=== PATIENT | female | born 1960 | race African-American/Black ===

== ENCOUNTER → 2017-11-01 11:20 | Outpatient (CLI) | payer MEDICAID, SELFPAY ==
[2017-11-06 15:19] LABS: HPV APTIMA, High Risk Positive (Negative)
== END ==
PROVIDERS: Visit Provider Obstetrics & Gynecology
DX: Z12.4 Encounter for screening for malignant neoplasm of cervix (principal); Z01.419 Encounter for gynecological examination (general) (routine) without abnormal findings
CPT/HCPCS: 88175; G0145

== ENCOUNTER → 2017-12-09 11:54 | Outpatient (CLI) | payer MEDICAID, SELFPAY ==
--- NOTE | 2017-12-09 | ECC_PTH ---
PATIENT: GALE HENNING LOC: [facility] U#:[id number] AGE/SX: 65/F ROOM: RE12/09/[address]: Dr. Franca Aden MD : 1960 BED: DIS: SPEC #: [id number] RECD: 12/09/17 14:19 STATUS: MEHDI FRACISCO #: [id number] ELENI: 12/09/17 00:[address]: Franca Little DEPT: SURGICAL PATHOLOGY RECD BY: Raul Vyas Tissues: Endocervical Procedures: Surgery Specimen Level IV HEADER OPERATION: Colposcopy PRE-OP DIAGNOSIS: LGSIL, positive HPV 11/01/17, LMP 12/09/17 TISSUE SUBMITTED: Endocervical curettings MICROSCOPIC DIAGNOSIS Endocervical curettings: Detached and unoriented fragments of ectocervical epithelium with focal changes suspicious mild dysplasia. Fragments of benign endocervical epithelium, blood and mucous. SJ:terrence 12/10/17 COMMENT Immunohistochemistry ([id number]) for surrogate HPV marker (p16) supports the above diagnosis. MICROSCOPIC DESCRIPTION Slides are reviewed. GROSS DESCRIPTION Received in fixative is one container labeled with the patient's name and designated ECC. The specimen consists of multiple fragments of hemorrhagic soft tissue mixed with mucoid tissue that in aggregate measure 1.5 x 1 x 0.1 cm. The specimen is totally submitted in one cassette. / SAI:terrence 12/09/17 TC:5 CPT: 83735
--- NOTE | 2017-12-09 | IMM_PTH ---
PATIENT: GALE HENNING LOC: [facility] U#:[id number] AGE/SX: 65/F ROOM: RE12/09/[address]: Dr. Franca Aden MD : 1960 BED: DIS: SPEC #: [id number] RECD: 12/10/17 10:42 STATUS: MEHDI FRACISCO #: [id number] ELENI: 12/09/17 00:[address]: Franca Little DEPT: IMMUNOHISTOCHEMISTRY RECD BY: Princess Canseco Tissues: Endocervical Procedures: p16 (initial) KI-67 (add) PHYSICIAN & INSTITUTION [place] [id number] SPECIMEN INFORMATION: Tissue Source: Endocervical curettings Clinical Info: LGSIL, positive HPV Specimen Number: [id number] CPT code: 90370, 74834 METHODOLOGY: Deparaffinized sections of prefer/formalin-fixed tissue or PAP/DQ stained slides are incubated with monoclonal/polyclonal antibodies/oligonucleotide probes. Localization is made via biotin free immunoperoxidase method. Appropriate controls are performed and reacted as expected. Results on target cell population are indicated in the following table: RESULTS: ANTIBODY / CLONE RESULT P16 (E6H4) positive, focal and patchy Ki-67 (30-9) negative These tests were developed and their performance characteristics determined by [facility]. They may not have been cleared or approved by the U.S. Food and Drug Administration. The FDA has determined that such clearance or approval is not necessary. INTERPRETATION: Endocervical curettings: Detached and unoriented fragments of squamous epithelium with focal changes suspicious for mild dysplasia. SJ:terrence 12/10/17
[2017-12-09 13:37] LABS: Absolute Lymphocyte Count 2.53 X10^3/ul (0.83-4.51); Absolute Neutrophil Count 3.2 X10^3/uL (2.0-7.7); Basophil# 0.03 X10^3/uL; Basophil% 0.4 % (0-1); Eosinophil# 0.23 X10^3/uL; Eosinophils% 3.4 % (0-5); Hematocrit 41.5 % (37-47); Hemoglobin 13.5 g/dl (12.0-15.0); Lymphocyte # 2.53 X10^3/ul (4.0); Lymphocyte % 37.9 % (19-41); Mean Corp Hgb Conc 32.5 g/gl (32-36); Mean Corpuscular Hgb 28.7 pg (27.0-32.0); Mean Corpuscular Volume 88.1 fL (81-99); Mean Platelet Vol. 11.9 fl (6.2-12.0); Monocyte# 0.68 X10^3/uL; Monocyte% 10.2 % (0-10); Neutrophil # 3.19 X10^3/uL (2.7-7.7); Platelet Count 226 K/mm3 (150-450); RBC Distribution Width CV 13.3 % (11.6-14.6); Red Blood Count 4.71 M/mm3 (4.2-5.4); White Blood Count 6.7 K/mm3 (4.4-11.0)
[2017-12-09 13:38] LABS: POSITIVE COUNT NO; POSITIVE DIFFERENTIAL NO; POSITIVE MORPHOLOGY NO
[2017-12-09 14:00] LABS: Free T3 2.7 pg/mL (2.18-3.98); T4 Free Direct 0.93 ng/dL (0.76-1.46); Thyroid Stim Hormone (TSH) 3.14 uIU/mL (0.358-3.74)
[2017-12-09 15:28] LABS: M R Staph aureus DNA By PCR Negative (Negative); Probe Check PASS; Specimen Processing Control PASS; Staph aureus DNA By PCR NEGATIVE (Negative)
[2017-12-09 15:38] LABS: M R Staph aureus DNA By PCR Negative (Negative); Probe Check PASS; Specimen Processing Control PASS
== END ==
PROVIDERS: Visit Provider Obstetrics & Gynecology
DX: R87.612 Low grade squamous intraepithelial lesion on cytologic smear of cervix (LGSIL) (principal)
CPT/HCPCS: 36415; 84439; 84443; 84481; 85025; 87640; 87641; 88305; 88341; 88342

== ENCOUNTER → 2017-12-09 14:33 | Outpatient (CLI) | payer MEDICAID, SELFPAY | PROVIDERS: Visit Provider Obstetrics & Gynecology | DX: R87.612 Low grade squamous intraepithelial lesion on cytologic smear of cervix (LGSIL) (principal) ==

== ENCOUNTER → 2018-01-16 15:08 | Outpatient (CLI) | payer MEDICAID, SELFPAY ==
--- NOTE | 2018-01-16 15:10 | US_ITS ---
STUDY: ULTRASOUND BREAST - RIGHT REASON FOR EXAM: Female, 57 years old. Abnormal mammogram TECHNIQUE: Axial and longitudinal images of the RIGHT breast were performed with a high resolution ultrasound transducer. COMPARISON: None. FINDINGS: RIGHT Breast: There is a lesion in the upper inner quadrant. The lesion measures 0.4 x 0.4 x 0.3 cm in size. Clock notation: 3 o'clock position. Distance from nipple: 4 cm. Posterior Enhancement: No. Posterior Shadowing: Moderate. Margins: Sharp and smooth. Echogenicity: Isoechoic. Compression effect on Shape: No change. US/Breast Complete Unilateral IMPRESSION: Probably benign lesion. Follow-up ultrasound in 6 months is recommended to ensure stability. ASSESSMENT CATEGORY: BIRADS Category 3: Probably Benign - Short-Interval Follow-up Suggested. A letter regarding these results will be sent to the patient by the facility within 30 days. Electronically Signed: Dayton Falcon MD at 11:18 EDT Tel , Service support ,
== END ==
PROVIDERS: Family Provider Nurse Practitioner Family; PCP Nurse Practitioner Family; Visit Provider Surgery
DX: R92.8 Other abnormal and inconclusive findings on diagnostic imaging of breast (principal)
CPT/HCPCS: 76641

== ENCOUNTER 2018-01-30 11:25 | Day surgery (SDC) | payer MEDICAID, SELFPAY ==
--- NOTE | 2018-01-29 12:19 | EKG12_ITS ---
Test Reason : PRE OP Blood Pressure : / mmHG Vent. Rate : 055 BPM Atrial Rate : 055 BPM P-R Int : 148 ms QRS Dur : 076 ms QT Int : 394 ms P-R-T Axes : 055 034 016 degrees QTc Int : 376 ms Sinus bradycardia Otherwise normal ECG Confirmed by MARIKA CHÁVEZ, LIZBETH ([id number]), brands editor CORNELIUS PUENTES ([id number]) on 01/31/2018 9:34:41 AM Referred By: Franca Paz Confirmed By:LIZBETH HAIRSTON MD
[2018-01-29 12:35] LABS: Hematocrit 44.1 % (37-47); Hemoglobin 14.5 g/dl (12.0-15.0); Mean Corp Hgb Conc 32.9 g/gl (32-36); Mean Corpuscular Hgb 29.3 pg (27.0-32.0); Mean Corpuscular Volume 89.1 fL (81-99); Mean Platelet Vol. 11.9 fl (6.2-12.0); Platelet Count 220 K/mm3 (150-450); RBC Distribution Width CV 13.9 % (11.6-14.6); RBC Distribution Width SD 45.4 fl (35.1-43.9); Red Blood Count 4.95 M/mm3 (4.2-5.4); White Blood Count 6.1 K/mm3 (4.4-11.0)
[2018-01-29 12:47] LABS: Partial Thromboplast Time 29.2 Seconds (24.1-36.2); Prothrombin Time (Protime)PT. 12.7 SECONDS (11.7-14.9); Scan Indicated on CBC? Y/N NO
[2018-01-29 12:59] LABS: Anion Gap 7 (5-15); BUN 8 mg/dL (7-18); BUN/Creat Ratio 11.4 RATIO (10-20); Calcium,Total 9.5 mg/dL (8.5-10.1); Chloride 105 mmol/L (98-107); EST Glomerular Filtration Rate 92 mL/min (>60); Est Glom Filt Rate - Afr Amer 111 mL/min (>60); Glucose 85 mg/dL (74-106); Potassium 4.1 mmol/L (3.5-5.1); Sodium Level 139 mmol/L (136-145)
[2018-01-30 11:45] VITALS: BP 187/93; PULSE 72; RESP 16; TEMP 36.8; O2SAT 99; BMI 34.0
[2018-01-30 11:49] LABS: Internal QC Validated? YES +Cl - CLEAR BKGD; Pregnancy, Urine Negative Negative
[2018-01-30] MEDS: FERRIC SUBSULFATE 8 GM SOLN (16:50)
--- NOTE | 2018-01-30 17:02 | PCM.DC.LEE ---
Discharge Diet: No Restrictions Discharge Activity: Return to Normal Activity, May Shower, - - No tub bath, may drive in 24-48 hours May resume sexual activity in: 4 weeks Lifting Restrictions: 20 lb Call your doctor if you observe: Fever of 101 or Higher, Inability to urinate, Inability to have a bowel movement, Using more than one pad per hour, Shortness of breath, Chest pain, Calf discomfort, Uncontrolled pain Allergies/Adverse Reactions: Allergies No Known Allergies Allergy (Verified 01/09/18 13:11) Medications to take at Discharge multivitamin tablet 1 tab PO QAM 12/26/17 silver sulfadiazine 1 % topical cream 1 applic TOPICAL PRN PRN 12/26/17 Ibuprofen 600 mg PO TID PRN #30 tab 01/30/18 The following prescriptions were given: Ibuprofen 600 mg PO TID PRN #30 tab PRN Reason: Pain Primary Care Physician: David Case, MAGAZINE JOURNALIST-C [Primary Care Provider] - Please Follow Up With: Franca Paz MD When: 2-4 weeks
[2018-01-30 17:03] VITALS: BP 150/90; BP 187/93; PULSE 73; RESP 16; TEMP 36; O2SAT 98
--- NOTE | 2018-01-30 17:03 | PCM.OPRPT ---
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 ectocervix. 2. top hat. 3. ecc Estimated Blood Loss (mL): 10 Description of Procedure: Patient was brought to the operating room and signed and was performed. She is placed in a dorsal supine position and induced under MAC anesthesia. She was then repositioned to dorsal lithotomy. The perineum and vagina were prepped and draped in sterile fashion. A insulated speculum was placed into the vagina and her cervical block totaling 20 cc of 1% lidocaine with epinephrine was administered. Lugol's solution was applied to the ectocervix. The ectocervical loop excisional biopsy was obtained. This was followed by a top hat and endocervical curettage. The cervical excisional bed was fulgurated using a ball electrode with excellent hemostasis. The procedure was complete. Sponge counts were correct ?2. The patient was awakened and transferred to the recovery room without complication. - Complications None - Admit VTE Documentation VTE Present on Admission: No VTE Mechan Device Prophylaxis: SCD's
[2018-01-30 17:15] VITALS: BP 147/107; BP 187/93; PULSE 67; RESP 18; O2SAT 96
[2018-01-30 17:30] VITALS: BP 141/83; BP 187/93; PULSE 64; RESP 18; O2SAT 98
[2018-01-30 17:47] VITALS: BP 155/78; BP 187/93; PULSE 64; RESP 18; TEMP 36.7; O2SAT 99
[2018-01-30 18:10] VITALS: BP 187/93
--- NOTE | 2018-01-31 | IMM_PTH ---
PATIENT: GALE HENNING LOC: [facility] – [place] U#:[id number] AGE/SX: 57/F ROOM: RE01/30/[address]: Dr. Franca Aden MD : 1960 BED: DIS: 01/30/2018 SPEC #: [id number] RECD: 02/03/18 12:11 STATUS: MEHDI REQ #: [id number] ELENI: 01/31/18 00:[address]: Franca Little DEPT: IMMUNOHISTOCHEMISTRY RECD BY: Karen Amador ENTERED: 02/03/18 12:11 SP TYPE: IMMUNO OTHR DR: David Case, EMBOSSER APPRENTICE-C Tissues: B - UTERINE CERVIX LEEP Procedures: p16 (initial) KI-67 (add) PHYSICIAN & INSTITUTION [place] [id number] SPECIMEN INFORMATION: Tissue Source: B. Warren wilson (cervix) open at 12 o?clock Clinical Info: Cervical dysplasia, low grade squamous intraepithelial lesion of cervix, high risk HPv Specimen Number: [id number], B4 CPT code: 66983, 65357 METHODOLOGY: Deparaffinized sections of prefer/formalin-fixed tissue or PAP/DQ stained slides are incubated with monoclonal/polyclonal antibodies/oligonucleotide probes. Localization is made via biotin free immunoperoxidase method. Appropriate controls are performed and reacted as expected. Results on target cell population are indicated in the following table: RESULTS: ANTIBODY / CLONE RESULT Block B4 P16 (E6H4) positive, patchy staining Ki-67 (30-9) positive, low to moderate These tests were developed and their performance characteristics determined by [facility]. They may not have been cleared or approved by the U.S. Food and Drug Administration. The FDA has determined that such clearance or approval is not necessary. INTERPRETATION: Paola lazo (cervix), LEEP cone: Mild squamous dysplasia Case has been reviewed in consultation with Dr. Melgar who concurs with the above diagnosis. IDC:VERO SJ:geri 02/04/18
--- NOTE | 2018-01-31 | CONE_PTH ---
PATIENT: GALE HENNING [place] [facility] [id number] AGE/SX: 57/F ROOM: RE01/30/[address]: Dr. Franca Aden MD : 1960 BED: DIS: 01/30/2018 SPEC #: [id number] RECD: 01/31/18 13:20 STATUS: MEHDI FRACISCO #: [id number] ELENI: 01/31/18 00:[address]: Franca Little DEPT: SURGICAL PATHOLOGY RECD BY: Raul Vyas ENTERED: 01/31/18 13:21 SP TYPE: Leep Cone GUI DR: David Case, LEAD MANUFACTURING ENGINEERING TECH-C Tissues: A - UTERINE CERVIX LEEP B - UTERINE CERVIX LEEP C - Endocervical Procedures: Surgery Specimen Level IV Surgery Specimen Level V HEADER OPERATION: LEEP cone PRE-OP DIAGNOSIS: Cervical dysplasia, low grade squamous intraepithelial lesion of cervix, high risk HPV TISSUE SUBMITTED: A. Ecto cervix, open at 6 o?clock, B. Top hat (cervix)open at 12 o?clock, C. Endocervical curettings after LEEP MICROSCOPIC DIAGNOSIS A. Ectocervix, LEEP conization: Negative for dysplasia. B. Top hat cervix, LEEP conization: Focal mild squamous dysplasia with HPV changes (LGSIL and LOWELL I). Resection margins are free of dysplastic changes. See comment. C. Endocervical curettings after LEEP. Fragments of benign ecto and endocervical epithelium with focal squamous metaplasia. Negative for dysplasia. Fragments of benign endometrial tissue. Fragments of foreign material with degenerative changes and calcification. SAI:kirill 02/03/18 COMMENT B. Immunohistochemistry ([id number]) supports the above diagnosis. Please make reference to previous specimen [id number] endocervical curettings with diagnosis of detached and unoriented fragments of ectocervical epithelium with focal changes, suspicious for mild dysplasia. Case has been reviewed in consultation with Dr. Melgar who concurs with the above diagnosis. IDC:AM MICROSCOPIC DESCRIPTION Slides are reviewed. GROSS DESCRIPTION A. Received in fixative is one container labeled with the patient's name and designated left cervix open at 6 o'clock. The specimen consists of perez indurated piece of soft consistent with LEEP conization measuring 2 x 1 x 0.4 cm. No mucosal lesion is identified. No mucosal surface is inked black. Endocervical margins inked black. This specimen is serially sectioned and submitted entirely in 4 cassettes as follows: 1 ? 12 to 3 o?clock, 2 ? 3 to 6 o?clock, 3 ? 6 to 9 o? clock, 4 ? 9 to 12 o?clock. B. Received in fixative is one container labeled with the patient's name and designated top hat cervix open at 12 o?clock. The specimen consists of perez indurated piece of tissue consistent with LEEP conization measuring 1.4 x 1 x 0.6 cm. No mucosal lesion is identified. No mucosal surface is inked black. The specimen is serially sectioned and submitted entirely in 4 cassettes as follows: 1 ? 12 to 3 o?clock, 2 ? 3 to 6 o?clock, 3 ? 6 to 9 o?clock, 4 ? 9 to 12 o?clock. C. Received in fixative is one container labeled with the patient's name and designated endocervical curettings after LEEP. multiple fragments of perez hemorrhagic soft tissue that in aggregate measure 1.5 x 0.2 x 0.1 cm. The entire specimen is submitted in one cassette. SAI:kirill 01/31/18 TC:5 CPT: 35936 x2, 37091
== END 2018-01-30 18:25 | disposition home or self-care (01) ==
LOC: SDC 11:25 → AC 11:26
PROVIDERS: Family Provider Nurse Practitioner Family; PCP Nurse Practitioner Family; Visit Provider Obstetrics & Gynecology
PROC: 0UBC7ZZ Excision of Cervix, Via Natural or Artificial Opening (ICD-10-PCS; CPT 57522; principal; 2018-01-30 12:55)
DX: N87.0 Mild cervical dysplasia (principal); Z87.891 Personal history of nicotine dependence
CPT/HCPCS: 57522; 36415; 80048; 81025; 85027; 85610; 85730; 86850; 86900; 88305; 88307; 88341; 88342; 93005; J7120; J2405

== ENCOUNTER → 2018-02-19 12:27 | Outpatient (CLI) | payer MEDICAID, SELFPAY ==
--- NOTE | 2018-02-19 | BRBX_PTH ---
PATIENT: GALE HENNING LOC: [facility] U#:[id number] AGE/SX: 65/F ROOM: RE02/19/[address]: Dr. Willis Woodard MD : 1960 BED: DIS: SPEC #: [id number] RECD: 02/19/18 14:01 STATUS: MEHDI FRACISCO #: [id number] ELENI: 02/19/18 00:[address]: Willis Woodard DEPT: SURGICAL PATHOLOGY RECD BY: Raul Vyas ENTERED: 02/19/18 14:01 SP TYPE: BREAST BX OTHR DR: David Case, STRAP SEWER-C Tissues: Right breast, NOS Procedures: Surgery Specimen Level IV HEADER OPERATION: Ultrasound-guided right breast biopsy PRE-OP DIAGNOSIS: Right breast nodule TISSUE SUBMITTED: Right breast core tissue ISCHEMIC TIME: 1 minute FIXATION TIME: 6.5 hours MICROSCOPIC DIAGNOSIS Right breast, ultrasound-guided core biopsy: Fragments of fibroadipose tissue with chronic inflammation and dystrophic calcifications. Numerous blood clots. Breast tissue is not identified in the submitted specimen. Negative for atypia or malignancy. SAI:terrence 02/20/18 COMMENT Correlation with clinical, radiologic findings and appropriate follow up are necessary. MICROSCOPIC DESCRIPTION Slides are reviewed. GROSS DESCRIPTION Received is one container labeled with the patient's name and not further designated. The specimen consists of multiple elongated fragments of perez-yellow fibroadipose tissue that in aggregate measure 2.5 x 1.5 x 0.2 cm. Also present in the container are multiple blood clots measuring in aggregate 3 x 2.5 x 0.3 cm. The entire specimen is submitted in two cassettes as follows: 1 ? blood clots, 2 ? adipose tissue. / SAI:terrence 02/19/18 TC:5 [facility]: [id number]
--- NOTE | 2018-02-19 12:31 | US_ITS ---
STUDY: ULTRASOUND BREAST - RIGHT REASON FOR EXAM: Female, 57 years old. Abnormal right breast ultrasound. TECHNIQUE: Axial and longitudinal images of the RIGHT breast were performed with a high resolution ultrasound transducer. COMPARISON: Comparison is made with prior ultrasound the right breast dated January 16, 2018. FINDINGS: RIGHT Breast: There is a 4 mm x 4 mm x 2 mm well-defined hyperechoic nodule with posterior shadowing. This may represent a calcified cyst. Ultrasound-guided biopsy was performed. The probe is within the nodule. A clip was placed. US/US Breast Biopsy 1st Lesion IMPRESSION: Successful ultrasound-guided biopsy of the echogenic nodule at the 2:00 position of the breast at 4 sinus on the nipple. ASSESSMENT CATEGORY: BIRADS Category 2: Benign. A letter regarding these results will be sent to the patient by the facility within 30 days. Electronically Signed: Michel Kohler MD at 14:23 EDT Tel [phone], Service support ,
--- NOTE | 2018-03-04 18:20 | PCM.OPRPT ---
Problem List (1) Abnormal finding on breast imaging Status: Acute Report of Operation Date of Procedure: 02/19/18 Pre-Operative Diagnosis: Abnormal ultrasound to right breast Post-Operative Diagnosis: Same Surgery/Procedure Performed:: Ultrasound-guided needle core biopsy of right breast Type of Anesthesia:: Local Description of Procedure: Patient was brought into the ultrasound room. The right breast was ultrasounded at the 2 o'clock position. The lesion was identified. The breast was prepped with Betadine. 1% lidocaine plain was injected. A small skin sabine was made. Under ultrasound guidance 3 needle core biopsies of this lesion were obtained. Under ultrasound guidance a small titanium clip was placed. Sterile dressings were applied. The patient tolerated the procedure well. - Admit VTE Documentation VTE Present on Admission: No VTE Mechan Device Prophylaxis: None VTE Pharm Prophylaxis ordered?: No Reason prophylaxis not ordered:: Treatment Not Indicated
== END ==
PROVIDERS: Family Provider Nurse Practitioner Family; PCP Nurse Practitioner Family; Visit Provider Surgery
DX: R92.8 Other abnormal and inconclusive findings on diagnostic imaging of breast (principal)
CPT/HCPCS: 19083; 88305

== ENCOUNTER → 2018-07-21 17:00 | Outpatient (CLI) | payer MEDICAID, SELFPAY ==
--- NOTE | 2018-07-21 17:00 | EMB_PTH ---
PATIENT: GALE HENNING LOC: [facility] U#:[id number] AGE/SX: 65/F ROOM: RE07/21/[address]: Dr. Franca Aden MD : 1960 BED: DIS: SPEC #: [id number] RECD: 07/22/18 11:04 STATUS: MEHDI FRACISCO #: [id number] ELENI: 07/21/18 17:[address]: Franca Little DEPT: SURGICAL PATHOLOGY RECD BY: Hank Ross ENTERED: 07/22/18 12:04 SP TYPE: ENDOM BX/C GUI DR: David Case, CHELSEA-C Tissues: Endometrium, NOS Procedures: Surgery Specimen Level IV HEADER OPERATION: Endometrial biopsy PRE-OP DIAGNOSIS: Premenopausal menorrhagia TISSUE SUBMITTED: Endometrial biopsy MICROSCOPIC DIAGNOSIS Endometrial biopsy: Proliferative endometrium with glandular and stromal breakdown and blood clots. Desquamated benign ectocervical epithelial cells. SJ:terrence 07/23/18 MICROSCOPIC DESCRIPTION Slides are reviewed. GROSS DESCRIPTION Received in fixative is one container labeled with the patient's name and designated EM biopsy. The specimen consists of multiple fragments of hemorrhagic soft tissue that in aggregate measure 2.5 x 2.5 x 0.2 cm. The specimen is totally submitted in one cassette. / SAI:terrence 07/22/18 TC:5 CPT: 16048
--- OUTSIDE RECORDS SUMMARY | 2018-10-23 20:08 | XMS RPT_ITS ---
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 1 tab PO QAM 12/26/17 [History Confirmed 01/09/18] silver sulfadiazine 1 % topical cream 1 applic TOPICAL PRN PRN 12/26/17 [History Confirmed 01/09/18] Ibuprofen 600 mg PO TID PRN #30 tab 01/30/18 [Rx] PFSH Surgical History Abscess, neck (Acute) Hx of hand surgery (Acute) Family History Mother Hypertension Social History Smoking Status: Former smoker alcohol intake: current alcohol intake frequency: holidays/special occasions only HPI HPI HPI: IMANI HENNING, is a 57 F who presents to the office today for abnormal mammogram and ultrasound. Patient had her mammogram and ultrasound completed on 10/17/2016. The mammogram was incomplete showing a 7 mm density in the right breast which appear to be indeterminate and ultrasound was recommended the ultrasound was negative since the mammographic lesion was probably benign representing a intramammary lymph node a follow- up of the right diagnostic mammogram in 6 months was recommended to demonstrate stability. I however do not have these films available to me ROS General General: Yes fatigue; no weight change, appetite, colon cancer, breast cancer or weakness HEENT HEENT: No difficulty swallowing, eye injury, eye surgery, swollen glands or hoarseness Endo Endocrine: No thyroid disease, diabetes mellitus, thyroid cancer, Hair loss, heat intolerance or cold intolerance Skin Skin: Yes rash; no changing moles Breast Breast: No left breast lump, right breast lump, nipple discharge, breast pain, abnormal mammogram, abnormal US or breast enlargement Musc Musculoskeletal: No back problems, arthritis, rheumatoid arthritis, gout or joint pain Cardio Cardiovascular: Yes high blood pressure; no murmur, pacemaker, heart disease, atrial fibrillation, heart attack, heart stent, palpitations, shortness of breat with exertion or chest pain Psych Psychiatric: No depression, anxiety or hearing voices Resp Respiratory: Yes cough, No shortness of breath, No sleep apnea, No COPD, No asthma, No emphysema, No wheezing Gastro Gastrointestinal: Yes abdominal pain, No nausea or vomiting, No diarrhea, No constipation, No blood in stool, No acid reflux, No hemorrhoids, No ulcers, No gallbladder problem, No black,tarry stools Ayo Hematologic: No blood thinners, No blood disorders, No bleeding, No anemia, No blood clots Neuro Neurologic: No system reviewed and no additional complaints, except as docu, No as per HPI, No abnormal walking, No abnormal hearing, No abnormal movements, No abnormal speech, No behavioral changes, No burning sensations, No confusion, No seizure-like activity, No unsteadiness, No dizziness, No localized weakness, No frequent falls, No headache(s), No lack of coordination, No loss of vision, No memory loss, No numbness, No other visual disturbances, No radiating pain, No restless legs, No sensory deficit, No fainting, No tingling, No tremor(s), No weakness, No other Exam HENMT Head: normal to inspection, normocephalic, atraumatic Mouth: moist mucous membranes, oropharynx normal Eyes General: appearance normal, both eyes and all related structures Sclera: sclerae normal Neck Neck: no lymphadenopathy noted, trachea midline Neck mass: No Thyroid: thyroid normal Lymphatic: no lymphadenopathy noted Chest Breast inspection: normal inspection of the breasts Breast Palpation: No nipple discharge Resp Other: Respiratory Exam: Deferred Cardio Heart Sounds: no murmurs Other: Cardiac Exam: Deferred GI Other: GI Exam: Deferred Other: Rectal Exam: Deferred Extrem Other: Extremity Exam: Deferred Assessment AND Plan Problems 1. Abnormal mammogram of right breast R92.8 Plan I have discussed above with the patient. I have recommended ultrasound guided needle core breast biopsy with vacuum assistance. I have described the procedure to the patient. I have discussed with the patient that sometimes the ultrasound lesion may be artifact and is user dependent and therefore prior to undergoing the procedure, the patient will have a definitive US to ensure that the lesion is truly present and is not artifact. A marker clip will be placed to identify the location. Patient has been counseled to the risks/benefits of the procedure. I have explained the risks of the surgery, including but not limited to: infection, bleeding, injury to any blood vessels/nerves, scar tissue, missing the lesion, further surgery, etc. - the patient understands and agrees to proceed. I have answered all of the patient's questions to her satisfaction and she has no further questions. Coding Level of Care Code Off vis,new,level 3 Diagnoses Abnormal mammogram of right breast R92.8 02/10/18 1234 <Electronically signed by Willis Woodard MD> Date Willis Woodard MD Cosigner Signature: Date (if applicable) CC: GATE PERSON-Hoang Case; Genet RIOS; Yazmin Barrera SURGERY VISIT REPORT Observed: 02/10/2018 Status: F Source: [place] 11:29 AM [facility] [address] [place] [address] [address] [place] [address] OFFICE VISIT Date of Service: 01/01/18 MR#: [id number] Acct: [id number] Name: IMANI HENNING Rep #: [id number] : 1960 Provider: Willis Woodard MD Age/Sex: 57/F Location: [facility] [place] Status: Signed Intake Intake Visit Reasons: US GUIDED R NEEDLE CORE BX 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 Required: No Is patient in pain?: No Allergies No Known Allergies Allergy (Verified 01/09/18 13:11) Medications multivitamin tablet 1 tab PO QAM 12/26/17 [History Confirmed 01/09/18] silver sulfadiazine 1 % topical cream 1 applic TOPICAL PRN PRN 12/26/17 [History Confirmed 01/09/18] Ibuprofen 600 mg PO TID PRN #30 tab 01/30/18 [Rx] PFSH Surgical History Abscess, neck (Acute) Hx of hand surgery (Acute) Family History Mother Hypertension Social History Smoking Status: Former smoker alcohol intake: current alcohol intake frequency: holidays/special occasions only HPI HPI HPI: IMANI HENNING, is a 57 F who presents to the office today for us for an attempted ultrasound-guided needle core biopsy of a lymph node in her right breast. These were done from October 2016 where she was given a BI-RADS Category 3. Her most recent mammograms though were done on 12/05/2017 she however did not have an ultrasound repeated at that time. With my ultrasound I was unable to see anything definitive that need to be biopsied. Office Procedures Procedure Time Out Time Out Informed consent given: Yes Consent signed: Yes Time out checklist: patient, procedure, site marked/identified, positioning of patient, supplies available, allergies confirmed, team agrees on procedure Time out staff in room: Yes Time out verified: Yes Time out date: 01/01/18 Time out time: 13:22 Assessment AND Plan Problems 1. Abnormal mammogram of right breast R92.8 Plan I am going to obtain a formal ultrasound of the right breast. In addition I am going to have the patient obtain a CD with her most recent mammograms and ultrasounds from the last several years. She does not have a six-month follow-up mammogram or ultrasound with a BI-RADS Category 3 which was from October 2016 and I think it is important that we do obtain the studies to follow her care. Orders Orders: Coding Level of Care Code Off vis,est,level 2 Diagnoses Abnormal mammogram of right breast R92.8 02/10/18 1129 <Electronically signed by Willis Woodard MD> Date Willis Woodard MD Cosign Signature: Date (if applicable) CC: Yazmin Barrera 12 LEAD ELECTROCARDIOGRAM Observed: 01/31/2018 Status: F Source: [place] 9:34 AM [facility] Cardiovascular Services [address] [place] [address] 12 Lead EKG 01/29/18 1227 MR#: [id number] Acct: [id number] Name: IMANI HENNING Rep #: [id number] : 1960 57 From: Keyur Browning MD Attending Dr: Mariela Paz MD Status: DEP [facility] Ordering Dr: Mariela Paz MD Date: 01/29/18 Location: [facility] Sex: F AA Admitted: Test Reason : PRE OP Blood Pressure : / mmHG Vent. Rate : 055 BPM Atrial Rate : 055 BPM P-R Int : 148 ms QRS Dur : 076 ms QT Int : 394 ms P-R-T Axes : 055 034 016 degrees QTc Int : 376 ms Sinus bradycardia Otherwise normal ECG Confirmed by KEYUR BROWNING MD ([id number]), material expeditor CORNELIUS PUENTES ([id number]) on 01/31/2018 9:34:41 AM Referred By: Mariela Paz Confirmed By:KEYUR BROWNING MD 01/31/18 0934 Date Keyur Browning MD CC: GATE PERSON-C David Case; Mariela Paz MD Signed IMMUNOHISTOCHEMISTRY Observed: 01/31/2018 Status: F Source: [place] 12:00 AM [facility] Patient: IMANI HENNING : 1960 (57/F) Acct Num: [id number] Phys: Mariela Paz MD Unit Num: [id number] Loc: [facility] Specimen: [id number] Received: 02/03/18 - 121 Spec Type: IMMUNO TISSUES TISSUES: B. UTERINE CERVIX LEEP SPECIMEN INFORMATION: Tissue Source: B. Top hat (cervix) open at 12 o clock Clinical Info: Cervical dysplasia, low grade squamous intraepithelial lesion of cervix, high risk HPv Specimen Number: [id number], B4 CPT code: 49222, 10237 METHODOLOGY: Deparaffinized sections of prefer/formalin-fixed tissue or PAP/DQ stained slides are incubated with monoclonal/polyclonal antibodies/oligonucleotide probes. Localization is made via biotin free immunoperoxidase method. Appropriate controls are performed and reacted as expected. Results on target cell population are indicated in the following table: RESULTS: ANTIBODY / CLONE RESULT Block B4 P16 (E6H4) positive, patchy staining Ki-67 (30-9) positive, low to moderate These tests were developed and their performance characteristics determined by [facility]. They may not have been cleared or approved by the U.S. Food and Drug Administration. The FDA has determined that such clearance or approval is not necessary. INTERPRETATION: BAkbar Top hap (cervix), LEEP cone: Mild squamous dysplasia Case has been reviewed in consultation with Dr. Melgar who concurs with the above diagnosis. IDC:AM SJ:geri 02/04/18 PHYS[facility]IAN [facility] INSTIT[facility] [address] [address] Signed Wesley Canseco 02/04/18 <signature on file> Performed By: #### PIMM #### [facility] [address] [place] [address]. [place], [place], [id number] LEEP CONIZATION Observed: 01/31/2018 Status: F Source: [place] 12:00 [facility] REPOSITORY Patient: IMANI HENNING : 1960 (57/F) Acct Num: [id number] Phys: Cecile CHÁVEZ,Summer Unit Num: [id number] Loc: [facility] Specimen: [id number] Received: 01/31/18 - 1320 Spec Type: Leep Cone TISSUES TISSUES: A. UTERINE CERVIX LEEP B. UTERINE CERVIX LEEP C. Endocervical COMMENT B. Immunohistochemistry ([id number]) supports the above diagnosis. Please make reference to previous specimen [id number] endocervical curettings with diagnosis of detached and unoriented fragments of ectocervical epithelium with focal changes, suspicious for mild dysplasia. Case has been reviewed in consultation with Dr. Melgar who concurs with the above diagnosis. IDC:AM GROSS DESCRIPTION A. Received in fixative is one container labeled with the patient's name and designated left cervix open at 6 o'clock. The specimen consists of perez indurated piece of soft consistent with LEEP conization measuring 2 x 1 x 0.4 cm. No mucosal lesion is identified. No mucosal surface is inked black. Endocervical margins inked black. This specimen is serially sectioned and submitted entirely in 4 cassettes as follows: 1 12 to 3 o clock, 2 3 to 6 o clock, 3 6 to 9 o clock, 4 9 to 12 o clock. B. Received in fixative is one container labeled with the patient's name and designated top hat cervix open at 12 o clock. The specimen consists of perez indurated piece of tissue consistent with LEEP conization measuring 1.4 x 1 x 0.6 cm. No mucosal lesion is identified. No mucosal surface is inked black. The specimen is serially sectioned and submitted entirely in 4 cassettes as follows: 1 12 to 3 o clock, 2 3 to 6 o clock, 3 6 to 9 o clock, 4 9 to 12 o clock. C. Received in fixative is one container labeled with the patient's name and designated endocervical curettings after LEEP. multiple fragments of perez hemorrhagic soft tissue that in aggregate measure 1.5 x 0.2 x 0.1 cm. The entire specimen is submitted in one cassette. SJ:kirill 01/31/18 TC:5 CPT: 77492 x2, [address] HEADER OPERATION: LEEP cone PRE-OP DIAGNOSIS: Cervical dysplasia, low grade squamous intraepithelial lesion of cervix, high risk HPV TISSUE SUBMITTED: A. Ecto cervix, open at 6 o clock, B. Top hat (cervix)open at 12 o clock, C. Endocervical curettings after LEEP MICROSCOPIC DESCRIPTION Slides are reviewed. MICROSCOPIC DIAGNOSIS A. Ectocervix, LEEP conization: Negative for dysplasia. B. Top hat cervix, LEEP conization: Focal mild squamous dysplasia with HPV changes (LGSIL and LOWELL I). Resection margins are free of dysplastic changes. See comment. C. Endocervical curettings after LEEP. Fragments of benign ecto and endocervical epithelium with focal squamous metaplasia. Negative for dysplasia. Fragments of benign endometrial tissue. Fragments of foreign material with degenerative changes and calcification. SJ:kirill 02/03/18 Signed Wesley Canseco 02/04/18 <signature on file> Performed By: #### ESTRELLITA #### [facility] [place], [address] OPERATIVE REPORT Observed: 01/30/2018 Status: F Source: VIJI 5:07 PM [facility] Medical Records Department [address] [place] [address] Operative Report 01/30/181702 MR#: [id number] Acct: [id number] Name: IMANI HENNING Rep #: [id number] : 1960 57 From: Mariela Aden MD PCP: JOSE ANGEL Licea Status: REG [facility] Y Location: [place] [address] Problem List (1) Cervical dysplasia, mild Status: Acute Report of Operation Date of Procedure: 01/30/18 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 ectocervix. 2. top hat. 3. ecc Estimated Blood Loss (mL): 10 Description of Procedure: Patient was brought to the operating room and signed and was performed. She is placed in a dorsal supine position and induced under MAC anesthesia. She was then repositioned to dorsal lithotomy. The perineum and vagina were prepped and draped in sterile fashion. A insulated speculum was placed into the vagina and her cervical block totaling 20 cc of 1% lidocaine with epinephrine was administered. Lugol's solution was applied to the ectocervix. The ectocervical loop excisional biopsy was obtained. This was followed by a top hat and endocervical curettage. The cervical excisional bed was fulgurated using a ball electrode with excellent hemostasis. The procedure was complete. Sponge counts were correct 2. The patient was awakened and transferred to the recovery room without complication. - Complications None - Admit VTE Documentation VTE Present on Admission: No VTE Mechan Device Prophylaxis: SCD's 01/30/181706 <Electronically signed by Mariela Paz MD> Date Mariela Paz MD CC: GATE PERSON-C David Case; Mariela Paz MD Signed DISCHARGE INSTRUCTION Observed: 01/30/2018 Status: F Source: [place] 5:03 PM [facility] Medical Records Department [address] [place] [address] Instructions for Home/Discharge Instructions 01/30/181701 MR#: [id number] Acct: [id number] Name: IMANI HENNING Rep #: [id number] : 1960 57 From: Mariela Aden MD PCP: JOSE ANGEL Licea Status: REG [facility] Discharge Diet: No Restrictions Discharge Activity: Return to Normal Activity, May Shower, - - No tub bath, may drive in 24-48 hours May resume sexual activity in: 4 weeks Lifting Restrictions: 20 lb Call your doctor if you observe: Fever of 101 or Higher, Inability to urinate, Inability to have a bowel movement, Using more than one pad per hour, Shortness of breath, Chest pain, Calf discomfort, Uncontrolled pain Allergies/Adverse Reactions: Allergies No Known Allergies Allergy (Verified 01/09/18 13:11) Medications to take at Discharge multivitamin tablet 1 tab PO QAM 12/26/17 silver sulfadiazine 1 % topical cream 1 applic TOPICAL PRN PRN 12/26/17 Ibuprofen 600 mg PO TID PRN #30 tab 01/30/18 The following prescriptions were given: Ibuprofen 600 mg PO TID PRN #30 tab PRN Reason: Pain Primary Care Physician: David Case NP-C [Primary Care Provider] - Please Follow Up With: Mariela Paz MD When: 2-4 weeks 01/30/181702 <Electronically signed by Mariela Paz MD> Date Mariela Paz MD CC: GATE PERSON-C David Csae ,URINE Collected: 01/30/2018 Status: F Source: [place]JI 11:30 AM [facility] TYPE CODE TESTS RESULT OUT OF REFERENCE UNITS RANGE LAB L400.8000 Negative Normal HCGUQUAL Negative Result Comment: Very dilute urine specimens, as indicated by a low specific gravity, may not contain eligibility services representative levels of hCG. If is still suspected, a first morning urine specimen should be collected 48 hours later and tested. Performed By: #### L400.7600 #### [facility] [address] [place], [address] CBC-COMPLETE BLOOD CNT Collected: 01/29/2018 Status: F Source: VIJI NO DIFF 12:10 PM [facility] TYPE CODE TESTS RESULT OUT OF RANGE REFERENCE UNITS LAB L100.1000 4.4-11.0 K/mm3 Normal WBC 6.1 LAB L100.1200 4.2-5.4 M/mm3 Normal RBC 4.95 LAB L100.1300 12.0-15.0 g/dl Normal HGB 14.5 LAB L100.1400 37-47 % Normal HCT 44.1 LAB L100.1500 81-99 fL Normal MCV 89.1 LAB L100.1600 27.0-32.0 pg Normal MCH 29.3 LAB L100.1700 32-36 g/gl Normal MCHC 32.9 LAB L100.1810 11.6-14.6 % Normal RDW CV 13.9 LAB L100.1820 35.1-43.9 fl High RDW SD 45.4 LAB L100.1900 150-450 K/mm3 Normal PLT 220 LAB L100.2000 6.2-12.0 fl Normal MPV 11.9 Performed By: #### L100.0500 #### [facility] [address] [place], [place], [id number] PROTHROMBIN TIME W/INR Collected: 01/29/2018 Status: F Source: [place] 12:10 PM [facility] TYPE CODE TESTS RESULT OUT OF RANGE REFERENCE UNITS LAB L300.4150 11.7-14.9 SECONDS Normal PROTIME 12.7 LAB L300.4200 Normal INR 1.0 Performed By: #### L300.3900, L300.4310 #### [facility] [address] [place], [place], [address] PARTIAL THROMBOPLAST Collected: 01/29/2018 Status: F Source: [place]JI TIME 12:10 PM [facility] TYPE CODE TESTS RESULT OUT OF RANGE REFERENCE UNITS LAB L300.4310 24.1-36.2 Seconds Normal PTT 29.2 Performed By: #### L300.3900, L300.4310 #### [facility] [address] [place], [address] BASIC METABOLIC Collected: 01/29/2018 Status: F Source: [place] PROFILE (BMP) 12:10 PM [facility] TYPE CODE TESTS RESULT OUT OF RANGE REFERENCE UNITS LAB L501.0100 74-106 mg/dL Normal GLU 85 Result Comment: Please note revised GLUCOSE reference range effective 2017. LAB L501.1000 7-18 mg/dL Normal BUN 8 LAB L501.1100 0.55-1.02 mg/dL Normal CREAT,SERUM 0.70 Result Comment: The validity of the calculated GFR AND GFRAA in patients over 70 years has not been determined. Clinical correlation is essential. LAB L501.1110 >60 mL/min Normal EST GFR 92 Result Comment: Non- GFR Calc LAB L501.1115 >60 mL/min Normal EST GFR - AA 111 Result Comment: GFR Calc LAB L501.1300 10-20 RATIO Normal BUN/CRE 11.4 LAB L501.2200 8.5-10.1 mg/dL CA Normal 9.5 LAB L501.5300 136-145 mmol/L NA Normal 139 LAB L501.5600 3.5-5.1 mmol/L K Normal 4.1 LAB L501.5900 98-107 mmol/L CL Normal 105 LAB L501.6100 21.0-32.0 mmol/L Normal CO2 27.0 LAB L501.6200 5-15 Normal GAP 7 Performed By: #### L500.2500 #### [facility] [address] [place], [address] TYPE AND SCREEN Collected: 01/29/2018 Status: F Source: [place] 12:10 PM [facility] Order Comment: Surgery Date: 01/30/18 Hx of Preganancy in last 3 Months No Ever experience any problems with transfusion(s)? N Hx of Transfusion in last 3 Months N Reason for Type AND Screen/Red Cells: SURGERY SURGICAL PROCEDURE: 75421 TYPE CODE TESTS RESULT OUT OF RANGE REFERENCE UNITS LAB B10.0800 O Normal BLOOD TYPE GEL POSITIVE LAB B100.4000 Normal Antibody NEGATIVE Screen Performed By: #### B101.7475 #### [facility] [address] [place], [address] BREAST COMPLETE Observed: 01/16/2018 Status: F Source: [place] UNILATERAL 3:10 PM [facility] Imaging Services [address] [place] [address] Breast Complete Unilateral MR#: [id number] Acct: [id number] Name: IMANI HENNING Rep #: [id number] : 1960 F 57 From: Dayton Falcon MD PCP: JOSE ANGEL Licea Status: REG CLI Study: Breast Complete Unilateral Date of Exam: 01/16/18 Exam# [id number] Ordering Dr: Willis Woodard MD STUDY: ULTRASOUND BREAST - RIGHT REASON FOR EXAM: Female, 57 years old. Abnormal mammogram TECHNIQUE: Axial and longitudinal images of the RIGHT breast were performed with a high resolution ultrasound transducer. COMPARISON: None. FINDINGS: RIGHT Breast: There is a lesion in the upper inner quadrant. The lesion measures 0.4 x 0.4 x 0.3 cm in size. Clock notation: 3 o'clock position. Distance from nipple: 4 cm. Posterior Enhancement: No. Posterior Shadowing: Moderate. Margins: Sharp and smooth. Echogenicity: Isoechoic. Compression effect on Shape: No change. US/Breast Complete Unilateral IMPRESSION: Probably benign lesion. Follow-up ultrasound in 6 months is recommended to ensure stability. ASSESSMENT CATEGORY: BIRADS Category 3: Probably Benign - Short-Interval Follow- up Suggested. A letter regarding these results will be sent to the patient by the facility within 30 days. Electronically Signed: Dayton Falcon MD at 11:18 EDT Tel , Service support , CC: JOSE ANGEL Case; Willis Woodard MD Tactical Debriefer Officer: Signed CBC W/DIFF, AUTOMATED Collected: 12/09/2017 Status: F Source: [place] 11:58 AM [facility] TYPE CODE TESTS RESULT OUT OF RANGE REFERENCE UNITS LAB L100.1000 4.4-11.0 K/mm3 Normal WBC 6.7 LAB L100.1200 4.2-5.4 M/mm3 Normal RBC 4.71 LAB L100.1300 12.0-15.0 g/dl Normal HGB 13.5 LAB L100.1400 37-47 % Normal HCT 41.5 LAB L100.1500 81-99 fL Normal MCV 88.1 LAB L100.1600 27.0-32.0 pg Normal MCH 28.7 LAB L100.1700 32-36 g/gl Normal MCHC 32.5 LAB L100.1810 11.6-14.6 % Normal RDW CV 13.3 LAB L100.1820 35.1-43.9 fl Normal RDW SD 43.0 LAB L100.1900 150-450 K/mm3 Normal PLT 226 LAB L100.2000 6.2-12.0 fl Normal MPV 11.9 LAB L100.2100 47-70 % Normal NEUT% 48.0 LAB L100.2200 19-41 % Normal LY% 37.9 LAB L100.2300 0-10 % High MONO% 10.2 LAB L100.2400 0-5 % Normal EO% 3.4 LAB L100.2500 0-1 % Normal BASO% 0.4 LAB L100.2550 0.0-0.9 % Normal IM GRAN % 0.100 Result Comment: IG% - Immature Granulocytes (promyelocytes, myelocytes and metamyelocytes) > 1% indicates that a LEFT SHIFT is Present. LAB L100.2620 2.0-7.7 X10 3/uL Normal Absolute Neut 3.2 LAB L100.2720 0.83-4.51 X10 3/ul Normal Absolute Lymph 2.53 Performed By: #### L100.0100 #### [facility] [address] [place], [address] FREE T3 Collected: 12/09/2017 Status: F Source: [place] 11:58 AM [facility] [place] CODE TESTS RESULT OUT OF RANGE REFERENCE UNITS LAB L501.66434 2.18-3.98 pg/mL Normal FREE T3 2.7 Performed By: #### L501.42275, L501.9520, L506.0400 #### [facility] [address] [place], [address] THYROID STIM HORMONE Collected: 12/09/2017 Status: F Source: VIJI (TSH) 11:58 AM [facility] [place] TYPE CODE TESTS RESULT OUT OF RANGE REFERENCE UNITS LAB L501.9520 0.358-3.74 uIU/mL Normal TSH 3.14 Performed By: #### L501.96821, L501.9520, L506.0400 #### [facility] [address] [place] [address] [place], [address] T4 FREE DIRECT Collected: 12/09/2017 Status: F Source: [place] 11:58 AM [facility] [place] TYPE CODE TESTS RESULT OUT OF RANGE REFERENCE UNITS LAB L506.0400 0.76-1.46 ng/dL Normal T4 FREE 0.93 DIRECT Performed By: #### L501.32093, L501.9520, L506.0400 #### [facility] [address] [place] [address] [place], [address] MRSA WOUND DNA BY Collected: 12/09/2017 Status: F Source: [place] PCR 11:46 AM [facility] [place] Order Comment: Specimen Source? CYST ON BACK FOR CULTURE TYPE CODE TESTS RESULT OUT OF RANGE REFERENCE UNITS LAB L8200.1100 Negative Normal MRSA Negative RESULT LAB L8200.1150 Negative Normal SA RESULT NEGATIVE Performed By: #### L8200.1075 #### [facility] [address] [place], [address] M R STAPH AUREUS Collected: 12/09/2017 Status: F Source: VIJI DNA BY PCR 11:45 AM [facility] [place] Order Comment: Comments: SWAB OF NASAL Source: NASAL SWAB TYPE CODE TESTS RESULT OUT OF RANGE REFERENCE UNITS LAB L8200.1100 Negative Normal MRSA Negative RESULT Performed By: #### L8200.1000 #### [facility] [address] [place], [place], [address] ENDOCER CURETT/BIOPSY Observed: 12/09/2017 Status: F Source: VIJI 12:00 AM [facility] [place] Patient: IMANI HENNING : 1960 (57/F) Acct Num: [id number] Phys: Cecile CHÁVEZ,[facility] Unit Num: [id number] Loc: [place] Specimen: [id number] Received: 12/09/17 - 141 Spec Type: ECC TISSUES TISSUES: Endocervical COMMENT Immunohistochemistry ([id number]) for surrogate HPV marker (p16) supports the above diagnosis. GROSS DESCRIPTION Received in fixative is one container labeled with the patient's name and designated ECC. The specimen consists of multiple fragments of hemorrhagic soft tissue mixed with mucoid tissue that in aggregate measure 1.5 x 1 x 0.1 cm. The specimen is totally submitted in one cassette. 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 MICROSCOPIC DIAGNOSIS Endocervical curettings: Detached and unoriented fragments of ectocervical epithelium with focal changes suspicious mild dysplasia. Fragments of benign endocervical epithelium, blood and mucous. SJ:terrence 12/10/17 Signed Wesley Canseco 12/10/17 <signature on file> Performed By: #### PECC #### [facility] [address] [place], [place], [address] IMMUNOHISTOCHEMISTRY Observed: 12/09/2017 Status: F Source: [place] 12:00 AM [facility] [place] Patient: IMANI HENNING : 1960 (57/F) Acct Num: [id number] Phys: Cecile CHÁVEZ,Summer Unit Num: [id number] Loc: [place] Specimen: [id number] Received: 12/10/17 - 1041 Spec Type: IMMUNO TISSUES TISSUES: Endocervical SPECIMEN INFORMATION: Tissue Source: Endocervical curettings Clinical Info: LGSIL, positive HPV Specimen Number: [id number] CPT code: 85720, 26390 METHODOLOGY: Deparaffinized sections of prefer/formalin-fixed tissue or PAP/DQ stained slides are incubated with monoclonal/polyclonal antibodies/oligonucleotide probes. Localization is made via biotin free immunoperoxidase method. Appropriate controls are performed and reacted as expected. Results on target cell population are indicated in the following table: RESULTS: ANTIBODY / CLONE RESULT P16 (E6H4) positive, focal and patchy Ki-67 (30-9) negative These tests were developed and their performance characteristics determined by [facility]. They may not have been cleared or approved by the U.S. Food and Drug Administration. The FDA has determined that such clearance or approval is not necessary. INTERPRETATION: Endocervical curettings: Detached and unoriented fragments of squamous epithelium with focal changes suspicious for mild dysplasia. SJ:terrence 12/10/17 PHYSICIAN AND INSTITUTION [place] [address] Signed Wesley Canseco 12/10/17 <signature on file> Performed By: #### PIMM #### [facility] [address] [place] [address], [address] ma MAMMOGRAM SCREENING Observed: 12/05/2017 Status: F Source: [facility] W/TOY 8:30 AM FOUNDATION REPOSITORY ORIGINAL FROM: [facility] [address] [place], [place] [address] PROCEDURE FOR: IMANI HENNING [address] [place] [address] Home: PID#: [id number] Exam#: [id number] : 1960 Age: 57 TO: MARIELA PAZ MD [address] [address] #[id number] DIGITAL SCREENING MAMMOGRAM 3D/2D WITH CAD WITH MEDIOLATERAL OBLIQUE CRANIOCAUDAL: 12/05/2017 Comparison is made to exams dated: 10/15/2016 mammogram and 07/05/2014 mammogram - [facility]. There are scattered fibroglandular elements in both breasts. Current study was also evaluated with a Computer Aided Detection (CAD) system. There is a benign density in the right breast. No significant masses, calcifications, or other findings are seen in either breast. There has been no significant interval change. IMPRESSION: BENIGN There is no mammographic evidence of malignancy. A 1 year screening mammogram is recommended. I have personally reviewed the images of the examination and agree with the findings and interpretation. 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 of containers..01 ThinPrep Vial TYPE CODE TESTS RESULT OUT OF REFERENCE UNITS RANGE LAB L7400.0800 . High DIAGN Comment Result Comment: EPITHELIAL CELL ABNORMALITY. LOW-GRADE SQUAMOUS INTRAEPITHELIAL LESION (LGSIL); MILD DYSPLASIA IS PRESENT. LAB L7400.0900 . Normal ADEQ Comment Result Comment: Satisfactory for evaluation. No endocervical component is identified. LAB L7400.1400 . Normal PERFORM Comment Result Comment: Jackie Monson, Vocal Performer (ASCP) LAB L7400.1700 . Normal SIGN Comment Result Comment: Wilda Grimes MD, Pathologist LAB L7400.1720 . Normal Path prov. Comment ICD9 Result Comment: R87.612 LAB L7400.2575 . Normal TEST METHOD Comment Result Comment: This liquid based ThinPrep(R) pap test was screened with the use of an image guided system. LAB L7400.2600 . Normal . COMM LAB L7400.2700 . Normal PAPSMR Comment Result Comment: The Pap smear is a screening test designed to aid in the detection of premalignant and malignant conditions of the uterine cervix. It is not a diagnostic procedure and should not be used as the sole means of detecting cervical cancer. Both false-positive and false-negative reports do occur. LAB L7400.2760 Negative High HPV APTIMA, HR Positive Result Comment: This test detects fourteen high-risk HPV types (16/18/31/33/35/39/45/ 51/52/56/58/59/66/68) without differentiation. Performed at: [facility] - [facility] [employer] [address] [place] [id number] Weave Room Supervisor: Te Olivia MD, Phone: [phone] Performed at: [facility] Lab[address] [id number] Weave Room Supervisor: Verenice Sheffield MD, Phone: [phone] Performed at: - [facility] [id number] Weave Room Supervisor: Verenice Sheffield MD, Phone: [phone] Performed By: #### L7400.0280 #### [facility] (refer to report for specific site) refer to report for address and phone number ALLERGIES ALLERGIES DATE TYPE / CODE NAME / CODE REACTION SEVERITY SOURCE 01/09/2018 Drug No Known Unknown [facility] Allergy/4160 Allergies/F00 [facility] 13062(SNOMED 5036428(RXNOR Repository CT) M) ENCOUNTERS ENCOUNTERS ADMIT/DISCHARGE ACCOUNT NUMBER ADMITTING ENCOUNTER LOCATION SOURCE CLASS 07/23/2018 [id number] Ambulatory [facility] ding:OPUS Repository 07/21/2018 [id number] Ambulatory [facility] Hospital ding:LABSPEC Repository 07/03/2018 [id number] [address] [place] [address] EDRoom: 2A System 444Bed: Repository [id number] 02/26/2018/02/27/20 [id number] Ambulatory BMSBuilding: [place] 18 BMS.Replaced by [facility] Repository 02/19/2018 [id number] Ambulatory [facility] ding:OPUS Repository 02/19/2018 [id number] Ambulatory BMSBuilding: [place] BMS.CF.Replaced by [facility] Repository 01/30/2018/01/31/20 [id number] Ambulatory [address] ding:SDC Repository 01/29/2018 [id number] Ambulatory BMSBuilding: [place] [facility] Repository 01/16/2018 [id number] Ambulatory [facility] Hospital ding:OPUS Repository 01/01/2018/01/02/20 [id number] Ambulatory BMSBuilding: [place] 18 BMS.Replaced by [facility] Repository 12/26/2017 [id number] Ambulatory BMSBuilding: [place] BMS.Replaced by [facility] Repository 12/26/2017/12/27/19 [id number] Ambulatory BMSBuilding: [place] 18 BMS.Replaced by [facility] Repository 12/09/2017 [id number] Ambulatory [facility] ding:LABSPEC Repository 12/09/2017 [id number] Ambulatory [facility] Hospital ding:WOBLAB Repository 12/05/2017/12/06/19 [id number] Ambulatory [address] ding:RAD Foundation Repository 11/01/2017 [id number] Ambulatory [facility] ding:LABSPEC Repository PAYERS PAYERS ENCOUNTER GUARANTOR PAYER SUBSCRIBER SOURCE 07/23/2018 IMANI Beal Primary Insurance:[facility] IMANI Hallman [id number] [facility] PLANUniversal Health Services BLAIRDOB: [facility] Number: [id number] [facility], [id number] Repository [place] [address]Uem: Date:1955-78-56EZ [address] [place] [address] () [address]IZ: 07/23/2018 Secondary NOT GIVENUNK [place] Insurance:SELF PAY [facility]: Effective Repository Date:2018-07-17 07/21/2018 IMANI E Primary Insurance:[facility] IMANI E [place] [id number] COMMUNITY PLANPolicy BLAIRDOB: Community [address] Number: [id number] Memorial Medical Center [facility], [id number] Repository [place] [address]Iys: Date:6236-42-40NE [address] [place] [address] () [address]IN: 07/21/2018 Secondary NOT GIVENUNK [place] Insurance:SELF PAY [facility] Number: Effective Repository Date:2018-07-21 07/03/2018 Imani E Primary Imani E [facility] BlairDOB: Insurance[facility] System [id number] [facility] [id number] Repository [address] Number: Effective [address] [place] Date: [address]Cxr: () 02/26/2018 IMANI E Primary Insurance:[facility] IMANI E [place] [id number] COMMUNITY PLANPolicy BLAIRDOB: Community [address] Number: [id number] Memorial Medical Center [facility], [id number] Repository [place] [address]Btb: Date:6805-89-53JM [address] [place] [address] () [address]CA: 02/26/2018 Secondary NOT GIVENUNK [place] Insurance:SELF PAY [facility] Number: Effective Repository Date:2018-02-26 02/19/2018 IMANI E Primary Insurance:[facility] IMANI E [place] [id number] COMMUNITY PLANPolicy BLAIRDOB: Community [address] Number: [id number] Memorial Medical Center [facility], [id number] Repository [place] [address]Cxu: Date:0325-18-76RI [address] [place] [address] () [address]BH: 02/19/2018 Secondary NOT GIVENUNK [place] Insurance:SELF PAY [facility] Number: Effective Repository Date:2018-02-12 02/19/2018 IMANI E Primary Insurance:[employer] IMANI E [place] [id number] COMMUNITY PLANPolicy BLAIRDOB: Community [address] Number: [id number] Memorial Medical Center [facility], [id number] Repository [place] [address]Has: Date:1867-95-27CU [address] [place] [address] () [address]EC: 02/19/2018 Secondary NOT GIVENUNK [place] Insurance:SELF PAY [facility] Number: Effective Repository Date:2018-02-19 01/30/2018 IMANI E Primary Insurance:[employer] IMANI E [place] [id number] COMMUNITY PLANPolicy BLAIRDOB: Community [address] Number: [id number] Memorial Medical Center [facility], [id number] Repository [place] [address]Zkp: Date:9831-19-77ZU [address] [place] [address] () [address]PJ: 01/30/2018 Secondary NOT GIVENUNK [place] Insurance:SELF PAY [facility] Number: Effective Repository Date:2017-12-19 01/29/2018 IMANI E Primary Insurance:[employer] IMANI E [place] [id number] COMMUNITY PLANPolicy BLAIRDOB: Community [address] Number: [id number] [facility], [id number] Repository [place] [address]Aor: Date:6426-50-80CU [address] [place] [address] () [address]EW: 01/29/2018 Secondary NOT GIVENUNK [place] Insurance:SELF PAY [facility] Number: Effective Repository Date:2018-01-29 01/16/2018 IMANI E Primary Insurance:[employer] IMANI E [place] [id number] COMMUNITY PLANPolicy BLAIRDOB: Community [address] Number: [id number] Memorial Medical Center [facility], [id number] Repository [place] [address]Jrj: Date:7134-90-32II [address] [place] [address] () [address]WU: 01/16/2018 Secondary NOT GIVENUNK [place] Insurance:SELF PAY [facility] Number: Effective Repository Date:2018-01-01 01/01/2018 IMANI E Primary Insurance:[facility] IMANI E [place] [id number] COMMUNITY PLANPolicy BLAIRDOB: Community [address] Number: [id number] Memorial Medical Center [facility], [id number] Repository [place] [address]Qcm: Date:1537-41-85CT [address] [place] [address] () [address]KJ: 01/01/2018 Secondary NOT GIVENUNK [place] Insurance:SELF PAY [facility] Number: Effective Repository Date:2018-01-01 12/26/2017 Imani E Primary Insurance:[facility] Imani E [place] [id number] COMMUNITY PLANPolicy BlairDOB: Community [address] Number: [id number] Harbor Hospital, [id number] Repository [place] [address]Zzn: Date:6550-28-03KP [address] [place] [address] () [address]KC: 12/26/2017 Secondary NOT GIVENUNK [place] Insurance:SELF PAY [facility] Number: Effective Repository Date:2017-12-24 12/26/2017 IMANI E Primary Insurance:[facility] IMANI E [place] [id number] COMMUNITY PLANPolicy BLAIRDOB: Community [address] Number: [id number] Memorial Medical Center [facility], [id number] Repository [place] [address]Lrx: Date:3823-18-10MQ [address] [place] [address] () [address]SD: 12/26/2017 Secondary NOT GIVENUNK [place] Insurance:SELF PAY [facility] Number: Effective Repository Date:2017-12-25 12/09/2017 Imani E Primary Insurance:[facility] Imani E [place] [id number] COMMUNITY PLANPolicy BlairDOB: Community [address] Number: [id number] Harbor Hospital, [id number] Repository [place] [address]Cjj: Date:0436-51-28EZ [address] [place] [address] () 395[address]YN: 12/09/2017 Secondary NOT GIVENUNK [place] Insurance:SELF PAY [facility] Number: Effective Repository Date:2017-12-09 12/09/2017 Imani E Primary Insurance:[facility] Imani E [place] [id number] COMMUNITY PLANPolicy BlairDOB: [facility] [address] Number: [id number] Harbor Hospital, [id number] Repository [place] [address]Psz: Date:4604-82-49BG [address] [place] [address] () [address]HC: 12/09/2017 Secondary NOT GIVENUNK [place] Insurance:SELF PAY [facility] Number: Effective Repository Date:2017-12-09 12/05/2017 IMANI E Primary IMANI Lian [facility] BLAIRDOB: Insurance:[facility] BLAIRDOB: [facility] [id number] [facility] PLAPolicy [id number] Repository [address] Number: [address] [facility] [id number] [place] Date:2017-12-02 [address]Jdk: [phone]~JUVENCIO.TON [id number] [phone] [email or web address]@Lisa Name:[address] ()Tel: (000) : ([phone]) [address] [place] [address] 000-0000 () [phone]: [phone] () [phone] () 11/01/2017 Imani E Primary Insurance:[facility] Imani E [place] [id number] COMMUNITY PLANPolicy BlairDOB: Community [address] Number: [id number] [facility], [id number] Repository [place] [address]Qog: Date:7365-93-48JV [address] [place] [address] () [address]SZ: 11/01/2017 Secondary NOT GIVENMILLA [place] Insurance:SELF PAY [facility] Number: Effective Repository Date:2017-11-01
== END ==
PROVIDERS: Family Provider Nurse Practitioner Family; PCP Nurse Practitioner Family; Referring Provider Obstetrics & Gynecology; Visit Provider Obstetrics & Gynecology
DX: N92.0 Excessive and frequent menstruation with regular cycle (principal)
CPT/HCPCS: 88305

== ENCOUNTER → 2018-07-23 09:07 | Outpatient (CLI) | payer MEDICAID, SELFPAY ==
--- NOTE | 2018-07-23 09:10 | BI_ITS ---
MAMMOGRAPHY - UNILATERAL DIAGNOSTIC: RIGHT BREAST REASON FOR EXAM: Female, 58 years old. Six-month follow-up for right breast biopsy PERTINENT HISTORY: Non-contributory. TECHNIQUE: Digital unilateral breast mary jane (3D mammographic acquisition) in the CC and MLO projections. 2-D mediolateral oblique (MLO) and craniocaudad (CC) views of both breasts were obtained. CAD: Full Field Digital Mammography with Computer Added Detection was performed. COMPARISON: None. FINDINGS: Breast Composition: There are scattered areas of fibroglandular density. A tissue clip marker is seen within a 7.5 mm nodular density in the inferior medial aspect of the right renal. This corresponds to the mammographic findings. No other significant abnormalities are identified. BI/DIAG MAMM W/CAD, UNILAT IMPRESSION: Tissue clip marker seen within the nodular density along the inferior medial subareolar region. ASSESSMENT CATEGORY: BIRADS Category 2: Benign. A letter regarding these results will be sent to the patient by the facility within 30 days. Approximately 10% of breast cancers are not detected by mammography. A normal mammogram should not delay biopsy of a clinically suspicious abnormality. Electronically Signed: Michel Kohler MD at 11:10 EST Tel [phone], Service support ,
--- NOTE | 2018-07-23 10:01 | US_ITS ---
STUDY: ULTRASOUND BREAST - RIGHT REASON FOR EXAM: Female, 58 years old. Six-month follow-up following right breast biopsy. TECHNIQUE: Axial and longitudinal images of the RIGHT breast were performed with a high resolution ultrasound transducer. COMPARISON: Comparison is made with prior ultrasound the right breast dated February 19, 2018. FINDINGS: RIGHT Breast: A tissue clip marker is seen at the 3:00 position in the breast at 4 cm from nipple. There is evidence of an 8 mm x 7 mm x 7 mm hypoechoic nodule. This may represent postbiopsy hematoma. US/Breast Limited Unilateral IMPRESSION: A tissue clip marker is seen within the hypoechoic nodule at the 3:00 position breast for summaries from nipple as described. This most likely represent post biopsy hematoma and changes. ASSESSMENT CATEGORY: BIRADS Category 2: Benign. A letter regarding these results will be sent to the patient by the facility within 30 days. Electronically Signed: Michel Kohler MD at 11:08 EST Tel [phone], Service support ,
--- OUTSIDE RECORDS SUMMARY | 2018-10-24 10:08 | XMS RPT_ITS ---
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 Collected: 11/01/2017 Status: F Source: TOLAR 9:15 AM REPOSITORY Order Comment: CYTOLOGY INFORMATION: - CLINICAL INFORMATION: - DATE LMP/MENOPAUSE: 11618 LMP - COLLECTION VIAL: Thin Prep Vial - RN RECOVERY SOURCE: CERVICAL/ENDOCERVICAL - COLLECTION TECHNIQUE: BRUSH/SPATULA Specimen Comment: [id number] Specimen Comment: No. of containers..01 ThinPrep Vial TYPE CODE TESTS RESULT OUT OF REFERENCE UNITS RANGE LAB L7400.0800 . High DIAGN Comment Result Comment: EPITHELIAL CELL ABNORMALITY. LOW-GRADE SQUAMOUS INTRAEPITHELIAL LESION (LGSIL); MILD DYSPLASIA IS PRESENT. LAB L7400.0900 . Normal ADEQ Comment Result Comment: Satisfactory for evaluation. No endocervical component is identified. LAB L7400.1400 . Normal PERFORM Comment Result Comment: Jackie Monson, In Home Tutor (ASCP) LAB L7400.1700 . Normal SIGN Comment [...] types (16/18/31/33/35/39/45/ 51/52/56/58/59/66/68) without differentiation. Performed at: [facility] - [facility] [address] [place] [id number] Research Nutritionist: Te Olivia MD, Phone: [phone] Performed at: [facility] Lab[address] [id number] Research Nutritionist: Verenice Sheffield MD, Phone: [phone] Performed at: - [facility] [id number] Research Nutritionist: Verenice Sheffield MD, Phone: [phone] Performed By: #### L7400.0280 #### [facility] (refer to report for specific site) refer to report for address and phone number ALLERGIES ALLERGIES DATE TYPE / CODE NAME / CODE REACTION SEVERITY SOURCE 01/09/2018 Drug No Known Unknown [facility] Allergy/4160 Allergies/F00 [facility] [address](SNOMED [id number](RXNOR Repository CT) M) ENCOUNTERS ENCOUNTERS ADMIT/DISCHARGE ACCOUNT NUMBER ADMITTING ENCOUNTER LOCATION SOURCE CLASS 07/23/2018 [id number] Ambulatory [facility] ding:OPUS Repository 07/21/2018 [id number] Ambulatory [facility] ding:LABSPEC Repository 07/03/2018 [id number] Emergency [address]in[address] [place] [address] EDRoom: 2A System 444Bed: Repository [id number] 02/26/2018/02/27/20 [id number] Ambulatory BMSBuilding: [place] 18 BMS[facility] Repository 02/19/2018 [id number] Ambulatory [facility] ding:OPUS Repository 02/19/2018 [id number] Ambulatory BMSBuilding: [place] BMS.CF.[facility] Repository 01/30/2018/01/31/20 [id number] Ambulatory [address] ding:SDC Repository 01/29/2018 [id number] Ambulatory BMSBuilding: [place] [facility] Repository 01/16/2018 [id number] Ambulatory [facility] ding:OPUS Repository 01/01/2018/01/02/20 [id number] Ambulatory BMSBuilding: [place] 18 BMS.[facility] Repository 12/26/2017 [id number] Ambulatory BMSBuilding: [place] BMS[facility] Repository 12/26/2017/12/27/19 [id number] Ambulatory BMSBuilding: [place] 18 BMS[facility] Repository 12/09/2017 [id number] Ambulatory [facility] ding:LABSPEC Repository 12/09/2017 [id number] Ambulatory [facility] ding:WOBLAB Repository 12/05/2017/12/06/19 [id number] Ambulatory [address] ding:[facility] Foundation Repository 11/01/2017 [id number] Ambulatory [facility] ding:LABSPEC Repository PAYERS PAYERS ENCOUNTER GUARANTOR PAYER SUBSCRIBER SOURCE 07/23/2018 IMANI Beal Primary Insurance:[facility] IMANI Hallman [id number] [facility]AN[facility] [place] BLAIRDOB: [facility] Number: [id number][facility] of [place], [id number] Repository [place] [address]Wxn: Date:7317-66-89LC [address] [place] [address] () [address]WV: 07/23/2018 Secondary NOT GIVENUNK [place] Insurance:SELF PAY [facility] Number: Effective Repository Date:2018-07-17 07/21/2018 IMANI E Primary Insurance:[facility] IMANI E [place] [id number] COMMUNITY PLANPolicy BLAIRDOB: Community [address] Number: [id number]'s Hospital of [place], [id number] Repository [place] [address]Ipl: Date:0685-17-43ZT [address] [place] [address] () [address]RO: 07/21/2018 Secondary NOT GIVENUNK [place] Insurance:SELF PAY [facility] Number: Effective Repository Date:2018-07-21 07/03/2018 Imani E Primary Imani E [facility] BlairDOB: [facility] [id number] [facility] [id number] Repository [address] Number: Effective [address] [place] Date: [address]Vxm: () 02/26/2018 IMANI E Primary Insurance:[facility] IMANI E [place] [id number] COMMUNITY PLANPolicy BLAIRDOB: Community [address] Number: [id number]'s Hospital of [place], [id number] Repository [place] [address]Vjw: Date:3536-76-97YS [address] [place] [address] () [address]SP: 02/26/2018 Secondary NOT GIVENUNK [place] Insurance:SELF PAY [facility] Number: Effective Repository Date:2018-02-26 02/19/2018 IMANI E Primary Insurance:[facility] IMANI E [place] [id number] COMMUNITY PLANPolicy BLAIRDOB: Community [address] Number: [id number]'s Hospital of [place], [id number] Repository [place] [address]Jwp: Date:2952-95-04AV [address] [place] [address] () [address]ZP: 02/19/2018 Secondary NOT GIVENUNK [place] Insurance:SELF PAY [facility] Number: Effective Repository Date:2018-02-12 02/19/2018 IMANI E Primary Insurance:[employer] IMANI E [place] [id number] COMMUNITY PLANPolicy BLAIRDOB: Community [address] Number: [id number]'s Hospital of [place], [id number] Repository [place] [address]Zmu: Date:4775-17-69ZZ [address] [place] [address] () [address]VH: 02/19/2018 Secondary NOT GIVENUNK [place] Insurance:SELF PAY [facility] Number: Effective Repository Date:2018-02-19 01/30/2018 IMANI E Primary Insurance:[employer] IMANI E [place] [id number] COMMUNITY PLANPolicy BLAIRDOB: Community [address] Number: [id number]'s Hospital of [place], [id number] Repository [place] [address]Ljt: Date:3957-47-24CF [address] [place] [address] () [address]UB: 01/30/2018 Secondary NOT GIVENUNK [place] Insurance:SELF PAY [facility] Number: Effective Repository Date:2017-12-19 01/29/2018 IMANI E Primary Insurance:[employer] IMANI E [place] [id number] COMMUNITY PLANPolicy BLAIRDOB: Community [address] Number: [id number]'s Hospital of [place], [id number] Repository [place] [address]Zjp: Date:0219-59-40GU [address] [place] [address] () [address]NP: 01/29/2018 Secondary NOT GIVENUNK [place] Insurance:SELF PAY [facility] Number: Effective Repository Date:2018-01-29 01/16/2018 IMANI E Primary Insurance:[employer] IMANI E [place] [id number] COMMUNITY PLANPolicy BLAIRDOB: Community [address] Number: [id number]'s Hospital of [place], [id number] Repository [place] [address]Yol: Date:9081-22-50YP [address] [place] [address] () [address]KL: 01/16/2018 Secondary NOT GIVENUNK [place] Insurance:SELF PAY [facility] Number: Effective Repository Date:2018-01-01 01/01/2018 IMANI E Primary Insurance:[facility] IMANI E [place] [id number] COMMUNITY PLANPolicy BLAIRDOB: Community [address] Number: [id number]'s Hospital of [place], [id number] Repository [place] [address]Miv: Date:9029-41-46LN [address] [place] [address] () [address]SY: 01/01/2018 Secondary NOT GIVENUNK [place] Insurance:SELF PAY [facility] Number: Effective Repository Date:2018-01-01 12/26/2017 Imani E Primary Insurance:[facility] Imani E [place] [id number] COMMUNITY PLANPolicy BlairDOB: Community [address] Number: [id number] Zion campus, [id number] Repository [place] [address]Haw: Date:3674-97-16NX [address] [place] [address] () [address]HS: 12/26/2017 Secondary NOT GIVENUNK [place] Insurance:SELF PAY [facility] Number: Effective Repository Date:2017-12-24 12/26/2017 IMANI E Primary Insurance:[facility] IMANI E [place] [id number] COMMUNITY PLANPolicy BLAIRDOB: Community [address] Number: [id number]'s Hospital of [place], [id number] Repository [place] [address]Bxx: Date:1359-07-65GO [address] [place] [address] () [address]WZ: 12/26/2017 Secondary NOT GIVENUNK [place] Insurance:SELF PAY [facility] Number: Effective Repository Date:2017-12-25 12/09/2017 Imani E Primary Insurance:[facility] Imani E [place] [id number] COMMUNITY PLANPolicy BlairDOB: Community [address] Number: [id number] Zion campus, [id number] Repository [place] [address]Xzj: Date:5415-17-99FT [address] [place] [address] () [address]TA: 12/09/2017 Secondary NOT GIVENUNK [place] Insurance:SELF PAY [facility] Number: Effective Repository Date:2017-12-09 12/09/2017 Imani E Primary Insurance:[facility] Imani E [place] [id number] COMMUNITY PLANPolicy BlairDOB: [facility] [address] Number: [id number] Zion campus, [id number] Repository [place] [address]Whu: Date:4794-82-82QL [address] [place] [address] () [address]MA: 12/09/2017 Secondary NOT GIVENUNK [place] Insurance:SELF PAY [facility] Number: Effective Repository Date:2017-12-09 12/05/2017 IMANI E Primary IMANI Lian [facility] BLAIRDOB: Insurance:[facility] BLAIRDOB: [facility] [id number] [facility] PLAPolicy [id number] Number: [address] [facility] [id number] [place] Date:2017-12-02 [address]Mzr: [phone]~JUVENCIO.TON [id number] [phone] [email or web address] Name:[address] ()Tel: (000) : ([phone]) [address] [place] [address] [phone] () [phone]: [phone] () [phone] () 11/01/2017 Imani E Primary Insurance:[facility] Imani E [place] [id number] COMMUNITY PLANPolicy BlairDOB: Community [address]: [id number] Memorial Hospital Dwain, [id number] Repository [place] [address]Rtm: Date:8592-60-51UY [address] [place] [address] () [address]HR: 11/01/2017 Secondary NOT GIVENMILLA Hallman Insurance:SELF PAY [facility] Number: Effective Repository Date:2017-11-01
== END ==
PROVIDERS: Family Provider Nurse Practitioner Family; PCP Nurse Practitioner Family; Referring Provider Nurse Practitioner Family; Visit Provider Nurse Practitioner Family
DX: R92.8 Other abnormal and inconclusive findings on diagnostic imaging of breast (principal)
CPT/HCPCS: 76642; 77061; 77065; G0279

== ENCOUNTER → 2018-10-17 16:09 | Outpatient (CLI) | payer MEDICAID, SELFPAY | PROVIDERS: Family Provider Nurse Practitioner Family; PCP Nurse Practitioner Family; Referring Provider Obstetrics & Gynecology; Visit Provider Obstetrics & Gynecology | DX: R30.0 Dysuria (principal) | CPT/HCPCS: 87086; 87088 ==

== ENCOUNTER → 2018-11-03 11:17 | Outpatient (CLI) | payer MEDICAID, SELFPAY ==
[2018-11-06 14:14] LABS: HPV APTIMA, High Risk Negative (Negative)
== END ==
PROVIDERS: Family Provider Nurse Practitioner Family; PCP Nurse Practitioner Family; Referring Provider Obstetrics & Gynecology; Visit Provider Obstetrics & Gynecology
DX: Z12.4 Encounter for screening for malignant neoplasm of cervix (principal)
CPT/HCPCS: 87624; 88175; G0145

== ENCOUNTER → 2019-02-11 06:54 | Outpatient (CLI) | payer MEDICAID, SELFPAY ==
--- NOTE | 2019-02-11 06:58 | BI_ITS ---
MAMMOGRAPHY - BILATERAL SCREENING REASON FOR EXAM: Female, 58 years old. Routine annual screening examination. PERTINENT HISTORY: Non-contributory. Prior ultrasound-guided right breast biopsy. TECHNIQUE: Digital bilateral breast toy (3D mammographic acquisition) in the CC and MLO projections. 2-D mediolateral oblique (MLO) and craniocaudad (CC) views of both breasts were obtained. CAD: Full Field Digital Mammography with Computer Added Detection was performed. COMPARISON: Comparison is made with prior examination dated December 05, 2017. Comparison is also made with prior right mammogram dated July 23, 2018. FINDINGS: Breast Composition: There are scattered areas of fibroglandular density. There are no dominant masses or suspicious calcifications. A tissue clip marker is seen in the 7.9 mm x 6.6 mm nodule in the inferior medial subareolar region. No other significant abnormalities are identified. There has been no significant change since the prior study. BI/SCREEN MAMM (CAD) W/TOY BILAT IMPRESSION: Stable bilateral screening mammogram. Yearly follow-up mammogram recommended. (A) ASSESSMENT CATEGORY: BIRADS Category 2: Benign. A letter regarding these results will be sent to the patient by the facility within 30 days. Approximately 10% of breast cancers are not detected by mammography. A normal mammogram should not delay biopsy of a clinically suspicious abnormality. [id number] Electronically Signed: Michel Kohler, at 8:56 EDT , Service support ,
== END ==
PROVIDERS: Family Provider Nurse Practitioner Family; PCP Nurse Practitioner Family; Referring Provider Nurse Practitioner Family; Visit Provider Nurse Practitioner Family
DX: Z12.31 Encounter for screening mammogram for malignant neoplasm of breast (principal)
CPT/HCPCS: 77063; 77067

== ENCOUNTER → 2019-08-24 09:05 | Outpatient (CLI) | payer MEDICAID, SELFPAY | PROVIDERS: Family Provider Nurse Practitioner Family; Referring Provider Nurse Practitioner Family; Visit Provider Nurse Practitioner Family | DX: Z00.00 Encounter for general adult medical examination without abnormal findings (principal) ==

== ENCOUNTER → 2020-02-16 07:03 | Outpatient (CLI) | payer MEDICAID, SELFPAY ==
--- NOTE | 2020-02-16 07:07 | BI_ITS ---
MAMMOGRAPHY - BILATERAL SCREENING REASON FOR EXAM: Female, 59 years old. Routine annual screening examination. PERTINENT HISTORY: Non-contributory. Prior right ultrasound-guided breast biopsy. TECHNIQUE: Digital bilateral breast toy (3D mammographic acquisition) in the CC and MLO projections. 2-D mediolateral oblique (MLO) and craniocaudad (CC) views of both breasts were obtained. CAD: Full Field Digital Mammography with Computer Added Detection was performed. COMPARISON: Comparison is made with prior study dated February 11, 2019 and July 23, 2018. FINDINGS: Breast Composition: There are scattered areas of fibroglandular density. There are no dominant masses or suspicious calcifications. Once again, a tissue clip marker is seen within a 6 mm nodule in the inferior medial subareolar region of the right breast. The nodule has further decreased in size as compared to prior study. No other significant abnormalities are identified. There has been no significant change since the prior study. BI/SCREEN MAMM (CAD) W/TOY BILAT IMPRESSION: Stable bilateral screening mammogram. Yearly follow-up mammogram recommended. (A) ASSESSMENT CATEGORY: BIRADS Category 2: Benign. A letter regarding these results will be sent to the patient by the facility within 30 days. Approximately 10% of breast cancers are not detected by mammography. A normal mammogram should not delay biopsy of a clinically suspicious abnormality. [id number] Electronically Signed: Michel Kohler, at 9:15 EDT , Service support ,
== END ==
PROVIDERS: Referring Provider Obstetrics & Gynecology; Visit Provider Obstetrics & Gynecology
DX: Z12.31 Encounter for screening mammogram for malignant neoplasm of breast (principal)
CPT/HCPCS: 77063; 77067

== ENCOUNTER → 2021-06-28 06:59 | Outpatient (CLI) | payer MEDICAID, SELFPAY ==
--- NOTE | 2021-06-28 07:02 | BI_ITS ---
MAMMOGRAPHY - BILATERAL SCREENING 3-D TOMOSYNTHESIS REASON FOR EXAM: Female, 61 years old. Routine screening PERTINENT HISTORY: Previous biopsies. TECHNIQUE: 2-D mammograms and 3-D Tomosynthesis of the breast (s) were performed. CAD was performed. COMPARISON: 02/16/2020 FINDINGS: The breast composition is almost entirely fat. Scattered benign calcifications are seen. No dense spiculated masses or suspicious microcalcifications are identified. No architectural distortion is identified. There is no skin thickening or retraction. There has been no significant change since the prior study. BI/SCRN MAMM (CAD)W/TOY BILAT IMPRESSION: No mammographic signs of malignancy. Routine yearly mammograms recommended. ASSESSMENT CATEGORY: BIRADS Category 1: Negative. A letter regarding these results will be sent to the patient by the facility within 30 days. FOLLOW UP RECOMMENDATION: Yearly follow up mammogram recommended. (A) Approximately 10% of breast cancers are not detected by mammography. A normal mammogram should not delay biopsy of a clinically suspicious abnormality. Electronically Signed: Taurus Cabral MD at 10:24 EST , Service support ,
== END ==
PROVIDERS: Referring Provider Nurse Practitioner Family; Visit Provider Nurse Practitioner Family
DX: Z12.31 Encounter for screening mammogram for malignant neoplasm of breast (principal)
CPT/HCPCS: 77063; 77067

== ENCOUNTER 2021-08-29 14:38 | Outpatient (CLI) | payer MEDICAID, SELFPAY ==
--- NOTE | 2021-08-29 15:30 | US_ITS ---
STUDY: ULTRASOUND BREAST - RIGHT REASON FOR EXAM: Female, 61 years old. Right periareolar pain. TECHNIQUE: Axial and longitudinal images of the RIGHT breast were performed with a high resolution ultrasound transducer. # OF IMAGES: 13 COMPARISON: Comparison is made with prior sonogram of the right breast dated 07/23/2018. FINDINGS: RIGHT Breast: The periareolar region was examined with ultrasound. No sonographic abnormality is seen. US/Breast Limited Unilateral IMPRESSION: Unremarkable targeted ultrasound of the periareolar region. ASSESSMENT CATEGORY: BIRADS Category 1: Negative. A letter regarding these results will be sent to the patient by the facility within 30 days. Electronically Signed: Michel Kohler MD at 9:25 EST ,
[2021-08-29 18:18] LABS: ALB/GLOB Ratio 0.7 RATIO (0.9-2.4); AST(SGOT) 24 U/L (15-37); Alanine Aminotransfer ALT/SGPT 24 U/L (13-56); Albumin, Serum 3.5 g/dL (3.2-5.0); Alkaline Phosphatase 97 U/L (45-117); Anion Gap 6 (5-15); BUN 9 mg/dL (7-18); BUN/Creat Ratio 13.3 RATIO (10-20); Calcium,Total 9.5 mg/dL (8.5-10.1); Chloride 108 mmol/L (98-107); Creatinine, Serum 0.68 mg/dL (0.55-1.02); EST Glomerular Filtration Rate 94 mL/min (>60); Est Glom Filt Rate - Afr Amer 113 mL/min (>60); Estradiol 25.8 pg/mL; Globulin 4.9 g/dL (2.2-4.2); Glucose 111 mg/dL (74-106); Potassium 3.7 mmol/L (3.5-5.1); Prolactin 6.3 ng/mL; Protein, Total 8.4 g/dL (6.4-8.2); Sodium Level 141 mmol/L (136-145); Thyroid Stim Hormone (TSH) 4.19 uIU/mL (0.358-3.74)
[2021-09-04 18:08] LABS: Testosterone, % Free 2.71 % (0.50-2.80); Testosterone, Free 1.17 ng/dL (0.10-0.85); Testosterone, Total 43 ng/dL (3-67)
[2021-09-04 21:38] LABS: AFP, Tumor Marker 3.9 ng/mL (0.0-8.3)
== END 2021-08-29 23:59 | disposition short-term general hospital (02) ==
LOC: OPUS 14:41
PROVIDERS: PCP Nurse Practitioner Family; Referring Provider Nurse Practitioner Family; Visit Provider Nurse Practitioner Family
DX: N64.4 Mastodynia (principal)
CPT/HCPCS: 84702; 36415; 76642; 80053; 82105; 82670; 84146; 84270; 84402; 84403; 84443

== ENCOUNTER → 2022-08-08 | Outpatient (CLI) | payer MEDICAID, SELFPAY ==
--- NOTE | 2022-08-08 08:39 | BI_ITS ---
MAMMOGRAPHY - BILATERAL SCREENING REASON FOR EXAM: Female, 62 years old. Routine annual screening examination. PERTINENT HISTORY: Non-contributory. TECHNIQUE: Digital bilateral breast toy (3D mammographic acquisition) in the CC and MLO projections. 2-D mediolateral oblique (MLO) and craniocaudad (CC) views of both breasts were obtained. CAD: Full Field Digital Mammography with Computer Added Detection was performed. COMPARISON: Comparison is made with prior study dated 06/28/2021 and 02/16/2020. FINDINGS: Breast Composition: The breasts are almost entirely fatty. There are no dominant masses or suspicious calcifications. No other significant abnormalities are identified. There has been no significant change since the prior study. BI/SCRN MAMM (CAD)W/TOY BILAT IMPRESSION: Stable bilateral screening mammogram. Yearly follow-up mammogram recommended. (A) ASSESSMENT CATEGORY: BIRADS Category 1: Negative. A letter regarding these results will be sent to the patient by the facility within 30 days. Approximately 10% of breast cancers are not detected by mammography. A normal mammogram should not delay biopsy of a clinically suspicious abnormality. [id number] Electronically Signed: Michel Kohler MD at 10:25 EST ,
== END | disposition home or self-care (01) ==
PROVIDERS: PCP Nurse Practitioner Family; Referring Provider Nurse Practitioner Family; Visit Provider Nurse Practitioner Family
DX: Z12.31 Encounter for screening mammogram for malignant neoplasm of breast (principal)
CPT/HCPCS: 77063; 77067

== ENCOUNTER 2023-04-15 05:47 | Day surgery (SDC) | payer MEDICAID, SELFPAY ==
[2023-04-15] VITALS (10 sets, daily range): BP systolic 108–146; BP diastolic 64–93; PULSE 61–72; RESP 12–18; TEMP 35.6–36.5; O2SAT 94–97; BMI 31.1
[2023-04-15] MEDS: Lactated Ringers 1,000 ML 15 ML IV (06:00)
--- NOTE | 2023-04-15 06:59 | PCM.HP.BLA ---
History and Physical Date of Admission: 04/15/23 Intake Vital Signs 04/03/2309:35 Height 5 ft 3 in Weight: 169 lb BMI 29.9 BP 120/78 Blood Pressure Location Rt brachial Position Sitting Respiration 16 Pulse 86 Pulse Source Monitor Pulse Oximetry (%) 99 Intake Visit Reasons: PORT PLACEMENT Allergies No Known Allergies Allergy (Verified 04/03/23 09:37) Medications multivitamin 1 tab PO QAM 12/26/17 [History Confirmed 01/09/18] silver sulfadiazine 1 % topical cream (Silvadene) 1 applic topical PRN PRN skin 12/26/17 [History Confirmed 01/09/18] ibuprofen 600 mg tablet 600 mg PO TID PRN Pain #30 tabs 01/30/18 [Rx] artifi.tears(hypromellose)(PF) 1.7 % eye drops with applicator 1 drp ophthalmic (eye) 4-8XD PRN 04/03/23 [History Confirmed 04/03/23] brimonidine 0.2 % eye drops 1 drp ophthalmic (eye) Q8H 04/03/23 [History Confirmed 04/03/23] cholecalciferol (vitamin D3) 125 mcg (5,000 unit) tablet 125 mcg PO DAILY 04/03/23 [History Confirmed 04/03/23] dexamethasone 4 mg tablet 4 mg PO BID 04/03/23 [History Confirmed 04/03/23] dorzolamide 22.3 mg-timolol 6.8 mg/mL eye drops 1 drp ophthalmic (eye) BID 04/03/23 [History Confirmed 04/03/23] erythromycin 5 mg/gram (0.5 %) eye ointment 0.5 inch ophthalmic (eye) BID 04/03/23 [History Confirmed 04/03/23] gabapentin 300 mg capsule 300 mg PO BID 04/03/23 [History Confirmed 04/03/23] levothyroxine 75 mcg capsule 75 mcg PO DAILY 04/03/23 [History Confirmed 04/03/23] pantoprazole 40 mg tablet,delayed release 40 mg PO DAILY 04/03/23 [History Confirmed 04/03/23] ramipril 10 mg capsule 10 mg PO DAILY 04/03/23 [History Confirmed 04/03/23] rosuvastatin 5 mg tablet 5 mg PO DAILY 04/03/23 [History Confirmed 04/03/23] PFSH Surgical History (Updated 03/04/18 @ 18:[address] 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 Patient has already started treatment. ROS General General: Yes weight change and fatigue; No appetite, colon cancer, breast cancer or weakness HEENT HEENT: Yes eye surgery; No difficulty swallowing, eye injury, swollen glands or hoarseness Endo Endocrine: Yes thyroid disease; No diabetes mellitus, thyroid cancer, Hair loss, heat intolerance or cold intolerance Skin Skin: No rash or changing moles Breast Breast: No left breast lump, right breast lump, nipple discharge, breast pain, abnormal mammogram, abnormal US or breast enlargement Musc Musculoskeletal: Yes back problems; No arthritis, rheumatoid arthritis, gout or joint pain Cardio Cardiovascular: Yes high blood pressure; No murmur, pacemaker, heart disease, atrial fibrillation, heart attack, heart stent, palpitations, shortness of breat with exertion or chest pain Psych Psychiatric: No depression, anxiety or hearing voices Resp Respiratory: No shortness of breath, No sleep apnea, No cough, No COPD, No asthma, No emphysema and No wheezing Gastro Gastrointestinal: No abdominal pain, Yes nausea or vomiting, No diarrhea, Yes constipation, No blood in stool, No acid reflux, No hemorrhoids, No ulcers, No gallbladder problem and No black,tarry stools Ayo Hematologic: No blood thinners, No blood disorders, No bleeding, No anemia and No blood clots Neuro Neurologic: No system reviewed and no additional complaints, except as documented, No as per HPI, No abnormal gait, No abnormal hearing, No abnormal movements, No abnormal speech, No behavioral changes, No burning sensations, No confusion, No convulsions, No disequilibrium, No dizziness, No localized weakness, No frequent falls, No headache(s), No lack of coordination, No loss of vision, No memory loss, No numbness, No other visual disturbances, No radicular pain, No restless legs, No sensory deficit, No syncope, No tingling, No tremor(s), No weakness and No other Exam Const General: cooperative Orientation: alert and oriented x3 HENMT Head: normal to inspection Neck Neck: normal visual inspection and full ROM Chest Chest palpation & inspection: normal inspection of the chest Resp Effort & Inspection: normal respiratory effort Auscultation: clear to auscultation bilaterally Cardio Rate: regular rate Rhythm: regular rhythm GI Inspection: non-distended Palpation: soft and nontender Skin General: no rashes or lesions noted Neuro General: patient alert and patient oriented x3 Extrem General: full ROM Psych Appearance: grossly normal Mental Status: mental status grossly normal Assessment and Plan Assessment and Plan (1) Encounter for adjustment and management of vascular access device: Status: Acute Plan: The patient requires port placement for chemotherapy. I discussed right chest port placement with the patient in detail. I discussed the risks including but not limited to bleeding, infection, pneumothorax, line infection or DVT. Patient understands the risks and is willing to proceed. The patient has her port placement scheduled the day before her next treatment so that the port may be left accessed. Jori Reaves MD Pager: [facility] [address] [place] [address], [address] [place] [address] Office: I have examined the patient and the H&P has been reviewed. There are no clinical changes since date of exam.
[2023-04-15] MEDS: Cefazolin 2 GM in 0.9% Normal Saline (100mL Bag) 100 ML IV (07:25)
[2023-04-15] MEDS: Lidocaine 1% /Epi 1:100 (20ml) 20 ML Vial (07:41)
[2023-04-15] MEDS: Bupivacaine Mpf 0.5% 30 ML VIAL (07:41)
--- NOTE | 2023-04-15 08:10 | RAD_ITS ---
HISTORY: PORT PLACEMENT. TECHNIQUE: XR Chest 1 View. COMPARISON: None. FINDINGS: CARDIOMEDIASTINAL BORDERS: Cardiac silhouette within normal limits in size. Mediastinal contour unremarkable with calcification of the aortic knob. Right chest wall port with catheter tip at the superior cavoatrial junction. LUNGS: Radiographically clear. PLEURA: No pleural effusion or pneumothorax seen. OSSEOUS STRUCTURES: Mild degenerative change. RAD/CXR for Line Placement IMPRESSION: No acute cardiopulmonary process identified. Satisfactory appearance of right chest wall port. Electronically Signed: Traci Metzger MD at 8:32 EDT ,
--- NOTE | 2023-04-15 08:29 | OP.PCM_ITS ---
Report of Operation Date of Procedure: 04/15/23 Pre-Operative Diagnosis: Need vascular access for chemotherapy Post-Operative Diagnosis: Same Surgery/Procedure Performed:: Ultrasound and fluoroscopy guided right chest port placement utilizing right IJ Type of Anesthesia: Local MAC Estimated Blood Loss (mL): 5 Description of Procedure: After obtaining informed consent patient was brought back to the operating room MAC anesthesia was induced and the right chest and neck were prepped in normal sterile fashion. Ultrasound was used to evaluate both IJs and the right IJ was selected. Next, using a needle, the right IJ was accessed and a guidewire was passed on into the superior vena cava under fluoroscopy guidance. A small incision was made over the puncture site and the dilator introducer was placed over the guidewire. Next this was capped and the pocket was made for the port. 1% lidocaine with epinephrine was injected in the proposed port site. An incision was made with scalpel. Electrocautery was used to make a pocket under the skin and subcutaneous tissue. Hemostasis was obtained. Next, the catheter was tunneled up to the neck incision site and placed through the introducer. The peel-away introducer was removed and the position of the catheter was confirmed on fluoroscopy. Next, the catheter was trimmed and attached to the port with the locking device. Interrupted 2-0 Vicryl sutures were used to anchor the port to the chest wall and then the port was placed inside the pocket. The pocket was then flushed with saline and the port irrigated with saline. There was good blood return and the port flushed easily. Next, heparin was injected into the port. The skin was closed with subcutaneous interrupted 3-0 Vicryl sutures. A single 3-0 Vicryl sutures placed under the skin at the neck incision site. Steri-Strips were placed as well as op sites. Patient tolerated procedure well, was taken to PACU in stable condition. Chest x-ray will be obtained. Grafts/Implants Used: 8 [place] [employer]Port Admit VTE Documentation VTE Mechan Device Prophylaxis: SCD's
--- NOTE | 2023-04-15 08:31 | EX.PCM.DISCH ---
Discharge Instructions Procedure Port-A-Cath Diet Discharge Diet: Light diet - advance as tolerated (Pain medication may cause nausea. You should typically eat light foods as you take your pain medication.) Activity Discharge Activity: Return to Normal Activity and May Shower (with your bandage in place in 1-2 days after surgery. DO NOT SHOWER WHEN YOUR PORT IS ACCESSED.) Dressing / Incision Call your doctor if your incision/area has: Continuous Slow Oozing, Sudden Increased Bleeding, Increased Pain/ Swelling, Increased Redness and Foul Smelling Discharge Call your doctor if you observe: Fever of 101 or Higher Remove Dressing in: 2 days Cleanse incision/area with: Soap & Water Follow Up Care Please Follow Up With: Jori Reaves MD When: as needed [phone] Test Results: Test results from this visit will be discussed in further detail at your follow-up appointment, if applicable. Discharge Plan Admission Attending Provider: Jori Reaves Primary Care Provider: David Case NP Instructions Additional Instructions / Restrictions: Ibuprofen and Tylenol for pain Discharge Orders/Prescriptions Prescriptions: No Action pantoprazole 40 mg tablet,delayed release (DR/EC) 40 mg PO DAILY erythromycin 5 mg/gram (0.5 %) ointment 0.5 inch ophthalmic (eye) BID dexamethasone 4 mg tablet 4 mg PO BID brimonidine 0.2 % drops 1 drp ophthalmic (eye) Q8H dorzolamide-timolol 22.3-6.8 mg/mL drops 1 drp ophthalmic (eye) BID ramipril 10 mg capsule 10 mg PO DAILY cholecalciferol (vitamin D3) 125 mcg (5,000 unit) tablet 125 mcg PO .q2week levothyroxine 75 mcg capsule 75 mcg PO DAILY artifi.tears(hypromellose)(PF) 1.7 % drops with applicator 1 drp ophthalmic (eye) 4-8XD PRN (Reason: dry eyes) naproxen 250 mg tablet 250 mg PO BID PRN (Reason: pain) Referrals / Follow Up: David Case NP, [facility] [Primary Care Provider] - Disposition Disposition (needs filled in before D/C Order can be placed): Home, Self Care
== END 2023-04-15 10:15 | disposition home or self-care (01) ==
LOC: SDC 05:52 → AC 05:53
PROVIDERS: PCP Nurse Practitioner Family; Referring Provider Surgery; Visit Provider Surgery
PROC: (CPT 36561; principal; 2023-04-15 07:15)
DX: Z45.2 Encounter for adjustment and management of vascular access device (principal); C76.0 Malignant neoplasm of head, face and neck; I10 Essential (primary) hypertension; E07.9 Disorder of thyroid, unspecified; Z79.899 Other long term (current) drug therapy; Z87.891 Personal history of nicotine dependence
CPT/HCPCS: 36561; 00532; 71045; 77001; J7120; C1788; J2405

== ENCOUNTER 2023-06-11 09:32 | Emergency (ER) | payer MEDICAID, SELFPAY ==
[2023-06-11 09:33] VITALS: BP 193/99; PULSE 65; RESP 18; TEMP 35.8; O2SAT 100; BMI 32.1
--- NOTE | 2023-06-11 09:42 | CT_ITS ---
STUDY: CT BRAIN WITHOUT CONTRAST REASON FOR EXAM: Female, 63 years old. Headache w/ known brain ca RADIATION DOSAGE (If Supplied By Facility): CTDIvol = ( 44.99 ) mGy, DLP = ( 779.24 ) mGycm TECHNIQUE: Transaxial CT imaging of the brain was performed without administration of intravenous contrast material. Individualized dose optimization techniques were used for this CT. COMPARISON: No relevant priors. FINDINGS: Normal soft tissue structures. Focal bony defect is seen in the superior aspect of the right frontal sinus. This may represent a neoplastic process. Normal size ventricles and extra-axial spaces for the patient''s age. Normal white matter tracts of the cerebral hemispheres. Normal basal ganglia and thalami. Normal brainstem. Normal cerebellum. There is no intracranial hemorrhage. There are no findings of an acute ischemic infarction. Partial opacification of the inferior aspect of the right maxillary sinus. Partial opacification of the right ethmoid sinus. Opacification of the right sphenoid sinus as well as the frontal sinuses. CT/Brain/Head without Contrast IMPRESSION: Sinusitis. Focal bony defect along the anterior aspect of the right frontal sinus. A neoplastic process should be ruled out. Electronically Signed: Michel Kohler MD at 10:58 EST ,
--- NOTE | 2023-06-11 09:44 | EX.ED.VIS.HA ---
HPI History of Present Illness Chief Complaint: Headache Informant: patient Onset/Context/Timing Onset: Today Context: Sudden Current Severity: Moderate Maximum Severity: Severe Narrative Narrative: 63-year-old female history of hypertension, hypothyroidism and brain cancer for which she is undergoing chemotherapy. Has not had any surgery as of yet. Awoke this morning at 7 AM due to severe headache behind her right eye. She is not on any blood thinners. She typically does not get severe headaches. Denies any fall or trauma. No fever. Prior similar symptoms: No Recent Illness/Hospitalization: No PFSH PFSH Medical History Anemia Arthritis Back pain Cancer Encounter for chemotherapy management Former smoker History of steroid therapy Hypertension Hypertension Leg cramps Malignant poorly differentiated neuroendocrine tumors Neck abscess Ocular proptosis Post-menopausal Primary cancer of paranasal sinus Substance abuse Thyroid disease Wears dentures Wears glasses Home Medications acetaminophen 325 mg capsule 325 mg PO ONCE PRN 03/15/23 [History Last Taken Unknown] albuterol sulfate 90 mcg/actuation aerosol inhaler 2 puff inhalation Q6H PRN 03/15/23 [History Last Taken Unknown] cetirizine 10 mg tablet (Zyrtec) 10 mg PO DAILY PRN 03/15/23 [History Last Taken Unknown] ketotifen fumarate 0.025 % (0.035 %) eye drops (Zaditor) 1 drp ophthalmic (eye) BID 03/15/23 [History Last Taken Unknown] levetiracetam 500 mg tablet 500 mg PO BID 03/15/23 [History Last Taken Unknown] levothyroxine 75 mcg capsule 75 mcg PO DAILY 03/15/23 [History Last Taken Unknown] meloxicam 15 mg tablet 15 mg PO DAILY 03/15/23 [History Last Taken Unknown] oxycodone 5 mg capsule 5 mg PO Q8H PRN 03/15/23 [History Last Taken Unknown] oxycodone-acetaminophen 5 mg-325 mg tablet (Percocet) 1 tab PO Q8H PRN 03/15/23 [History Last Taken Unknown] ramipril 10 mg capsule 10 mg PO DAILY 03/15/23 [History Last Taken Unknown] rosuvastatin 5 mg tablet 5 mg PO DAILY 03/15/23 [History Last Taken Unknown] sodium chloride 0.65 % nasal spray aerosol (Deep Sea Nasal) 1 spray intranasal ONCE 03/15/23 [History Last Taken Unknown] brimonidine 0.2 % eye drops 1 drp ophthalmic (eye) BID 04/02/23 [History Last Taken Unknown] cholecalciferol (vitamin D3) 1,250 mcg (50,000 unit) capsule 1,250 mcg PO QWEEK 04/02/23 [History Last Taken Unknown] dexamethasone 4 mg tablet 4 mg PO BID 04/02/23 [History Last Taken Unknown] dextran 70-hypromellose eye drops in a dropperette (Artificial Tears (PF) drops in a dropperette) 1 drp ophthalmic (eye) 4-6XD PRN 04/02/23 [History Last Taken Unknown] dorzolamide 22.3 mg-timolol 6.8 mg/mL eye drops 1 drp ophthalmic (eye) BID 04/02/23 [History Last Taken Unknown] erythromycin 5 mg/gram (0.5 %) eye ointment 0.5 inch ophthalmic (eye) BID 04/02/23 [History Last Taken Unknown] gabapentin 300 mg capsule 300 mg PO BID 04/02/23 [History Last Taken Unknown] ondansetron HCl 8 mg tablet 8 mg PO Q8H 04/02/23 [History Last Taken Unknown] pantoprazole 40 mg tablet,delayed release 40 mg PO DAILY 04/02/23 [History Last Taken Unknown] polyethylene glycol 3350 17 gram/dose oral powder (Miralax) 4 g PO DAILY 04/02/23 [History Last Taken Unknown] pantoprazole 40 mg tablet,delayed release 40 mg PO DAILY 04/03/23 [History Last Taken Unknown] artifi.tears(hypromellose)(PF) 1.7 % eye drops with applicator 1 drp ophthalmic (eye) 4-8XD PRN 04/16/23 [History Last Taken Unknown] brimonidine 0.2 % eye drops 1 drp ophthalmic (eye) Q8H 04/16/23 [History Last Taken Unknown] cholecalciferol (vitamin D3) 125 mcg (5,000 unit) capsule 125 mcg PO DAILY 04/16/23 [History Last Taken Unknown] dorzolamide 22.3 mg-timolol 6.8 mg/mL eye drops 1 drp ophthalmic (eye) BID 04/16/23 [History Last Taken Unknown] erythromycin 5 mg/gram (0.5 %) eye ointment 0.5 inch ophthalmic (eye) BID 04/16/23 [History Last Taken Unknown] levetiracetam 500 mg tablet (Keppra) 500 mg PO BID 04/16/23 [History Last Taken Unknown] levothyroxine 75 mcg tablet 75 mcg PO DAILY 04/16/23 [History Last Taken Unknown] lidocaine-prilocaine 2.5 %-2.5 % topical cream 20 g topical ONCE #30 grams 04/16/23 [Rx Last Taken Unknown] naproxen 500 mg tablet 500 mg PO BID 04/16/23 [History Last Taken Unknown] ramipril 10 mg capsule 10 mg PO DAILY 04/16/23 [History Last Taken Unknown] artifi.tears(hypromellose)(PF) 1.7 % eye drops with applicator 1 drp ophthalmic (eye) 4-8XD PRN 05/07/23 [History Last Taken Unknown] brimonidine 0.2 % eye drops 1 drp ophthalmic (eye) Q8H 05/07/23 [History Last Taken Unknown] cholecalciferol (vitamin D3) 125 mcg (5,000 unit) capsule 125 mcg PO Q2W 05/07/23 [History Last Taken Unknown] dorzolamide 22.3 mg-timolol 6.8 mg/mL eye drops 1 drp ophthalmic (eye) BID 05/07/23 [History Last Taken Unknown] erythromycin 5 mg/gram (0.5 %) eye ointment 0.5 inch ophthalmic (eye) BID 05/07/23 [History Last Taken Unknown] levetiracetam 500 mg tablet (Keppra) 500 mg PO BID 05/07/23 [History Last Taken Unknown] levothyroxine 75 mcg capsule 75 mcg PO DAILY 05/07/23 [History Last Taken Unknown] naproxen 250 mg tablet 250 mg PO BID PRN 05/07/23 [History Last Taken Unknown] ondansetron 8 mg disintegrating tablet 8 mg PO Q8H PRN nausea and vomiting #30 tabs 05/07/23 [Rx Last Taken Unknown] ramipril 10 mg capsule 10 mg PO DAILY 05/07/23 [History Last Taken Unknown] amoxicillin 875 mg-potassium clavulanate 125 mg tablet 1 tab PO BID 05/28/23 [History Last Taken Unknown] lidocaine-prilocaine 2.5 %-2.5 % topical cream 1 applic topical ONCE PRN port access 30 days #30 grams 05/30/23 [Rx Last Taken Unknown] Allergy/AdvReac Type Severity Reaction Status Date / Time No Known Allergies Allergy Verified 05/28/23 09:27 Family History Mother Hypertension Diabetes Aunt Hypertension Father Diabetes Mother Hypertension Surgical History Abscess, neck History of hand surgery Hx of hand surgery Social History Smoking Status: Former smoker alcohol intake: current alcohol intake frequency: holidays/special occasions only substance use type: does not use ROS ROS ED ROS Narrative Headache today. No recent illness. Review of Systems ROS Unobtainable: Denies due to encephalopathy Constitutional Constitutional ED: Denies chills or fever(s) Eyes Eyes: Denies blurry vision ENT ENT ED: Denies ear pain Cardiovascular Cardiovascular: Denies chest pain Respiratory/Chest Respiratory/Chest: Denies cough Gastrointestinal Gastrointestinal: Denies abdominal pain Genitourinary Genitourinary ED: Denies dysuria or hematuria Musculoskeletal Musculoskeletal: Denies arthralgias Integumentary Denies abscess Neurologic Neurologic: Reports headache(s) Psychiatric Psychiatric: Denies anxiety Endocrine Endocrinology: Denies polydipsia Hematologic/Lymphatic Hematologic/Lymphatic: Denies easy bleeding, easy bruising or lymphadenopathy Allergic/Immunologic Allergic/Immunologic ED: Denies mouth swelling or tongue swelling EXAM Physical Exam Narrative Exam Narrative: 63-year-old female vital signs are stable afebrile. Her blood pressure is elevated at 193/99. Sitting upright in darkened room. HEENT exam unremarkable. Given dry reactive light. Extra motions are intact. No facial droop. Normal speech. No trauma to her face or scalp. Neck nontender no meningismus. Lungs clear equal symmetrical bilaterally. Heart regular rhythm rate in the 60s. Chest wall nontender. Abdomen soft nontender. Moving all 4 extremities. 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 Dorsi plantarflexion intact. Neurologic exam normal. NIH is 0. Const Vital Signs: 06/11/23 09:33 Temperature 96.4 F L Temperature Source Temporal Pulse Rate 65 Respiratory Rate 18 Blood Pressure 193/99 H Blood Pressure Mean 130 Pulse Ox 100 Oxygen Delivery Method Room Air Positive well nourished and well developed; Negative for obese, cachectic, contractures or unkempt General Appearance ED: well developed and NAD; Negative for unkempt, cachectic, contractures, cyanotic or diaphoretic Nutritional Appearance: Negative for cachectic or obese HEENT Reports normocephalic and moist mucous membranes atraumatic; Negative for trauma, tenderness, temporal artery tenderness or vesicular rash Eyes PERRL and EOMs intact bilaterally General Eye ED: Negative for pale conjunctiva or scleral icterus Neck no lymphadenopathy, supple, no meningeal signs and no JVD General: Negative for tenderness Resp normal respiratory effort and clear to auscultation bilaterally Effort and Inspection: Negative for retractions Auscultation: Negative for rales, rhonchi or wheezes Cardio regular rate, regular rhythm, S1 normal heart sound, S2 normal heart sound and no murmurs Rate: Negative for bradycardia or tachycardic Rhythm: Negative for abnormal rhythm GI non-tender and non-distended Auscultation: normoactive bowel sounds Palpation: soft; Negative for firm or tender Back/Spine no CVA tenderness General Back: Negative for CVA tenderness Cervical Spine: Negative for cervical spine tenderness Thoracic Spine / Upper Back: Negative for thoracic spinal tenderness Lumbar Spine / Lower Back: Negative for lumbar spinal tenderness Extremity normal to inspection and full ROM General Extremety ED: Negative for edema or tenderness General Extremity: Negative for edema Neuro oriented x3 and CN's II-XII intact bilaterally Lucien Coma Scale: document GCS findings Spontaneous Obeys Commands Oriented 15 Sensorium / Orientation: awake, alert, oriented to person, oriented to place and oriented to time; Negative for orientation impaired, lethargic or stuporous Coordination / Balance: [id number] test normal Speech: speech normal Motor Exam: strength 5/5 throughout Psych mental status grossly normal Appearance: Negative for unkempt Attitude: No agitated Mood & Affect: Negative for depressed, anxious or tearful Skin General Skin Exam: elasticity normal Lesions: no lesions Rashes: no rashes MDM MDM MDM Narrative Medical decision making narrative: 63-year-old female known brain tumor complaining of sudden onset of a headache at 7 AM this morning. Neurologic exam normal. Treated with IV morphine and Zofran for pain. CAT scan of the brain be obtained to evaluate the mass for size, potential any bleeding or surrounding edema. Exam patient is doing well at 11:10 AM. We went over her test results and CAT scan reading. Patient is comfortable being discharged home. I did call PET scan and they are unable to reschedule it today. They will reschedule her PET scan for next week. History & Record Review Discussion w/independent historian: Patient Lab Data Attestation: I reviewed the patient's lab results. Lab results narrative: BC shows a white count of 5. H&H 10.1 and 32.4. She has a history of anemia. Platelet count is low at 66,000. Labs: Laboratory Results - last 24 hr 06/11/23 10:00 WBC 5.5 RBC 3.30 L Hgb 10.1 L Hct 32.4 L MCV 98.2 MCH 30.6 MCHC 31.2 L RDW Std Deviation 74.4 H RDW Coeff of Stan 21.4 H Plt Count 66 L MPV 10.9 Differential Comment Radiography Diagnostic Testing: Clinical Impression(s) from Imaging Studies Brain CT 06/11/23 09:42 IMPRESSION: Sinusitis. Focal bony defect along the anterior aspect of the right frontal sinus. A neoplastic process should be ruled out. Electronically Signed: Michel Kohler MD at 10:58 EST , Discharge Plan Triage Chief Complaint: Headache ED Provider: Victorino Guaman Dx/Rx/DC Orders Clinical Impression: Headache, History of sinus cancer Instructions: ED Pain, Acute, Uncertain Cause Prescriptions: No Action acetaminophen 325 mg capsule 325 mg PO ONCE PRN albuterol sulfate 90 mcg/actuation HFA aerosol inhaler 2 puff inhalation Q6H PRN Deep Sea Nasal 0.65 % aerosol,spray 1 spray intranasal ONCE levetiracetam 500 mg tablet 500 mg PO BID levothyroxine 75 mcg capsule 75 mcg PO DAILY meloxicam 15 mg tablet 15 mg PO DAILY oxycodone 5 mg capsule 5 mg PO Q8H PRN oxycodone-acetaminophen [Percocet] 5-325 mg tablet 1 tab PO Q8H PRN ramipril 10 mg capsule 10 mg PO DAILY rosuvastatin 5 mg tablet 5 mg PO DAILY ketotifen fumarate [Zaditor] 0.025 % (0.035 %) drops 1 drp ophthalmic (eye) BID Rx Instructions: administer at least 8 hours apart cetirizine [Zyrtec] 10 mg tablet 10 mg PO DAILY PRN dexamethasone 4 mg tablet 4 mg PO BID Artificial Tears (PF) Dropperette 1 drp ophthalmic (eye) 4-6XD PRN pantoprazole 40 mg tablet,delayed release (DR/EC) 40 mg PO DAILY polyethylene glycol 3350 [Miralax] 17 gram/dose powder 4 g PO DAILY gabapentin 300 mg capsule 300 mg PO BID erythromycin 5 mg/gram (0.5 %) ointment 0.5 inch ophthalmic (eye) BID dorzolamide-timolol 22.3-6.8 mg/mL drops 1 drp ophthalmic (eye) BID brimonidine 0.2 % drops 1 drp ophthalmic (eye) BID Rx Instructions: administer approximately 8 hours apart cholecalciferol (vitamin D3) 1,250 mcg (50,000 unit) capsule 1,250 mcg PO QWEEK ondansetron HCl 8 mg tablet 8 mg PO Q8H pantoprazole 40 mg tablet,delayed release (DR/EC) 40 mg PO DAILY artifi.tears(hypromellose)(PF) 1.7 % drops with applicator 1 drp ophthalmic (eye) 4-8XD PRN brimonidine 0.2 % drops 1 drp ophthalmic (eye) Q8H cholecalciferol (vitamin D3) 125 mcg (5,000 unit) capsule 125 mcg PO DAILY dorzolamide-timolol 22.3-6.8 mg/mL drops 1 drp ophthalmic (eye) BID erythromycin 5 mg/gram (0.5 %) ointment 0.5 inch ophthalmic (eye) BID levothyroxine 75 mcg tablet 75 mcg PO DAILY ramipril 10 mg capsule 10 mg PO DAILY naproxen 500 mg tablet 500 mg PO BID levetiracetam [Keppra] 500 mg tablet 500 mg PO BID lidocaine-prilocaine 2.5-2.5 % cream 20 g topical ONCE Qty: 30 1RF Rx Instructions: as a single dose 60 min before procedure over area ondansetron 8 mg tablet,disintegrating 8 mg PO Q8H PRN (Reason: nausea and vomiting) Qty: 30 2RF artifi.tears(hypromellose)(PF) 1.7 % drops with applicator 1 drp ophthalmic (eye) 4-8XD PRN brimonidine 0.2 % drops 1 drp ophthalmic (eye) Q8H cholecalciferol (vitamin D3) 125 mcg (5,000 unit) capsule 125 mcg PO Q2W dorzolamide-timolol 22.3-6.8 mg/mL drops 1 drp ophthalmic (eye) BID erythromycin 5 mg/gram (0.5 %) ointment 0.5 inch ophthalmic (eye) BID levothyroxine 75 mcg capsule 75 mcg PO DAILY naproxen 250 mg tablet 250 mg PO BID PRN ramipril 10 mg capsule 10 mg PO DAILY levetiracetam [Keppra] 500 mg tablet 500 mg PO BID amoxicillin-pot clavulanate 875-125 mg tablet 1 tab PO BID Patient Comments: take 1 tablet by mouth every 12 hours for 7 days lidocaine-prilocaine 2.5-2.5 % cream 1 applic topical ONCE PRN (Reason: port access) 30 Days Qty: 30 2RF Primary Care Provider: David Case NP Referrals: David Case NP, [facility] [Primary Care Provider] - 3-5 Days if not improving Activity Restrictions/Additional Instructions: Plenty of fluids and rest. Currently Motrin and Tylenol for headache. Follow-up with your doctor if not improving. Disposition Disposition: Home, Self Care
[2023-06-11] MEDS: Morphine 4 MG/ML Syringe IV ×2 (09:56→10:39)
[2023-06-11] MEDS: Ondansetron 4 MG/2 ML Vial IV (09:56)
[2023-06-11 10:16] LABS: Hematocrit 32.4 % (37-47); Hemoglobin 10.1 g/dL (12.0-15.0); Mean Corp Hgb Conc 31.2 g/dL (32-36); Mean Corpuscular Hgb 30.6 pg (27.0-32.0); Mean Corpuscular Volume 98.2 fL (81-99); Mean Platelet Vol. 10.9 fl (6.2-12.0); POSITIVE COUNT YES; POSITIVE MORPHOLOGY YES; Platelet Count 66 K/mm3 (150-450); RBC Distribution Width CV 21.4 % (11.6-14.6); RBC Distribution Width SD 74.4 fl (35.1-43.9); White Blood Count 5.5 K/mm3 (4.4-11.0)
[2023-06-11 10:17] LABS: Scan Indicated on CBC? Y/N YES- FLAGS NOTED
[2023-06-11] MEDS: Acetaminophen 500 MG Tablet 1000 MG PO (11:18)
[2023-06-11 11:43] VITALS: BP 143/73
== END 2023-06-11 11:47 | disposition home or self-care (01) ==
PROVIDERS: Emergency Provider Emergency Medicine; PCP Nurse Practitioner Family; Visit Provider Emergency Medicine
DX: R51.9 Headache, unspecified (principal); I10 Essential (primary) hypertension; Z87.891 Personal history of nicotine dependence; Z85.841 Personal history of malignant neoplasm of brain; Z92.21 Personal history of antineoplastic chemotherapy; Z85.22 Personal history of malignant neoplasm of nasal cavities, middle ear, and accessory sinuses
CPT/HCPCS: 36591; 70450; 85027; 96374; 96375; 96376; 99282; A4216; J2405

== ENCOUNTER → 2023-06-14 | Outpatient (CLI) | payer MEDICAID, SELFPAY ==
--- NOTE | 2023-06-14 07:37 | MRI_ITS ---
INDICATION: eval tumor response prior to XRT -- please compare to prior OUTSIDE IMAGING EXAMINATION: MRI of the face- MR Face Neck Orbit WO/W Contrast TECHNIQUE: MRI examination of the face or extension protocol including multiplanar multiecho pre and postcontrast imaging. IV Contrast dosage and agent: 17 mL clariscan COMPARISON: MRI of the brain dated 02/15/2023 CTA examination on 06/11/2023 FINDINGS: ORBITS: 1. Normal appearance the bony estrada the orbits. Soft tissue planes including preseptal and post septal soft tissue planes have normal appearance. Normal appearance of the globes, ocular lenses and optic nerves. NASAL SKELETON: Normal, no fractures noted. Nasal septum is near midline. PARANASAL SINUSES: There is a significant soft tissue thickening and enhancing material involving the paranasal sinuses particularly the frontal sinuses greater on the RIGHT than LEFT, ethmoid complexes greater on the RIGHT than LEFT as well as RIGHT sphenoid sinus. There is an ovoid filling defect within the RIGHT sphenoid sinus. There is dural enhancement in the polar region of the RIGHT frontal lobe. There however has been significant improvement of the previous mass effect identified on 08/18/2022. No evidence of vasogenic edema. No intraparenchymal mass hemorrhage or contrast enhancement. SKULL BASE AND ZYGOMATIC ARCHES: Normal, normal alignment, no fractures noted. VISUALIZED MANDIBLE: 1. Normal appearance of the mandibular condyles, TMJs, and the visualized mandible to the level of the symphysis. 2. Pancreas is not clearly visualized on current exam. OTHER: Normal appearance of the deep spaces of the head and visualized upper neck. Airway has normal appearance. MRI/Orbit Face Neck W/WO Contrast IMPRESSION: 1. Significant improvement of the soft tissue mass along the RIGHT frontal cranial vault associated with the frontal lobes. There is mild persistent dural enhancement significant improvement of mass effect however. 2. No intraparenchymal mass hemorrhage or acute territorial infarct, no areas of abnormal intraparenchymal contrast enhancement. 3. Chronic sinus mucosal thickening and a opacification of multiple air cells including ethmoid air cells greater on the RIGHT than LEFT and RIGHT sphenoid sinus. Ovoid circumscribed structure within the RIGHT sphenoid sinus of uncertain etiology. Electronically Signed: David Huang MD at 1:01 EST ,
--- NOTE | 2023-06-14 07:37 | MRI_ITS ---
STUDY: MRI BRAIN WITH AND WITHOUT CONTRAST REASON FOR EXAM: Female, 63 years old. eval tumor response prior to XRT -- A 63-year-old female with a history of head and neck carcinoma presenting for initial staging examination. TECHNIQUE: Standardized multiplanar fat and water weighted pulse sequences were obtained. IV 17ML Clariscan was administered for the contrast portion of the examination. COMPARISON: MRI of the brain dated February 15, 2023. Head CT dated June 11, 2023 FINDINGS: Previously seen intensely enhancing 4.9 x 2.30 cm extra-axial lobular pleural-based mass in the anterior floor of the bilateral frontal lobes/gyrus recti demonstrates 90% interval resolution/decrease in size with only minimal dural thickening and enhancement seen in these regions on images 64 through 74/142. The maximum thickness of the dural process of the bilateral frontal lobes measures 3.9 mm on the right, immediately adjacent to the interhemispheric fissure and posterior to the frontal sinus as seen on image 71/142 series 6. Redemonstration of abnormal soft tissue opacification across the right and left size of the frontal sinuses with intense enhancement of the soft tissues within the sinuses. Redemonstration of abnormal soft tissue opacification of the right ethmoid air cells from anterior to posterior which also demonstrates intense enhancement on the postcontrast portion of the study. The right sphenoid sinus is completely opacified with mucous material with enhancement of the wall but no central enhancement. There are no additional ring-enhancing lesions of the brain parenchyma of the bilateral cerebral hemispheres or the posterior fossa. No infiltrative process or focal edema is present in the brain parenchyma. No demonstrated dural carcinomatosis or meningeal involvement on the current study. Normal size of the ventricles and extra-axial spaces for the patient''s age. There are a limited number of small white matter hyperintensities, distributed throughout the deep white matter tracts of the cerebral hemispheres, consistent with mild chronic white matter ischemic changes. Normal bilateral basal ganglia. Normal thalami. There is no extra-axial fluid accumulation. Normal flow voids within the major intracranial circulation suggesting patency by spin echo criteria. Normal venous enhancement. Normal sella turcica, pituitary gland, infundibular stalk, optic chiasm and hypothalamus. Normal tectal plate and pineal gland. Normal midbrain, richa and medulla. Normal cerebellum. Normal basal cisterns. Normal bilateral temporal bones. Normal bilateral internal auditory canals. No demonstrated orbital abnormality, within the constraints of a routine brain study. Normal calvarium and skull base. Normal visualized soft tissue structures. Normal visualized upper cervical spine. 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 However there is still abnormal soft tissue opacification and enhancement across the frontal sinuses and the right ethmoid air cells positioning residual malignancy in these regions. This can be correlated with PET/CT to determine if any malignant activity is still present. Radiation induced mucositis can present in a similar manner, correlate with PET/CT. 1. Previously seen intensely enhancing 4.9 x 2.30 cm extra-axial lobular pleural-based mass in the anterior floor of the bilateral frontal lobes/gyrus recti demonstrates 90% interval resolution/decrease in size with only minimal dural thickening and enhancement seen in these regions on images 64 through 74/142. The maximum thickness of the dural process of the bilateral frontal lobes measures 3.9 mm on the right, immediately adjacent to the interhemispheric fissure and posterior to the frontal sinus as seen on image 71/142 series 6. 2. Redemonstration of abnormal soft tissue opacification across the right and left size of the frontal sinuses with intense enhancement of the soft tissues within the sinuses. 3. Redemonstration of abnormal soft tissue opacification of the right ethmoid air cells from anterior to posterior which also demonstrates intense enhancement on the postcontrast portion of the study. 4. The right sphenoid sinus is completely opacified with mucous material with enhancement of the wall but no central enhancement. Electronically Signed: Nayan Mendez MD at 9:34 EST ,
--- NOTE | 2023-06-21 12:55 | CASEMGMT ---
Social Work Outpatient Oncology Support Care Screening 06/19/23: Sw met with patient to discuss patient's distress screening. Patient states that her most recent scans came back good and she is going to start radiation therapy. Patient states that she feels as though she has been coping well since given her diagnosis. Patient states that she is very blessed with a lot of family support who have helped her throughout this process. Patient states that she has felt like a burden to her loved ones due to all the time they take out of their lives to take her to doctors appointments. Sw provided support, and utilized active listening. Sw discussed and brainstormed appropriate coping skills for patient to utilize. Patient reports that she has a good support group found in her zoroastrianism family as well. Patient states that she is in a much better place now than when she first got diagnosed. Sw encouraged patient to reach out to social work should any needs or concerns present themselves. Patient expressed understanding. Rahel Alfonso, DIRECTOR OF MUSIC, UTILITY WORKER PRODUCTION
== END | disposition home or self-care (01) ==
LOC: MRI 07:17
PROVIDERS: PCP Nurse Practitioner Family; Referring Provider Student in an Organized Health Care Education/Training Program; Visit Provider Student in an Organized Health Care Education/Training Program
DX: C7A.1 Malignant poorly differentiated neuroendocrine tumors (principal)
CPT/HCPCS: 70543; 70553; A9575

== ENCOUNTER 2023-06-16 06:38 | Emergency (ER) | payer MEDICAID, SELFPAY ==
[2023-06-16 06:39] VITALS: BP 209/82; PULSE 94; RESP 20; TEMP 36.7; O2SAT 99; BMI 33.1
[2023-06-16] MEDS: 0.9% Normal Saline (1000mL) 1,000 ML 999 ML IV (07:44)
[2023-06-16] MEDS: HYDROmorphone 1 MG/ML Syringe IV (07:44)
--- NOTE | 2023-06-16 07:44 | EX.ED.VIS.EY ---
HPI History of Present Illness Chief Complaint: Eye Problem Informant: patient Narrative Narrative: 63-year-old female with a history of poorly differentiated neuroendocrine tumor currently just finished chemotherapy with [facility] here locally. She sees ophthalmology with with Dr. Chalo Minor. Patient was treated with carboplatin etoposide. She is currently undergoing evaluation for radiation. Patient states that at baseline she can normally see colors only of the right eye. The patient states that on Saturday of this past week she developed a significant increase in her right eye pain pressure and right headache. She states that she was seen in the emergency room had a head CT and was given morphine. Head CT did not show anything acute. On 14 June she underwent an MRI showed significant improvement of the soft tissue mass along the right frontal cranial vault associated with the frontal lobes. There was some persistent dural enhancement with significant improvement of the mass effect. There is no intraparenchymal mass hemorrhage or acute territorial infarct or areas of abnormal intraparenchymal contrast-enhancement. Noted chronic sinus mucosal thickening and opacification of multiple air cells including the ethmoid air cells and sphenoid sinus. Patient states that the right eye has become red and more painful. She wonders if it could be due to her eyedrops (brimonidine). She notes some associated nausea. She states she feels better in a sitting up position than she does lying flat. Chronic anosmia. She states that the bright lights of a room or more painful to her. [facility] Medical History Anemia Arthritis Back pain Cancer Encounter for chemotherapy management Former smoker History of steroid therapy Hypertension Hypertension Leg cramps Malignant poorly differentiated neuroendocrine tumors Neck abscess Ocular proptosis Post-menopausal Primary cancer of paranasal sinus Substance abuse Thyroid disease Wears dentures Wears glasses Home Medications albuterol sulfate 90 mcg/actuation aerosol inhaler 2 puff inhalation Q6H PRN SOB 03/15/23 [History Last Taken Unknown] cetirizine 10 mg tablet (Zyrtec) 10 mg PO DAILY PRN allergy symptoms 03/15/23 [History Last Taken Unknown] brimonidine 0.2 % eye drops 1 drp ophthalmic (eye) DAILY 04/02/23 [History Last Taken Unknown] cholecalciferol (vitamin D3) 1,250 mcg (50,000 unit) capsule 1,250 mcg PO .QOWEEK 04/02/23 [History Last Taken Unknown] levothyroxine 75 mcg tablet 75 mcg PO DAILY 04/16/23 [History Last Taken Unknown] lidocaine-prilocaine 2.5 %-2.5 % topical cream 20 g topical ONCE #30 grams 04/16/23 [Rx Last Taken Unknown] levetiracetam 500 mg tablet (Keppra) 500 mg PO BID 05/07/23 [History Last Taken Unknown] ondansetron 8 mg disintegrating tablet 8 mg PO Q8H PRN nausea and vomiting #30 tabs 05/07/23 [Rx Last Taken Unknown] ramipril 10 mg capsule 10 mg PO DAILY 05/07/23 [History Last Taken Unknown] Allergy/AdvReac Type Severity Reaction Status Date / Time No Known Allergies Allergy Verified 05/28/23 09:27 Family History Mother Hypertension Diabetes Aunt Hypertension Father Diabetes Mother Hypertension Surgical History Abscess, neck History of hand surgery Hx of hand surgery Social History Smoking Status: Former smoker alcohol intake: current alcohol intake frequency: holidays/special occasions only substance use type: does not use ROS ROS ED Constitutional Constitutional ED: Denies chills or weight loss Eyes Eyes: Reports other Details: Chronic right eye vision loss Increased right eye pain/pressure New right eye redness ; Denies change in vision or diplopia ENT ENT ED: Reports other Details: Chronic anosmia ; Denies ear pain, rhinorrhea or sore throat Cardiovascular Cardiovascular: Denies chest pain, orthopnea, palpitations or racing heartbeat Respiratory/Chest Respiratory/Chest: Denies cough, dyspnea or orthopnea Gastrointestinal Gastrointestinal: Denies abdominal pain, diarrhea, nausea or vomiting Genitourinary Genitourinary ED: Denies dysuria, hematuria or urinary frequency Musculoskeletal Musculoskeletal: Denies arthralgias or myalgias Integumentary Denies abscess or rash Neurologic Neurologic: Reports headache(s); Denies paresthesias or weakness Psychiatric Psychiatric: Denies anxiety, depression, suicidal ideation or suicidal thoughts Endocrine Endocrinology: Denies polydipsia, polyphagia or polyuria Allergic/Immunologic Allergic/Immunologic ED: Denies mouth swelling, tongue swelling or urticaria EXAM Physical Exam Const Vital Signs: 06/16/23 06:39 Temperature 98.0 F Temperature Source Oral Pulse Rate 94 Respiratory Rate 20 H Blood Pressure 209/82 H Blood Pressure Mean 124 Pulse Ox 99 Oxygen Delivery Method Room Air Positive well nourished and well developed General Appearance ED: well developed HEENT Reports normocephalic, head/scalp atraumatic and moist mucous membranes HEENT Narrative: There is some mild swelling on the right maxillary sinus region. Slight ptosis of the eye Eyes PERRL and EOMs intact bilaterally Eyes Narrative: Right eye conjunctival injection. Pupil is approximately 4 mm. Intraocular pressures measuring 8781 and 82 on the right left 3330 and 31 Left eye appears unaffected. No change in pain in right eye with light shown in the left eye Neck no lymphadenopathy, supple and no JVD Neck Narrative: . Resp normal respiratory effort and clear to auscultation bilaterally Cardio regular rate, regular rhythm and no murmurs GI normal to inspection, nondistended, normoactive bowel sounds and non-tender Palpation: soft Back/Spine no CVA tenderness and normal ROM Extremity normal to inspection General Extremety ED: Negative for edema General Extremity: Negative for edema Neuro oriented x3 and CN's II-XII intact bilaterally Sensorium / Orientation: alert Motor Exam: strength 5/5 throughout Psych mental status grossly normal Mood & Affect: Negative for depressed or tearful Skin no rashes or lesions noted and no wounds MDM MDM MDM Narrative Medical decision making narrative: Basic blood work is obtained and essentially negative. I did review the patient's head CT and MRI. Tetracaine seem to provide some soothing effect to the eye but did not relieve headache or pressure. Patient was kept in a 60 to 65 degree angle where she felt most comfortable. She received a dose of IV Dilaudid and Zofran. I spoke with ophthalmology who is covering Dr. Minor at [facility]. We are have her transported there for further ophthalmologic evaluation. No further ophthalmologic medications requested by damoning. Case was discussed with ED attending at as well. Patient was significantly hypertensive upon arrival. This is down to 167/75. Discharge Plan Triage Chief Complaint: Eye Problem ED Provider: Willis Parikh Dx/Rx/DC Orders Clinical Impression: Primary cancer of paranasal sinus, Headache, Malignant poorly differentiated neuroendocrine tumors, Ocular proptosis, Acute pain in right eye, Hypertension Prescriptions: No Action albuterol sulfate 90 mcg/actuation HFA aerosol inhaler 2 puff inhalation Q6H PRN (Reason: SOB ) cetirizine [Zyrtec] 10 mg tablet 10 mg PO DAILY PRN (Reason: allergy symptoms) brimonidine 0.2 % drops 1 drp ophthalmic (eye) DAILY Rx Instructions: administer approximately 8 hours apart cholecalciferol (vitamin D3) 1,250 mcg (50,000 unit) capsule 1,250 mcg PO .QOWEEK levothyroxine 75 mcg tablet 75 mcg PO DAILY lidocaine-prilocaine 2.5-2.5 % cream 20 g topical ONCE Qty: 30 1RF Rx Instructions: as a single dose 60 min before procedure over area ondansetron 8 mg tablet,disintegrating 8 mg PO Q8H PRN (Reason: nausea and vomiting) Qty: 30 2RF ramipril 10 mg capsule 10 mg PO DAILY levetiracetam [Keppra] 500 mg tablet 500 mg PO BID Primary Care Provider: David Case NP Referrals: David Case NP, CONTINUITY TESTER-C [Primary Care Provider] - Disposition Disposition: Acute Care Hospital Discharge Location: Main Discharge Date/Time: 06/16/23 09:38
[2023-06-16] MEDS: Fluorescein 1 MG STRIP 1 STRIP RIGHT EYE (07:45)
[2023-06-16] MEDS: Tetracaine 0.5% Ophthalmic Bottle 1 DRP RIGHT EYE (07:45)
[2023-06-16] MEDS: Ondansetron 4 MG/2 ML Vial IV (07:45)
[2023-06-16 08:00] LABS: Absolute Lymphocyte Count 2.21 X10^3/uL (0.83-4.51); Absolute Neutrophil Count 3.9 X10^3/uL (2.0-7.7); Basophil# 0.02 X10^3/uL; Basophil% 0.3 % (0-1); Eosinophil# 0.05 X10^3/uL; Eosinophils% 0.7 % (0-5); Hematocrit 33.1 % (37-47); Hemoglobin 10.7 g/dL (12.0-15.0); Lymphocyte # 2.21 X10^3/ul (0.83-4.51); Lymphocyte % 30.2 % (19-41); Mean Corp Hgb Conc 32.3 g/dL (32-36); Mean Corpuscular Hgb 31.6 pg (27.0-32.0); Mean Corpuscular Volume 97.6 fL (81-99); Mean Platelet Vol. 10.6 fl (6.2-12.0); Monocyte# 1.01 X10^3/uL; Monocyte% 13.8 % (0-10); NRBC Flagged by Analyzer 0 % (0-5); Neutrophil # 3.86 X10^3/uL (2.7-7.7); Neutrophil % 52.5 % (47-70); POSITIVE MORPHOLOGY YES; Platelet Count 142 K/mm3 (150-450); RBC Distribution Width CV 21.5 % (11.6-14.6); RBC Distribution Width SD 74.7 fl (35.1-43.9); Red Blood Count 3.39 M/mm3 (4.2-5.4); White Blood Count 7.3 K/mm3 (4.4-11.0)
[2023-06-16 08:10] LABS: Anion Gap 5 (5-15); BUN 8 mg/dL (7-18); BUN/Creat Ratio 12.9 RATIO (10-20); Calcium,Total 9.2 mg/dL (8.5-10.1); Chloride 110 mmol/L (98-107); Creatinine, Serum 0.62 mg/dL (0.55-1.02); Differential Indicated SCAN CRITERIA MET; EST Glomerular Filtration Rate 103 mL/min (>60); Est Glom Filt Rate - Afr Amer 125 mL/min (>60); Estimated Creatinine Clearance 76.83 ml/min; Glucose 100 mg/dL (74-106); Potassium 3.5 mmol/L (3.5-5.1); Sodium Level 142 mmol/L (136-145)
[2023-06-16 08:32] LABS: Anisocytosis 1+
[2023-06-16 08:37] VITALS: BP 167/75
[2023-06-16 09:34] VITALS: BP 160/79; PULSE 81; RESP 16; TEMP 36.4; O2SAT 99
== END 2023-06-16 09:38 | disposition short-term general hospital (02) ==
PROVIDERS: Emergency Provider Emergency Medicine; PCP Nurse Practitioner Family; Visit Provider Emergency Medicine
DX: C31.9 Malignant neoplasm of accessory sinus, unspecified (principal); C7A.1 Malignant poorly differentiated neuroendocrine tumors; Z87.891 Personal history of nicotine dependence; R11.0 Nausea; R51.9 Headache, unspecified; I10 Essential (primary) hypertension; H57.11 Ocular pain, right eye; H05.20 Unspecified exophthalmos
CPT/HCPCS: 80048; 85025; 96361; 96374; 96375; 99283; J7030; J2405

== ENCOUNTER → 2023-07-04 | Outpatient (CLI) | payer MEDICAID, SELFPAY ==
--- NOTE | 2023-07-04 09:34 | ST.MBS ---
Modified Barium Swallow Patient Information Study Date: 07/04/23 Study Time: 09:30 Direct Billable Minutes: 84 Total Minutes procedure & reportin Diagnosis: Malignant poorly differentiated neuroendocrine tumors C7A.1 Referring Physician: Von Tolbert Reason for Referral: Objectively assess swallow function, assess risk for aspiration, and determine recommendations for least restrictive diet textures and compensatory strategies to improve safety of swallow. 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 The patient is planned for 6.5 weeks of radiation treatment, which began 07/01/2023. BSE with SENIOR FIRE PROTECTION ENGINEER (06/24/2023) recommending regular textures / thin liquids with plans for baseline MBSS as the patient is at risk for dysphagia and increased aspiration risk during and after radiation treatment. Other PMH: Anemia, Arthritis, Back pain, Former smoker, HTN, Malignant poorly differentiated neuroendocrine tumors, Neck abscess, Ocular proptosis, Primary cancer of paranasal sinus, Substance abuse, Thyroid disease, Wears dentures and glasses. Current Diet Ordered: Regular textures / Thin liquids Dentition: Natural Teeth and Missing Teeth Mental Status: WNL Respiratory Status: Oxygenating on Room Air Penetration-Aspiration Scale Penetration-Aspiration Scale: OBJECTIVE ASSESSMENT OF SWALLOW FUNCTION (QUANTITATIVE ? PER TRIAL): PENETRATION / ASPIRATION SCALE (VALERIO): 1 = does not enter airway 2 = enters airway/above vocal folds/ejected 3 = enters airway/above vocal folds/not ejected 4 = enters airway/contacts vocal folds/ejected 5 = enters airway/contacts vocal folds/not ejected 6 = enters airway/below vocal folds/ejected 7 = enters airway/below vocal folds/not ejected despite effort 8 = enters airway/below vocal folds/no effort VIDEOFLOROSCOPIC SCALE SCORE (VALERIO): Grade I = aspiration of material that has penetrated into the laryngeal vestibule, intact cough reflex Grade II = aspiration < 10 % of the bolus, intact cough reflex Grade III = aspiration of < 10 % of the bolus, reduced cough reflex or aspiration of > 10 % of the bolus, intact cough reflex Grade IV = aspiration of > 10 % of the bolus, reduced cough reflex Penetration-Aspiration Scale Score Thin Liquid via teaspoon: Result: 2= enter airway/above vocal folds/ejected Thin Liquid via teaspoon Trial 2: Result: 1= does not enter airway Thin Liquid via large single sip: cup: Result: 2= enter airway/above vocal folds/ejected [place] Thick Liquid via small single sip: cup: Result: 1= does not enter airway Pudding via teaspoon: Result: 1= does not enter airway Comment: ESOPHAGEAL SCREEN: Complete clearance. / Cookie: Result: 1= does not enter airway Thin Liquid via sequential sips:straw: Result: 2= enter airway/above vocal folds/ejected Oral Phase Labial Seal: No Labial Escape Tongue Control During Bolus Hold: Cohesive bolus between tongue to palatal seal Bolus Preparation/Mastication: Slow prolonged chewing/mashing with complete recollection Bolus Transport/Lingual Motion: Brisk tongue motion Oral Residue: Residue collection on oral structures Pharyngeal Phase Initiation of Pharyngeal Swallow: Bolus head in valleculae Soft Palate Elevation: Trace column of contrast/air between soft palate and pharyngeal wall Laryngeal Elevation: Comp. Superior move thyroid cart w/comp. apprx arytenoid cart-epig pet Anterior Hyoid Excursion: Partial anterior movement Epiglottic Movement: Complete inversion Laryngeal Vestibule Closure at Height of Swallow: Complete; no air/contrast in laryngeal vestibule Pharyngeal Stripping Wave: Present - complete Pharyngoesophageal Segment Opening: Complete distension and complete duration; no obstruction of flow Tongue Base Retraction: No contrast between tongue base and posterior pharyngeal wall Pharyngeal Residue: Trace residue within or on pharyngeal structures Esophageal Phase Esophageal Clearance: Complete clearance Diagnosis/Impression Diagnosis: Oropharyngeal swallow function grossly WNL Impression: The patient demonstrated prolonged, but adequate mastication. Piecemeal deglutition of cookie. Timely swallow onset. Trace laryngeal penetration with full ejection of thin liquids via tsp, cup, and straw. No aspiration observed. Trace pharyngeal residue after the swallow. Recommendations Diet: Regular Textures and Thin Liquids Compensatory Strategies: Small Bites, Small Sips, Slow Rate and Sitting upright Recommend Repeat Modified Barium Swallow: Yes Comment: Repeat MBSS 3 months after completion of radiation to monitor swallow function as the patient is at risk for worsening dysphagia and aspiration risk s/p radiation treatment. Need for Skilled Speech Therapy Services: Yes Comment: Will recommend OP speech therapy during and following radiation treatment as the patient is at risk for dysphagia and increased aspiration risk. Will recommend ongoing assessment of diet tolerance, education re: short and retirement effects of radiation that impact swallow function, and completion of prophylactic oropharyngeal exercise program to maintain optimal swallow function during and after treatment. Education Completed: 1. Described result of evaluation. and 2. Pt understands evaluation & agrees with goals and treatment plan. Status Active ST Patient: Active Contact Information [facility] Speech Therapy:: Saige Shine M.A. [facility] [employer]INE[facility] Speech-Language Pathologist [facility] [address] [place] [address] [email or web address] [phone]
== END | disposition home or self-care (01) ==
PROVIDERS: PCP Nurse Practitioner Family; Referring Provider Radiology Radiation Oncology; Visit Provider Radiology Radiation Oncology
DX: C31.9 Malignant neoplasm of accessory sinus, unspecified (principal)
CPT/HCPCS: 74230; 77386; 92611

== ENCOUNTER 2023-10-14 11:36 | Outpatient (RCR) | payer MEDICAID, SELFPAY | END 2023-11-03 23:59 | LOC: NS 11:36 | PROVIDERS: PCP Nurse Practitioner Family; Visit Provider Internal Medicine Hematology & Oncology | DX: Z71.3 Dietary counseling and surveillance (principal); C31.9 Malignant neoplasm of accessory sinus, unspecified; C7A.1 Malignant poorly differentiated neuroendocrine tumors; R63.0 Anorexia | CPT/HCPCS: 97803 ==

== ENCOUNTER → 2023-11-14 | Outpatient (CLI) | payer MEDICAID, SELFPAY ==
--- NOTE | 2023-11-14 17:01 | MRI_ITS ---
STUDY: MRI ORBITS WITH AND WITHOUT CONTRAST REASON FOR EXAM: Female, 63 years old. follow up treated Paranasal neuroendocrine tumor -- post treatment, please compare to prior TECHNIQUE: Standardized fat and water weighted pulse sequences were obtained in all 3 orthogonal planes, pre-and post contrast administration. IV 10ML CLARISCAN was administered for the contrast portion of the examination. COMPARISON: MR orbits June 14, 2023. PET CT November 12, 2023. FINDINGS: Fluid and enhancing mucosa noted in the frontal, maxillary, ethmoid, and sphenoid sinuses. No abnormal enhancement of the intracranial contents noted. No intracranial fluid collection identified. Normal bilateral globes. Normal bilateral optic nerve sheath complexes and optic nerves. Normal bilateral intraconal and extraconal spaces. Normal bilateral extraocular muscles. Normal optic chiasm and post-chiasmatic tracts. Normal sella turcica, pituitary gland, infundibular stalk, and hypothalamus. Normal bilateral cavernous sinuses. Normal tectal plate and pineal gland. Normal flow voids within the major intracranial circulation suggesting patency by spin echo criteria. Normal size of the ventricles and extra-axial spaces for the patient''s age. There are multiple white matter hyperintensities, distributed throughout the deep white matter tracts of the cerebral hemispheres, consistent with moderate chronic white matter ischemic changes. Normal bilateral basal ganglia. Normal thalami. There is no extra-axial fluid accumulation. Normal midbrain, richa and medulla. Normal cerebellum. Normal basal cisterns. MRI/Orbit Face Neck W/WO Contrast IMPRESSION: Pansinusitis. No intracranial pathology noted. Electronically Signed: Aaron Suarez MD at 20:01 EDT ,
[2023-11-14] MEDS: 0.9% Saline Lock 10 ML Syringe IV (17:45)
== END | disposition home or self-care (01) ==
LOC: MRI 16:57
PROVIDERS: PCP Nurse Practitioner Family; Referring Provider Student in an Organized Health Care Education/Training Program; Visit Provider Student in an Organized Health Care Education/Training Program
DX: C31.9 Malignant neoplasm of accessory sinus, unspecified (principal)
CPT/HCPCS: 70543; A9575; A4216

== ENCOUNTER 2023-11-19 13:58 | Outpatient (RCR) | payer MEDICAID, SELFPAY | END 2023-12-03 23:59 | LOC: NS 13:58 | PROVIDERS: PCP Nurse Practitioner Family; Visit Provider Internal Medicine Hematology & Oncology | DX: Z71.3 Dietary counseling and surveillance (principal); C7A.1 Malignant poorly differentiated neuroendocrine tumors; C31.9 Malignant neoplasm of accessory sinus, unspecified; R63.0 Anorexia ==

== ENCOUNTER → 2023-11-22 | Outpatient (CLI) | payer MEDICAID, SELFPAY ==
--- NOTE | 2023-11-22 07:45 | RAD_ITS ---
INDICATION: PAIN EXAMINATION/TECHNIQUE: X-RAY - XR Spine Lumbar 2 or 3 Views COMPARISON: PET/CT dated November 12, 2023 FINDINGS: VERTEBRAE: Preserved vertebral body height. No fracture. No spondylolisthesis. There is a grade 1 anterior spondylolisthesis of L5 on S1. No significant facet arthropathy. DISCS: There is multilevel degenerative disc disease. INCLUDED ABDOMEN: Included bowel gas pattern is non-obstructive. There are vascular calcifications. RAD/Lumbar Spine 2 or 3 Views IMPRESSION: Multilevel degenerative disc disease. Grade 1 anterior spondylolisthesis of L5 on S1. Atherosclerosis. Electronically Signed: Yajaira Branham MD at 8:46 EDT ,
== END | disposition home or self-care (01) ==
LOC: RAD 07:39
PROVIDERS: PCP Nurse Practitioner Family; Referring Provider Anesthesiology Pain Medicine; Visit Provider Anesthesiology Pain Medicine
DX: M47.27 Other spondylosis with radiculopathy, lumbosacral region (principal)
CPT/HCPCS: 72100

== ENCOUNTER → 2023-12-09 | Outpatient (CLI) | payer MEDICAID, SELFPAY ==
--- NOTE | 2023-12-10 10:06 | SP.MBSS_ITS ---
Modified Barium Swallow Patient Information Study Date: 12/09/23 Study Time: 13:00 Direct Billable Minutes: 117 Total Minutes procedure & reportin Diagnosis: Malignant poorly differentiated neuroendocrine tumors C7A.1 Referring Physician: Shmuel Cabello Reason for Referral: Objectively assess swallow function, assess risk for aspiration, and determine recommendations for least restrictive diet textures and compensatory strategies to improve safety of swallow. 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 From 07/01/2023 ? 08/13/2023 she completed definitive chemoradiation. BSE with MASTER COASTWISE YACHT (06/24/2023) recommending regular textures / thin liquids. MBSS 07/04/2023 revealing oropharyngeal swallow function grossly WNL and recommending Regular textures / Thin liquids. She followed with ST during chemoradiation treatment to manage dysphagia. She did not schedule for additional ST after treatment as she reported to her radiation oncologist that swallowing was giving her little difficulty. Currently, the patient is 120lbs, which is ~49lbs of weight loss since the start of her chemoradiation treatment. She has severe xerostomia at night managed by 2 humidifiers at night, mild xerostomia ot herwise. She has occasional vomiting. Moderate-severe hypogeusia. She uses baking soda and salt rinse 4-5X daily to manage her sore mouth, which is painful per patient report. MASTER COASTWISE YACHT observed oral mucosa to be red. Patient feels she has unresolved thrush. MASTER COASTWISE YACHT recommended addressing this concern with a physician. She is having difficulty swallowing most solid foods and feels they won't go down. She does consume lobster bisque with small pieces of meat. Otherwise, she consumes purees and liquids. She estimates consuming ~5-6 servings of food daily, 4 Boost, and >64oz of liquids daily. Other PMH: Anemia, Arthritis, Back pain, Former smoker, HTN, Malignant poorly differentiated neuroendocrine tumors, Neck abscess, Ocular proptosis, Primary cancer of paranasal sinus, Substance abuse, Thyroid disease, Wears dentures and glasses. Current Diet Ordered: Puree textures / Thin liquids Dentition: Natural Teeth and Missing Teeth Mental Status: WNL Respiratory Status: Oxygenating on Room Air Penetration-Aspiration Scale Penetration-Aspiration Scale: OBJECTIVE ASSESSMENT OF SWALLOW FUNCTION (QUANTITATIVE ? PER TRIAL): PENETRATION / ASPIRATION SCALE (VALERIO): 1 = does not enter airway 2 = enters airway/above vocal folds/ejected 3 = enters airway/above vocal folds/not ejected 4 = enters airway/contacts vocal folds/ejected 5 = enters airway/contacts vocal folds/not ejected 6 = enters airway/below vocal folds/ejected 7 = enters airway/below vocal folds/not ejected despite effort 8 = enters airway/below vocal folds/no effort VIDEOFLOROSCOPIC SCALE SCORE (VALERIO): Grade I = aspiration of material that has penetrated into the laryngeal vestibule, intact cough reflex Grade II = aspiration < 10 % of the bolus, intact cough reflex Grade III = aspiration of < 10 % of the bolus, reduced cough reflex or aspiration of > 10 % of the bolus, intact cough reflex Grade IV = aspiration of > 10 % of the bolus, reduced cough reflex Penetration-Aspiration Scale Score Thin Liquid via teaspoon: Result: 1= does not enter airway Thin Liquid via teaspoon Trial 2: Result: 1= does not enter airway Thin Liquid via small single sip: cup: Result: 1= does not enter airway Thin Liquid via sequential sips: cup: Result: 2= enter airway/above vocal folds/ejected Comment: Esophageal screen - Minimal retention in the upper esophagus. [place] Thick Liquid via small single sip: cup: Result: 1= does not enter airway Pudding via teaspoon: Result: 1= does not enter airway Comment: Esophageal screen - Mild retention of pudding in upper-mid esophagus. Thin Liquid via sequential sips:straw: Result: 1= does not enter airway Comment: Esophageal screen - Improved clearance of pudding from previous trial. Mild retention in upper-mid esophagus. 08/08 Cookie: Result: 1= does not enter airway Comment: Esophageal screen - retention in the upper and lower esophagus. Retrograde flow of barium in lower esophagus. Thin Liquid via sequential sips:straw Trial 2: Result: 2= enter airway/above vocal folds/ejected Comment: Esophageal screen - improved clearance of barium retention of previous trial with minimal retention of barium remaining in the upper-mid esophagus. 1/4 Cookie with Thin liquid wash: Result: 2= enter airway/above vocal folds/ejected (thin liquid wash) Oral Phase Labial Seal: Interlabial escape, no progression to anterior lip Tongue Control During Bolus Hold: Posterior escape of less than half of bolus Bolus Preparation/Mastication: Slow prolonged chewing/mashing with complete recollection (Bolus fully chewed, but chewing was disorganized) Bolus Transport/Lingual Motion: Repetitive/disorganized tongue motion Oral Residue: Residue collection on oral structures Pharyngeal Phase Initiation of Pharyngeal Swallow: Bolus head at posterior laryngeal surgace of epiglottis Soft Palate Elevation: Trace column of contrast/air between soft palate and pharyngeal wall Laryngeal Elevation: Comp. Superior move thyroid cart w/comp. apprx arytenoid cart-epig pet Anterior Hyoid Excursion: Partial anterior movement Epiglottic Movement: Complete inversion Laryngeal Vestibule Closure at Height of Swallow: Incomplete; narrow column of air/contrast in laryngeal vestibule Pharyngeal Stripping Wave: Present - diminished Pharyngoesophageal Segment Opening: Parital distension and partial duration; parital obstruction of flow (pudding) Tongue Base Retraction: Narrow column of contrast between tongue base & post. pharyngeal wall Pharyngeal Residue: Collection of residue within or on pharyngeal structures Esophageal Phase Esophageal Clearance: Esophageal retention w/ retrograde flow below pharyngoesophageal seg. Diagnosis/Impression Diagnosis: Mild-mod oropharyngeal dysphagia R13.12; Mild esophageal dysphagia R13.14 Impression: The oral phase is primarily marked by... -Disorganized tongue motion manipulating cookie bolus for mastication with cookie, which appeared to adhere to the patient's oral cavity contributing to difficulty manipulating the bolus. -Piecemeal deglutition of cookie requiring 4 swallows to clear 1/4 Lory Doone from the oral cavity. The pharyngeal phase is primarily marked by... -Mild pharyngeal residue due to mildly decreased tongue base retraction, pharyngeal stripping wave, and UES opening/duration. -Mildly decreased anterior hyoid excursion; however, complete laryngeal elevation. Trace laryngeal penetration of liquids with full ejection. No aspiration. The esophageal phase is primarily marked by... -Retention of cookie and pudding in the esophagus, which mostly clears with thin liquid washes. Retrograde flow of cookie from the lower to mid esophagus. Recommendations Diet: Mechanical Soft Textures (Minced and Moist Textures) and Thin Liquids Compensatory Strategies: Small Bites, Small Sips, Alternate bites/solids and sips/liquids (1:1 ratio), Sitting upright and Remain sitting upright for 30 minutes after PO intake Recommend Repeat Modified Barium Swallow: Yes Comment: Plan for repeat MBSS in 6-12 months to continue to monitor swallow function s/p chemoradiation, as pt is at increased risk for worsening dysphagia and aspiration risk secondary to superintendent container terminal effects of chemoradiation. Need for Skilled Speech Therapy Services: Yes Comment: Will plan to resume dysphagia therapy to implement oropharyngeal strengthening, train in use of strategies to decrease risk for aspiration, and train in diet testing and preparation of recommended diet textures. MASTER COASTWISE YACHT informed NEWS ANCHOR, Abby Braun, and radiation oncologist, Dr. Cabello, of painful and red oral cavity, as well as occasional vomiting. RN, hCing, is setting up a patient visit with Dr. Cabello prior to dysphagia treatment session later this week. Recommended Referrals: GI Consult and Dietitian Consult Education Completed: 1. Described result of evaluation., 2. Pt understands evaluation & agrees with goals and treatment plan. and 7. Pt requires further education on strategies & risks. Status Active ST Patient: Active Contact Information [facility] Speech Therapy:: Saige Shine M.A. CCC-MASTER COASTWISE YACHT? Speech-Language Pathologist?? [facility] [address]?? [place] [address]?? [email or web address]?? [phone]
== END | disposition home or self-care (01) ==
LOC: RAD 12:52
PROVIDERS: PCP Nurse Practitioner Family; Referring Provider Student in an Organized Health Care Education/Training Program; Visit Provider Student in an Organized Health Care Education/Training Program
DX: C31.9 Malignant neoplasm of accessory sinus, unspecified (principal)
CPT/HCPCS: 74230; 92611

== ENCOUNTER 2024-01-09 16:16 | Outpatient (RCR) | payer MEDICAID, SELFPAY | END 2024-02-02 23:59 | LOC: NS 16:16 | PROVIDERS: PCP Nurse Practitioner Family; Visit Provider Internal Medicine Hematology & Oncology | DX: Z71.3 Dietary counseling and surveillance (principal); C31.9 Malignant neoplasm of accessory sinus, unspecified; C7A.1 Malignant poorly differentiated neuroendocrine tumors; R63.0 Anorexia | CPT/HCPCS: 97803 ==

== ENCOUNTER 2024-02-03 15:59 | Outpatient (RCR) | payer MEDICAID, SELFPAY | END 2024-03-04 23:59 | LOC: NS 15:59 | PROVIDERS: PCP Nurse Practitioner Family; Visit Provider Internal Medicine Hematology & Oncology | DX: Z71.3 Dietary counseling and surveillance (principal); C31.9 Malignant neoplasm of accessory sinus, unspecified; C7A.1 Malignant poorly differentiated neuroendocrine tumors | CPT/HCPCS: 97803 ==

== ENCOUNTER → 2024-03-31 | Outpatient (CLI) | payer MEDICAID, SELFPAY ==
--- NOTE | 2024-03-31 08:35 | RAD_ITS ---
INDICATION: DDD EXAMINATION/TECHNIQUE: X-RAY - XR Spine Lumbar 2 or 3 Views COMPARISON: 11/22/2023 FINDINGS: VERTEBRAE: Vertebral body height is maintained. There however is a grade 1 anterolisthesis of L5 on S1. Pars defects are present. No fractures noted. There is joint space narrowing at this level. Remaining vertebral bodies have normal appearance. Mild facet hypertrophic changes from L4 to S1. DISCS: Disc space narrowing L5-S1. Remaining disc spaces are maintained. Mild marginal osteophyte formation particularly at L3-4. Findings are stable. INCLUDED ABDOMEN: Included bowel gas pattern is non-obstructive. Scattered atherosclerotic changes within the visualized aorta. RAD/Lumbar Spine 2 or 3 Views IMPRESSION: 1. Disc space narrowing and grade 1 anterolisthesis at L5-S1 contributed by bilateral pars defects. Findings are stable. 2. Remaining bony elements and joint spaces have normal unchanged appearance. Electronically Signed: David Huang MD at 21:41 EDT ,
--- NOTE | 2024-03-31 08:40 | RAD_ITS ---
STUDY: X-RAY - ESOPHAGUS (BARIUM SWALLOW) WITH FLUOROSCOPY REASON FOR EXAM: Female, 63 years old. DYSPHAGIA,WEIGHTLOSS TECHNIQUE: 70 fluoroscopic images view(s) of the esophagus were obtained following swallowing of barium. FLUOROSCOPY TIME (if supplied): (61 seconds) minutes/seconds. 3.9 mGy. COMPARISON: None. FINDINGS: A right-sided portacatheter is seen with the tip in the superior vena cava. There is no demonstrated esophageal foreign body. There is no demonstrated stricture or mucosal abnormality. Normal gastroesophageal junction, without a demonstrated hiatal hernia. Patient was unable to swallow a 12 mm tablet of barium. There is atherosclerotic calcification of the aortic arch with tortuosity of the descending aorta. Normal visualized pulmonary parenchyma. There are diffuse degenerative changes of the visualized thoracic spine. RAD/Esophagus Dual Contrast IMPRESSION: Unremarkable imaging of the esophagus. The patient was unable to swallow the 12 mm tablet of barium. Electronically Signed: Michel Kohler MD at 9:39 EDT ,
== END | disposition home or self-care (01) ==
LOC: RAD 07:56
PROVIDERS: PCP Nurse Practitioner Family; Referring Provider Internal Medicine Gastroenterology; Visit Provider Internal Medicine Gastroenterology
DX: M47.817 Spondylosis without myelopathy or radiculopathy, lumbosacral region (principal); R13.10 Dysphagia, unspecified; R63.4 Abnormal weight loss
CPT/HCPCS: 74220; 72100; 74221

== ENCOUNTER 2024-04-14 14:11 | Outpatient (RCR) | payer MEDICAID, SELFPAY | END 2024-05-04 23:59 | LOC: NS 14:11 | PROVIDERS: PCP Nurse Practitioner Family; Visit Provider Internal Medicine Hematology & Oncology | DX: Z71.3 Dietary counseling and surveillance (principal); C31.9 Malignant neoplasm of accessory sinus, unspecified; C7A.1 Malignant poorly differentiated neuroendocrine tumors | CPT/HCPCS: 97803 ==

== ENCOUNTER 2024-05-11 15:06 | Outpatient (CLI) | payer MEDICAID, SELFPAY ==
[2024-05-11 15:51] LABS: Absolute Lymphocyte Count 0.73 X10^3/uL (0.83-4.51); Absolute Neutrophil Count 2.6 X10^3/uL (2.0-7.7); Basophil# 0.02 X10^3/uL; Basophil% 0.5 % (0-1); Eosinophil# 0.22 X10^3/uL; Hematocrit 31.5 % (37-47); Hemoglobin 9.9 g/dL (12.0-15.0); Lymphocyte # 0.73 X10^3/ul (0.83-4.51); Lymphocyte % 16.7 % (19-41); Mean Corp Hgb Conc 31.4 g/dL (32-36); Mean Corpuscular Hgb 27.2 pg (27.0-32.0); Mean Corpuscular Volume 86.5 fL (81-99); Mean Platelet Vol. 10.7 fl (6.2-12.0); Monocyte# 0.76 X10^3/uL; Monocyte% 17.4 % (0-10); NRBC Flagged by Analyzer 0 % (0-5); Neutrophil # 2.62 X10^3/uL (2.7-7.7); Neutrophil % 60.2 % (47-70); Platelet Count 277 K/mm3 (150-450); RBC Distribution Width CV 15.7 % (11.6-14.6); Red Blood Count 3.64 M/mm3 (4.2-5.4); White Blood Count 4.4 K/mm3 (4.4-11.0)
[2024-05-11 16:19] LABS: ALB/GLOB Ratio 0.6 RATIO (0.9-2.4); AST(SGOT) 44 U/L (15-37); Alanine Aminotransfer ALT/SGPT 37 U/L (13-56); Alkaline Phosphatase 136 U/L (45-117); Anion Gap 5 (5-15); BUN 9 mg/dL (7-18); BUN/Creat Ratio 13.3 RATIO (10-20); Calcium,Total 9.8 mg/dL (8.5-10.1); Chloride 104 mmol/L (98-107); Creatinine, Serum 0.68 mg/dL (0.55-1.02); EST Glomerular Filtration Rate 93 mL/min (>60); Est Glom Filt Rate - Afr Amer 112 mL/min (>60); Follicle Stimulating Hormone 69.7 mIU/mL; Free T3 1.5 pg/mL (2.18-3.98); Globulin 5.1 g/dL (2.2-4.2); Glucose 83 mg/dL (74-106); Iron 25 ug/dL (50-170); Iron Binding Capacity,Total 253 ug/dL (250-450); Luteinizing Hormone 33.9 mIU/mL; PERCENT IRON SATURATION 9.9 % (15.0-55.0); Potassium 3.9 mmol/L (3.5-5.1); Protein, Total 8.1 g/dL (6.4-8.2); Sodium Level 139 mmol/L (136-145); Thyroid Stim Hormone (TSH) 0.467 uIU/mL (0.358-3.740)
[2024-05-11 16:53] LABS: Ferritin 601 ng/mL (8-252)
[2024-05-15 06:10] LABS: Adrenocorticotropic Hormone 14.8 pg/mL (7.2-63.3); Insulin Like Growth Factor 96 ng/mL (57-202); PROLACTIN 13.4 ng/mL (3.6-25.2)
== END 2024-05-11 23:59 | disposition home or self-care (01) ==
LOC: MEDOUTP 15:06
PROVIDERS: Nurse Practitioner Family; PCP Nurse Practitioner Family; Referring Provider Internal Medicine Endocrinology, Diabetes & Metabolism; Visit Provider Internal Medicine Endocrinology, Diabetes & Metabolism
DX: E23.6 Other disorders of pituitary gland (principal); D50.9 Iron deficiency anemia, unspecified
CPT/HCPCS: 36591; 80053; 82024; 82533; 82728; 83001; 83002; 83540; 83550; 84146; 84305; 84443; 84481; 85025; A4216

== ENCOUNTER → 2024-05-12 | Outpatient (CLI) | payer MEDICAID, SELFPAY ==
--- NOTE | 2024-05-12 07:39 | CT_ITS ---
STUDY: CT CHEST T ABDOMEN WITH CONTRAST REASON FOR EXAM: Female, 64 years old. H/o paransal sinus ca RADIATION DOSAGE (If Supplied By Facility): CTDIvol = ( 8.25 ) mGy, DLP = ( 680.02 ) mGycm TECHNIQUE: Transaxial imaging was performed following intravenous administration of IV 60mL Isovue-370. Multiplanar coronal and sagittal images were reformatted. Individualized dose optimization techniques were used for this CT. COMPARISON: No relevant priors. FINDINGS: CHEST A right-sided portacatheter is seen with the tip in the superior vena cava. Increased interstitial markings seen in both lung apices anteriorly suggestive of scarring. The patient received radiation therapy, this may represent post radiation fibrosis. There is no demonstrated pleural abnormality. There are calcifications of the coronary arteries. Normal mediastinum. Normal hilar regions. Normal unenhanced pulmonary arteries. Normal aorta arch and descending thoracic aorta. There are multi-level degenerative changes of the thoracic spine. ABDOMEN Normal liver. Normal gallbladder and extrahepatic biliary system. Normal spleen. Normal pancreas. Normal bilateral adrenal glands. Normal right kidney. Normal left kidney. Normal visualized stomach. Normal small intestine. Normal colon. The appendix is visualized and appears normal. Normal abdominal aorta. Normal inferior vena cava. Normal retroperitoneum. Normal abdominal wall. Disc space narrowing at the L5-S1 level with grade 1 anterolisthesis of L5 on S1 with spondylolysis of the pars interarticularis of the L5 vertebrae. CT/CT Chest AND Abd W/ Contrast IMPRESSION: Scarring at the lung apices. Electronically Signed: Michel Kohler MD at 15:36 EDT ,
--- NOTE | 2024-05-12 07:39 | CT_ITS ---
STUDY: CT SOFT TISSUE NECK WITH CONTRAST REASON FOR EXAM: Female, 64 years old. H/o paranasal sinus ca RADIATION DOSAGE (If Supplied By Facility): CTDIvol = ( 8.25 ) mGy, DLP = ( 680.02 ) mGycm TECHNIQUE: The patient was scanned in a multi-detector CT scanner. High resolution transaxial imaging was performed following intravenous administration of IV 60mL Isovue-370. Sagittal and coronal images were reconstructed. Individualized dose optimization techniques were used for this CT. COMPARISON: None. FINDINGS: Normal bilateral parotid glands. Normal bilateral front desk person spaces. Normal bilateral parapharyngeal spaces. Normal bilateral carotid spaces. Normal bilateral sublingual and submandibular glands and spaces. Normal visualized nasopharynx. Normal retropharyngeal space. Normal perivertebral space. Normal visualized bilateral faucial tonsils. The visualized tongue, tongue base and oropharynx are normal. The visualized cervical lymph nodes (levels I-) are within normal size limits, and maintain normal morphology. There is no demonstrated solid or cystic mass lesion. There is no abnormal contrast enhancement. Normal epiglottis, bilateral vallecula and hypopharynx. The pre-epiglottic and paraglottic adipose spaces are normal. Normal visualized bilateral piriform sinuses, aryepiglottic folds, vocal cords, and arytenoid-cricoid articulations. Normal subglottic trachea. Normal bilateral lobes of the thyroid gland. Normal visualized pulmonary apices. There is evidence of zavala sinusitis. There is multilevel degenerative changes of the cervical spine. CT/Soft Tissue Neck WITH Contrast IMPRESSION: Pansinusitis. Electronically Signed: Michel Kohler MD at 15:38 EDT ,
[2024-05-12] MEDS: 0.9% Saline Lock 10 ML Syringe IV ×2 (07:45→07:55)
== END | disposition home or self-care (01) ==
LOC: CT 07:31
PROVIDERS: PCP Nurse Practitioner Family; Referring Provider Internal Medicine Hematology & Oncology; Visit Provider Internal Medicine Hematology & Oncology
DX: C31.9 Malignant neoplasm of accessory sinus, unspecified (principal); R63.4 Abnormal weight loss
CPT/HCPCS: 70491; 71260; 74160; Q9967; A4216

== ENCOUNTER 2024-05-25 14:19 | Outpatient (RCR) | payer MEDICAID, SELFPAY | END 2024-06-04 23:59 | LOC: NS 14:19 | PROVIDERS: PCP Nurse Practitioner Family; Visit Provider Internal Medicine Hematology & Oncology | DX: Z71.3 Dietary counseling and surveillance (principal); C31.9 Malignant neoplasm of accessory sinus, unspecified; C7A.1 Malignant poorly differentiated neuroendocrine tumors | CPT/HCPCS: 97803 ==

== ENCOUNTER 2024-08-25 08:30 | Outpatient (RCR) | payer MEDICAID, SELFPAY ==
--- NOTE | 2023-06-24 13:37 | HP.SP.EV_ITS ---
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 The patient is planned for 6.5 weeks of radiation treatment. Other PMH: Anemia, Arthritis, Back pain, Former smoker, HTN, Malignant poorly differentiated neuroendocrine tumors, Neck abscess, Ocular proptosis, Primary cancer of paranasal sinus, Substance abuse, Thyroid disease, Wears dentures and glasses. 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 Smoking Status: Former smoker Hx Smoking: Yes (quit 3-4 yrs ago) Hx Smoking Cessation Date: 08/05/14 Hx Tobacco Use: No Pain Is pain an issue with your current prescribed condition?: No Personal Preferred language: Croatian Patient Allergies Allergies Allergies: Allergies No Known Allergies Allergy (Verified 06/19/23 11:00) Subjective Dysphagia Symptoms Reported Other: No symptoms of dysphagia to report Current Diet Solids Current Diet: Regular Current Diet Liquids Current Liquids: Thin Objective Dysphagia Administered by Administered by: Self Thin Liquids Administred via: Cup and Straw Oral Transit: WNL Bolus clearance: fully cleared Pharyngeal phase: immediate laryngeal elevation Comments: Audible swallow, most notable with sequential sips; otherwise, no overt s/s of aspiration. Regular Oral Preparation: WNL Oral Transit: WNL Bolus clearance: fully cleared Comments: Timely mastication, good oral clearance, no overt s/s of aspiration with regular textured cookie. Impact Impact on Safety & Functioning: Risk for Aspiration and Risk for Inadequate Nutrition/Hydration Comments: At this time, the patient presents with normal swallow function. She is at increased risk for dysphagia and aspiration given plans for 6.5 weeks of radiation to treat primary cancer of paranasal sinus. 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 X Vagus Nerve X Vagus Nerve Result: Impaired Comment:: Slight deviation of palate to the R side XII Hypoglossal Nerve XII Hypoglossal Nerve Result: Intact Swallowing Performance Scale Swallowing Performance Scale Swallowing Performance Scale Result: 1 Normal Reference: Neuro-QoL instrument Radiation Oncology Patient FOIS Functional Oral Intake Scale Total oral diet with no restrictions: Level 7 Plan Plan Plan: While the patient is demonstrating overall normal swallow function at this time, will recommend dysphagia therapy to implement prophylactic oropharyngeal exercise program prior to radiation treatment and to provide ongoing assessment of swallow function and diet tolerance during treatment. The patient is at increased risk for dysphagia, aspiration, malnutrition, and dehydration during radiation treatment to treat primary cancer of paranasal sinus. Will plan to obtain MBSS to determine the patient's baseline swallow function. She will be pl anned for repeat MBSS 3 months s/p completion of radiation treatment, followed by at least yearly MBSS in the first 5 years following radiation, as the patient's swallow is at risk to worsen due to long-term effects of radiation. Recommendations MBS: Yes Treatment Warranted: Yes Treatment Warranted: Dysphagia Progress Prognosis: Good Frequency Frequency: Every Other Week Additional (Frequency): Frequency to change during POC based on patient's changing needs for ST during and after radiation treatment. Duration: 12 Months Goals that are Established Determination:: Goals will be added/modified as deemed necessary and appropriate. Therapy will be discontinued when results of re-evaluation indicate therapy is no longer needed or lack of progress has been documented. Goal #1-5 Goal #1: The patient will consume least restrictive diet textures without overt s/s of aspiration with minimal verbal cues for use of compensatory strategies to decrease risk for aspiration. Goal #2: The patient will complete an oropharyngeal exercise program during and post radiation treatment independently to improve and maintain strength, ROM, and coordination of swallowing mechanism (X10 repetitions, 3-5X daily). Goal #3: The patient will participate in ongoing education re: short-term and long-term effects of chemoradiation treatment on swallow function and management of symptoms that contribute to dysphagia. Goal #4: The patient will participate in FEES/MBSS study to objectively assess swallow function and provide recommendations for safest, least restrictive diet and compensatory strategies to reduce risk for aspiration. Education Patient has Indicated that the Following Identified Educational Needs: None The Patient has indicated that they have no educational or learning abilities that may effect their care.: Yes Patient Instruction Patient Education: Diagnosis, Treatment Plan, Goals, Diet Level and Home Exercise Program Other Education: Education provided regarding the potential impacts of radiation treatment on swallow function during and post treatment, including effects such as mucositis, dysgeusia, radiation fibrosis, lymphedema, and disuse atrophy which may result in restricted range of motion and weakness of swallowing mechanism. Discussed impaired swallowing and increased risk for aspiration, aspiration related illnesses, weight loss, and malnutrition. Discussed importance for speech therapy to monitor and address dysphagia during and post radiation treatment to maintain optimal swallow function through continued education and prophylactic exercise program. Provided the patient a handout and demonstration of prophylactic oropharyngeal exercise program, as well as a jaw ROM exercise. The patient provided return demonstration with all exercises with minimal-moderate verbal cues and demonstration. The patient would benefit from continued training to monitor proper execution of exercises and encourage strict adherence to exercise program. Person Taught: Patient Teaching Method: Discussion, Demonstration, Handout and Teach back Response to teaching: Return demonstration, Verbalize understanding and Reinfor cement needed
--- NOTE | 2023-12-09 16:19 | SP.MBSS_ITS ---
Modified Barium Swallow Patient Information Study Date: 12/09/23 Study Time: 13:00 Diagnosis: Malignant poorly differentiated neuroendocrine tumors C7A.1 Referring Physician: Shmuel Cabello Reason for Referral: Objectively assess swallow function, assess risk for aspiration, and determine recommendations for least restrictive diet textures and compensatory strategies to improve safety of swallow. 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 From 07/01/2023 ? 08/13/2023 she completed definitive chemoradiation. BSE with JOURNEYMAN PIPEFITTER (06/24/2023) recommending regular textures / thin liquids. MBSS 07/04/2023 revealing oropharyngeal swallow function grossly WNL and recommending Regular textures / Thin liquids. She followed with ST during chemoradiation treatment to manage dysphagia. She did not schedule for additional ST after treatment as she reported to her radiation oncologist that swallowing was giving her little difficulty. Currently, the patient is 120lbs, which is ~49lbs of weight loss since the start of her chemoradiation treatment. She has severe xerostomia at night managed by 2 humidifiers at night, mild xerostomia otherwise. She has occasional vomiting. Moderate-severe hypogeusia. She uses baking soda and salt rinse 4-5X daily to manage her sore mouth, which is painful per patient report. JOURNEYMAN PIPEFITTER observed oral mucosa to be red. Patient feels she has unresolved thrush. JOURNEYMAN PIPEFITTER recommended addressing this concern with a physician. She is having difficulty swallowing most solid foods and feels they won't go down. She does consume lobster bisque with small pieces of meat. Otherwise, she consumes purees and liquids. She estimates consuming ~5-6 servings of food daily, 4 Boost, and >64oz of liquids daily. Other PMH: Anemia, Arthritis, Back pain, Former smoker, HTN, Malignant poorly differentiated neuroendocrine tumors, Neck abscess, Ocular proptosis, Primary cancer of paranasal sinus, Substance abuse, Thyroid disease, Wears dentures and glasses. Current Diet Ordered: Puree textures / Thin liquids Dentition: Natural Teeth and Missing Teeth Mental Status: WNL Respiratory Status: Oxygenating on Room Air Penetration-Aspiration Scale Penetration-Aspiration Scale: OBJECTIVE ASSESSMENT OF SWALLOW FUNCTION (QUANTITATIVE ? PER TRIAL): PENETRATION / ASPIRATION SCALE (VALERIO): 1 = does not enter airway 2 = enters airway/above vocal folds/ejected 3 = enters airway/above vocal folds/not ejected 4 = enters airway/contacts vocal folds/ejected 5 = enters airway/contacts vocal folds/not ejected 6 = enters airway/below vocal folds/ejected 7 = enters airway/below vocal folds/not ejected despite effort 8 = enters airway/below vocal folds/no effort VIDEOFLOROSCOPIC SCALE SCORE (VALERIO): Grade I = aspiration of material that has penetrated into the laryngeal vestibule, intact cough reflex Grade II = aspiration < 10 % of the bolus, intact cough reflex Grade III = aspiration of < 10 % of the bolus, reduced cough reflex or aspiration of > 10 % of the bolus, intact cough reflex Grade IV = aspiration of > 10 % of the bolus, reduced cough reflex Penetration-Aspiration Scale Score Thin Liquid via teaspoon: Result: 1= does not enter airway Thin Liquid via teaspoon Trial 2: Result: 1= does not enter airway Thin Liquid via small single sip: cup: Result: 1= does not enter airway Thin Liquid via sequential sips: cup: Result: 2= enter airway/above vocal folds/ejected Comment: Esophageal screen - Minimal retention in the upper esophagus. No Name Thick Liquid via small single sip: cup: Result: 1= does not enter airway Pharyngeal Phase Epiglottic Movement: Complete inversion Pharyngoesophageal Segment Opening: Parital distension and partial duration; parital obstruction of flow (pudding) Tongue Base Retraction: Narrow column of contrast between tongue base & post. pharyngeal wall Pharyngeal Residue: Collection of residue within or on pharyngeal structures Diagnosis/Impression Diagnosis: Mild-mod oropharyngeal dysphagia R13.12; Mild esophageal dysphagia R13.14 Recommendations Diet: Mechanical Soft Textures (Minced and Moist Textures) and Thin Liquids Compensatory Strategies: Small Bites, Small Sips, Alternate bites/solids and sips/liquids (1:1 ratio), Sitting upright and Remain sitting upright for 30 minutes after PO intake Recommend Repeat Modified Barium Swallow: Yes Comment: Plan for repeat MBSS in 6-12 months to continue to monitor swallow function s/p chemoradiation, as pt is at increased risk for worsening dysphagia and aspiration risk secondary to terminal operations manager effects of chemoradiation. Need for Skilled Speech Therapy Services: Yes Recommended Referrals: GI Consult and Dietitian Consult (Floorperson is following.) Education Completed: 1. Described result of evaluation., 2. Pt understands evaluation & agrees with goals and treatment plan. and 7. Pt requires further education on strategies & risks. Status Active ST Patient: Active Contact Information [facility] Speech Therapy:: Saige Shine M.A. CCC-JOURNEYMAN PIPEFITTER? Speech-Language Pathologist?? [facility] [address]?? [place] [address]?? [email or web address]?? [phone]
--- NOTE | 2023-12-17 17:05 | ST ---
[facility] Speech Pathology [address] [place] [address] Modified Barium Swallow Study MR#: [id number] Acct:[id number] Name: IMANI HENNING Rep #:[id number] : 1960 63 From: Saige Shine M.A., [facility]-HYDROLOGICAL TECHNICAL OFFICER Modified Barium Swallow Patient Information Study Date: 12/09/23 Study Time: 13:00 Direct Billable Minutes: 117 Total Minutes procedure & reportin Diagnosis: Malignant poorly differentiated neuroendocrine tumors C7A.1 Referring Physician: Shmuel Cabello Reason for Referral: Objectively assess swallow function, assess risk for aspiration, and determine recommendations for least restrictive diet textures and compensatory strategies to improve safety of swallow. 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 From 07/01/2023 ? 08/13/2023 she completed definitive chemoradiation. BSE with HYDROLOGICAL TECHNICAL OFFICER (06/24/2023) recommending regular textures / thin liquids. MBSS 07/04/2023 revealing oropharyngeal swallow function grossly WNL and recommending Regular textures / Thin liquids. She followed with ST during chemoradiation treatment to manage dysphagia. She did not schedule for additional ST after treatment as she reported to her radiation oncologist that swallowing was giving her little difficulty. Currently, the patient is 120lbs, which is ~49lbs of weight loss since the start of her chemoradiation treatment. She has severe xerostomia at night managed by 2 humidifiers at night, mild xerostomia otherwise. She has occasional vomiting. Moderate-severe hypogeusia. She uses baking soda and salt rinse 4-5X daily to manage her sore mouth, which is painful per patient report. HYDROLOGICAL TECHNICAL OFFICER observed oral mucosa to be red. Patient feels she has unresolved thrush. HYDROLOGICAL TECHNICAL OFFICER recommended addressing this concern with a physician. She is having difficulty swallowing most solid foods and feels they won't go down. She does consume lobster bisque with small pieces of meat. Otherwise, she consumes purees and liquids. She estimates consuming ~5-6 servings of food daily, 4 Boost, and >64oz of liquids daily. Other PMH: Anemia, Arthritis, Back pain, Former smoker, HTN, Malignant poorly differentiated neuroendocrine tumors, Neck abscess, Ocular proptosis, Primary cancer of paranasal sinus, Substance abuse, Thyroid disease, Wears dentures and glasses. Current Diet Ordered: Puree textures / Thin liquids Dentition: Natural Teeth and Missing Teeth Mental Status: WNL Respiratory Status: Oxygenating on Room Air Penetration-Aspiration Scale Penetration-Aspiration Scale: OBJECTIVE ASSESSMENT OF SWALLOW FUNCTION (QUANTITATIVE ? PER TRIAL): PENETRATION / ASPIRATION SCALE (VALERIO): 1 = does not enter airway 2 = enters airway/above vocal folds/ejected 3 = enters airway/above vocal folds/not ejected 4 = enters airway/contacts vocal folds/ejected 5 = enters airway/contacts vocal folds/not ejected 6 = enters airway/below vocal folds/ejected 7 = enters airway/below vocal folds/not ejected despite effort 8 = enters airway/below vocal folds/no effort VIDEOFLOROSCOPIC SCALE SCORE (VALERIO): Grade I = aspiration of material that has penetrated into the laryngeal vestibule, intact cough reflex Grade II = aspiration < 10 % of the bolus, intact cough reflex Grade III = aspiration of < 10 % of the bolus, reduced cough reflex or aspiration of > 10 % of the bolus, intact cough reflex Grade IV = aspiration of > 10 % of the bolus, reduced cough reflexPenetration-Aspiration Scale Score Thin Liquid via teaspoon: Result: 1= does not enter airway Thin Liquid via teaspoon Trial 2: Result: 1= does not enter airway Thin Liquid via small single sip: cup: Result: 1= does not enter airway Thin Liquid via sequential sips: cup: Result: 2= enter airway/above vocal folds/ejected Comment: Esophageal screen - Minimal retention in the upper esophagus. [place] Thick Liquid via small single sip: cup: Result: 1= does not enter airway Pudding via teaspoon: Result: 1= does not enter airway Comment: Esophageal screen - Mild retention of pudding in upper-mid esophagus. Thin Liquid via sequential sips:straw: Result: 1= does not enter airway Comment: Esophageal screen - Improved clearance of pudding from previous trial. Mild retention in upper-mid esophagus. 1/ Cookie: Result: 1= does not enter airway Comment: Esophageal screen - retention in the upper and lower esophagus. Retrograde flow of barium in lower esophagus. Thin Liquid via sequential sips:straw Trial 2: Result: 2= enter airway/above vocal folds/ejected Comment: Esophageal screen - improved clearance of barium retention of previous trial with minimal retention of barium remaining in the upper-mid esophagus. 08/08 Cookie with Thin liquid wash: Result: 2= enter airway/above vocal folds/ejected (thin liquid wash) Oral Phase Labial Seal: Interlabial escape, no progression to anterior lip Tongue Control During Bolus Hold: Posterior escape of less than half of bolus Bolus Preparation/Mastication: Slow prolonged chewing/mashing with complete recollection (Bolus fully chewed, but chewing was disorganized) Bolus Transport/Lingual Motion: Repetitive/disorganized tongue motion Oral Residue: Residue collection on oral structures Pharyngeal Phase Initiation of Pharyngeal Swallow: Bolus head at posterior laryngeal surgace of epiglottis Soft Palate Elevation: Trace column of contrast/air between soft palate and pharyngeal wall Laryngeal Elevation: Comp. Superior move thyroid cart w/comp. apprx arytenoid cart-epig pet Anterior Hyoid Excursion: Partial anterior movement Epiglottic Movement: Complete inversion Laryngeal Vestibule Closure at Height of Swallow: Incomplete; narrow column of air/contrast in laryngeal vestibule Pharyngeal Stripping Wave: Present - diminished Pharyngoesophageal Segment Opening: Parital distension and partial duration; parital obstruction of flow (pudding) Tongue Base Retraction: Narrow column of contrast between tongue base & post. pharyngeal wall Pharyngeal Residue: Collection of residue within or on pharyngeal structures Esophageal Phase Esophageal Clearance: Esophageal retention w/ retrograde flow below pharyngoesophageal seg. Diagnosis/Impression Diagnosis: Mild-mod oropharyngeal dysphagia R13.12; Mild esophageal dysphagia R13.14 Impression: The oral phase is primarily marked by... -Disorganized tongue motion manipulating cookie bolus for mastication with cookie, which appeared to adhere to the patient's oral cavity contributing to difficulty manipulating the bolus. -Piecemeal deglutition of cookie requiring 4 swallows to clear 1/4 Lory Doone from the oral cavity. The pharyngeal phase is primarily marked by... -Mild pharyngeal residue due to mildly decreased tongue base retraction, pharyngeal stripping wave, and UES opening/duration. -Mildly decreased anterior hyoid excursion; however, complete laryngeal elevation. Trace laryngeal penetration of liquids with full ejection. No aspiration. The esophageal phase is primarily marked by... -Retention of cookie and pudding in the esophagus, which mostly clears with thin liquid washes. Retrograde flow of cookie from the lower to mid esophagus. Recommendations Diet: Mechanical Soft Textures (Minced and Moist Textures) and Thin Liquids Compensatory Strategies: Small Bites, Small Sips, Alternate bites/solids and sips/liquids (1:1 ratio), Sitting upright and Remain sitting upright for 30 minutes after PO intake Recommend Repeat Modified Barium Swallow: Yes Comment: Plan for repeat MBSS in 6-12 months to continue to monitor swallow function s/p chemoradiation, as pt is at increased risk for worsening dysphagia and aspiration risk secondary to long term care pharmacist effects of chemoradiation. Need for Skilled Speech Therapy Services: Yes Comment: Will plan to resume dysphagia therapy to implement oropharyngeal strengthening, train in use of strategies to decrease risk for aspiration, and train in diet testing and preparation of recommended diet textures. HYDROLOGICAL TECHNICAL OFFICER informed AUTOMOTIVE TITLE CLERK, Abby Braun, and radiation oncologist, Dr. Cabello, of painful and red oral cavity, as well as occasional vomiting. RN, Ching, is setting up a patient visit with Dr. Cabello prior to dysphagia treatment session later this week. Recommended Referrals: GI Consult and Dietitian Consult Education Completed: 1. Described result of evaluation., 2. Pt understands evaluation & agrees with goals and treatment plan. and 7. Pt requires further education on strategies & risks. Status Active ST Patient: Active Contact Information [facility] Speech Therapy:: Saige Shine M.A. CCC-HYDROLOGICAL TECHNICAL OFFICER? Speech-Language Pathologist?? [facility] [address]?? [place] [address]? [phone] 12/10/23 0689 <Electronically signed by Saige Shine M.A. CCC-HYDROLOGICAL TECHNICAL OFFICER> Date/Time Saige Shine M.A. CCC-HYDROLOGICAL TECHNICAL OFFICER Co-Signature Required for all Medicare patients Date/Time Co-Signature
--- NOTE | 2023-12-19 08:35 | ST ---
[facility] Speech Pathology [address] [place] [address] Modified Barium Swallow Study MR#: [id number] Acct: [id number] Name: IMANI HENNING Rep #: [id number] : 1960 63 From: Saige Shine M.A., [facility]-TRIAGE LICENSED PRACTICAL NURSE Modified Barium Swallow Patient Information Study Date: 12/09/23 Study Time: 13:00 Direct Billable Minutes: 117 Total Minutes procedure & reportin Diagnosis: Malignant poorly differentiated neuroendocrine tumors C7A.1 Referring Physician: Shmuel Cabello Reason for Referral: Objectively assess swallow function, assess risk for aspiration, and determine recommendations for least restrictive diet textures and compensatory strategies to improve safety of swallow. 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 From 07/01/2023 ? 08/13/2023 she completed definitive chemoradiation. BSE with TRIAGE LICENSED PRACTICAL NURSE (06/24/2023) recommending regular textures / thin liquids. MBSS 07/04/2023 revealing oropharyngeal swallow function grossly WNL and recommending Regular textures / Thin liquids. She followed with ST during chemoradiation treatment to manage dysphagia. She did not schedule for additional ST after treatment as she reported to her radiation oncologist that swallowing was giving her little difficulty. Currently, the patient is 120lbs, which is ~49lbs of weight loss since the start of her chemoradiation treatment. She has severe xerostomia at night managed by 2 humidifiers at night, mild xerostomia otherwise. She has occasional vomiting. Moderate-severe hypogeusia. She uses baking soda and salt rinse 4-5X daily to manage her sore mouth, which is painful per patient report. TRIAGE LICENSED PRACTICAL NURSE observed oral mucosa to be red. Patient feels she has unresolved thrush. TRIAGE LICENSED PRACTICAL NURSE recommended addressing this concern with a physician. She is having difficulty swallowing most solid foods and feels they won't go down. She does consume lobster bisque with small pieces of meat. Otherwise, she consumes purees and liquids. She estimates consuming ~5-6 servings of food daily, 4 Boost, and >64oz of liquids daily. Other PMH: Anemia, Arthritis, Back pain, Former smoker, HTN, Malignant poorly differentiated neuroendocrine tumors, Neck abscess, Ocular proptosis, Primary cancer of paranasal sinus, Substance abuse, Thyroid disease, Wears dentures and glasses. Current Diet Ordered: Puree textures / Thin liquids Dentition: Natural Teeth and Missing Teeth Mental Status: WNL Respiratory Status: Oxygenating on Room Air Penetration-Aspiration Scale Penetration-Aspiration Scale: OBJECTIVE ASSESSMENT OF SWALLOW FUNCTION (QUANTITATIVE ? PER TRIAL): PENETRATION / ASPIRATION SCALE (VALERIO): 1 = does not enter airway 2 = enters airway/above vocal folds/ejected 3 = enters airway/above vocal folds/not ejected 4 = enters airway/contacts vocal folds/ejected 5 = enters airway/contacts vocal folds/not ejected 6 = enters airway/below vocal folds/ejected 7 = enters airway/below vocal folds/not ejected despite effort 8 = enters airway/below vocal folds/no effort VIDEOFLOROSCOPIC SCALE SCORE (VALERIO): Grade I = aspiration of material that has penetrated into the laryngeal vestibule, intact cough reflex Grade II = aspiration < 10 % of the bolus, intact cough reflex Grade III = aspiration of < 10 % of the bolus, reduced cough reflex or aspiration of > 10 % of the bolus, intact cough reflex Grade IV = aspiration of > 10 % of the bolus, reduced cough reflexPenetration-Aspiration Scale Score Thin Liquid via teaspoon: Result: 1= does not enter airway Thin Liquid via teaspoon Trial 2: Result: 1= does not enter airway Thin Liquid via small single sip: cup: Result: 1= does not enter airway Thin Liquid via sequential sips: cup: Result: 2= enter airway/above vocal folds/ejected Comment: Esophageal screen - Minimal retention in the upper esophagus. [place] Thick Liquid via small single sip: cup: Result: 1= does not enter airway Pudding via teaspoon: Result: 1= does not enter airway Comment: Esophageal screen - Mild retention of pudding in upper-mid esophagus. Thin Liquid via sequential sips:straw: Result: 1= does not enter airway Comment: Esophageal screen - Improved clearance of pudding from previous trial. Mild retention in upper-mid esophagus. 1/ Cookie: Result: 1= does not enter airway Comment: Esophageal screen - retention in the upper and lower esophagus. Retrograde flow of barium in lower esophagus. Thin Liquid via sequential sips:straw Trial 2: Result: 2= enter airway/above vocal folds/ejected Comment: Esophageal screen - improved clearance of barium retention of previous trial with minimal retention of barium remaining in the upper-mid esophagus. 08/08 Cookie with Thin liquid wash: Result: 2= enter airway/above vocal folds/ejected (thin liquid wash) Oral Phase Labial Seal: Interlabial escape, no progression to anterior lip Tongue Control During Bolus Hold: Posterior escape of less than half of bolus Bolus Preparation/Mastication: Slow prolonged chewing/mashing with complete recollection (Bolus fully chewed, but chewing was disorganized) Bolus Transport/Lingual Motion: Repetitive/disorganized tongue motion Oral Residue: Residue collection on oral structures Pharyngeal Phase Initiation of Pharyngeal Swallow: Bolus head at posterior laryngeal surgace of epiglottis Soft Palate Elevation: Trace column of contrast/air between soft palate and pharyngeal wall Laryngeal Elevation: Comp. Superior move thyroid cart w/comp. apprx arytenoid cart-epig pet Anterior Hyoid Excursion: Partial anterior movement Epiglottic Movement: Complete inversion Laryngeal Vestibule Closure at Height of Swallow: Incomplete; narrow column of air/contrast in laryngeal vestibule Pharyngeal Stripping Wave: Present - diminished Pharyngoesophageal Segment Opening: Parital distension and partial duration; parital obstruction of flow (pudding) Tongue Base Retraction: Narrow column of contrast between tongue base & post. pharyngeal wall Pharyngeal Residue: Collection of residue within or on pharyngeal structures Esophageal Phase Esophageal Clearance: Esophageal retention w/ retrograde flow below pharyngoesophageal seg. Diagnosis/Impression Diagnosis: Mild-mod oropharyngeal dysphagia R13.12; Mild esophageal dysphagia R13.14 Impression: The oral phase is primarily marked by... -Disorganized tongue motion manipulating cookie bolus for mastication with cookie, which appeared to adhere to the patient's oral cavity contributing to difficulty manipulating the bolus. -Piecemeal deglutition of cookie requiring 4 swallows to clear 1/4 Lory Doone from the oral cavity. The pharyngeal phase is primarily marked by... -Mild pharyngeal residue due to mildly decreased tongue base retraction, pharyngeal stripping wave, and UES opening/duration. -Mildly decreased anterior hyoid excursion; however, complete laryngeal elevation. Trace laryngeal penetration of liquids with full ejection. No aspiration. The esophageal phase is primarily marked by... -Retention of cookie and pudding in the esophagus, which mostly clears with thin liquid washes. Retrograde flow of cookie from the lower to mid esophagus. Recommendations Diet: Mechanical Soft Textures (Minced and Moist Textures) and Thin Liquids Compensatory Strategies: Small Bites, Small Sips, Alternate bites/solids and sips/liquids (1:1 ratio), Sitting upright and Remain sitting upright for 30 minutes after PO intake Recommend Repeat Modified Barium Swallow: Yes Comment: Plan for repeat MBSS in 6-12 months to continue to monitor swallow function s/p chemoradiation, as pt is at increased risk for worsening dysphagia and aspiration risk secondary to fpc effects of chemoradiation. Need for Skilled Speech Therapy Services: Yes Comment: Will plan to resume dysphagia therapy to implement oropharyngeal strengthening, train in use of strategies to decrease risk for aspiration, and train in diet testing and preparation of recommended diet textures. TRIAGE LICENSED PRACTICAL NURSE informed SENIOR IT ENGINEER, Abby Braun, and radiation oncologist, Dr. Cabello, of painful and red oral cavity, as well as occasional vomiting. RN, Ching, is setting up a patient visit with Dr. Cabello prior to dysphagia treatment session later this week. Recommended Referrals: GI Consult and Dietitian Consult Education Completed: 1. Described result of evaluation., 2. Pt understands evaluation & agrees with goals and treatment plan. and 7. Pt requires further education on strategies & risks. Status Active ST Patient: Active Contact Information [facility] Speech Therapy:: Saige Shine M.A. CCC-TRIAGE LICENSED PRACTICAL NURSE? Speech-Language Pathologist?? [facility] [address]?? [place] [address]?? [email or web address]?? [phone] 12/10/23 6811 <Electronically signed by Saige Shine M.A. CCC-TRIAGE LICENSED PRACTICAL NURSE> Date/Time Saige Shine M.A. CCC-TRIAGE LICENSED PRACTICAL NURSE Co-Signature Required for all Medicare patients Date/Time Co-Signature CC: ~
--- NOTE | 2023-12-19 09:15 | HP.SP.REEV ---
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 From 07/01/2023 ? 08/13/2023 she completed definitive chemoradiation. BSE with HOOP EXPANDER (06/24/2023) recommending regular textures / thin liquids. MBSS 07/04/2023 revealing oropharyngeal swallow function grossly WNL and recommending Regular textures / Thin liquids. She followed with ST during chemoradiation treatment to manage dysphagia. She did not schedule for additional ST after treatment as she reported to her radiation oncologist that swallowing was giving her little difficulty. Currently, the patient is 118lbs, which is ~51lbs of weight loss since the start of her chemoradiation treatment. She has severe xerostomia at night managed by 2 humidifiers at night, mild xerostomia otherwise. She has occasional vomiting. Moderate-severe hypogeusia. She uses baking soda and salt rinse 4-5X daily to manage her sore mouth, which is painful per patient report. HOOP EXPANDER observed oral mucosa to be red. Patient feels she has unresolved thrush. HOOP EXPANDER recommended addressing this concern with a physician. She is having difficulty swallowing most solid foods and feels they won't go down. She does consume lobster bisque with small pieces of meat. Otherwise, she consumes purees and liquids. She estimates consuming ~5-6 servings of food daily, 4 Boost, and >64oz of liquids daily. MBSS 12/09/23 revealed mild-moderate oropharyngeal dysphagia and esophageal dysphagia and recommended minced and moist textures / thin liquids with use of aspiration precautions. She is recommended for continued dysphagia therapy as an [facility] at [facility]. Other PMH: Anemia, Arthritis, Back pain, Former smoker, HTN, Malignant poorly differentiated neuroendocrine tumors, Neck abscess, Ocular proptosis, Primary cancer of paranasal sinus, Substance abuse, Thyroid disease, Wears dentures and glasses. Smoking Status: Former smoker Diagnosis Diagnosis: Malignant poorly differentiated neuroendocrine tumors C7A.1 Pain Is pain an issue with your current prescribed condition?: No Personal Preferred language: Nepali Patient Allergies Allergies Allergies: Allergies No Known Allergies Allergy (Verified 12/17/23 10:38) Previous/Current Goals Goals 1-5 Previous Goal #1: The patient will consume least restrictive diet textures without overt s/s of aspiration with minimal verbal cues for use of compensatory strategies to decrease risk for aspiration. Goal 1 Status: Limited progress - Patient consumes a limited variety of oral intake - only consuming purees, limited soft solids (e.g. lobster bisque soup), and liquids due to oropharyngeal and esophageal dysphagia. Previous Goal #2: The patient will complete an oropharyngeal exercise program during and post radiation treatment independently to improve and maintain strength, ROM, and coordination of swallowing mechanism (X10 repetitions, 3-5X daily). Goal 2 Status: ON HOLD - Goal on hold until patient is able to consume more normal oral intake. HOOP EXPANDER has instructed the patient to prioritize swallowing for consuming calories and nutrition. Previous Goal #3: The patient will participate in ongoing education re: short-term and long-term effects of chemoradiation treatment on swallow function and management of symptoms that contribute to dysphagia. Goal 3 Status: PROGRESSING - Patient has been thoroughly educated in short-term and long-term effects of chemoradiation treatment that negatively impacts swallow function, especially disuse atrophy and risk for radiation fibrosis. Previous Goal #4: The patient will participate in FEES/MBSS study to objectively assess swallow function and provide recommendations for safest, least restrictive diet and compensatory strategies to reduce risk for aspiration. Goal 4 Status: PROGRESSING - Next MBSS planned for 6-12 months since previous MBSS (12/09/23). Modified Barium Results Hx If Applicable Enter into a NOTE MBS Report Entered: Yes MBS Results (from prior exam): 12/19/23 08:35 Speech Therapy by Saige Shine [facility] Speech Pathology [address] [place] [address] Modified Barium Swallow Study MR#: [id number] Acct: [id number] Name: IMANI HENNING Rep #: [id number] : 1960 63 From: Saige Shine M.A., [facility] Modified Barium Swallow Patient Information Study Date: 12/09/23 Study Time: 13:00 Direct Billable Minutes: 117 Total Minutes procedure & reportin Diagnosis: Malignant poorly differentiated neuroendocrine tumors C7A.1 Referring Physician: Shmuel Cabello Reason for Referral: Objectively assess swallow function, assess risk for aspiration, and determine recommendations for least restrictive diet textures and compensatory strategies to improve safety of swallow. 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 From 07/01/2023 ? 08/13/2023 she completed definitive chemoradiation. BSE with HOOP EXPANDER (06/24/2023) recommending regular textures / thin liquids. MBSS 07/04/2023 revealing oropharyngeal swallow function grossly WNL and recommending Regular textures / Thin liquids. She followed with ST during chemoradiation treatment to manage dysphagia. She did not schedule for additional ST after treatment as she reported to her radiation oncologist that swallowing was giving her little difficulty. Currently, the patient is 120lbs, which is ~49lbs of weight loss since the start of her chemoradiation treatment. She has severe xerostomia at night managed by 2 humidifiers at night, mild xerostomia otherwise. She has occasional vomiting. Moderate-severe hypogeusia. She uses baking soda and salt rinse 4-5X daily to manage her sore mouth, which is painful per patient report. HOOP EXPANDER observed oral mucosa to be red. Patient feels she has unresolved thrush. HOOP EXPANDER recommended addressing this concern with a physician. She is having difficulty swallowing most solid foods and feels they won't go down. She does consume lobster bisque with small pieces of meat. Otherwise, she consumes purees and liquids. She estimates consuming ~5-6 servings of food daily, 4 Boost, and >64oz of liquids daily. Other PMH: Anemia, Arthritis, Back pain, Former smoker, HTN, Malignant poorly differentiated neuroendocrine tumors, Neck abscess, Ocular proptosis, Primary cancer of paranasal sinus, Substance abuse, Thyroid disease, Wears dentures and glasses. Current Diet Ordered: Puree textures / Thin liquids Dentition: Natural Teeth and Missing Teeth Mental Status: WNL Respiratory Status: Oxygenating on Room Air Penetration-Aspiration Scale Penetration-Aspiration Scale: OBJECTIVE ASSESSMENT OF SWALLOW FUNCTION (QUANTITATIVE ? PER TRIAL): PENETRATION / ASPIRATION SCALE (VALERIO): 1 = does not enter airway 2 = enters airway/above vocal folds/ejected 3 = enters airway/above vocal folds/not ejected 4 = enters airway/contacts vocal folds/ejected 5 = enters airway/contacts vocal folds/not ejected 6 = enters airway/below vocal folds/ejected 7 = enters airway/below vocal folds/not ejected despite effort 8 = enters airway/below vocal folds/no effort VIDEOFLOROSCOPIC SCALE SCORE (VALERIO): Grade I = aspiration of material that has penetrated into the laryngeal vestibule, intact cough reflex Grade II = aspiration < 10 % of the bolus, intact cough reflex Grade III = aspiration of < 10 % of the bolus, reduced cough reflex or aspiration of > 10 % of the bolus, intact cough reflex Grade IV = aspiration of > 10 % of the bolus, reduced cough reflexPenetration-Aspiration Scale Score Thin Liquid via teaspoon: Result: 1= does not enter airway Thin Liquid via teaspoon Trial 2: Result: 1= does not enter airway Thin Liquid via small single sip: cup: Result: 1= does not enter airway Thin Liquid via sequential sips: cup: Result: 2= enter airway/above vocal folds/ejected Comment: Esophageal screen - Minimal retention in the upper esophagus. [place] Thick Liquid via small single sip: cup: Result: 1= does not enter airway Pudding via teaspoon: Result: 1= does not enter airway Comment: Esophageal screen - Mild retention of pudding in upper-mid esophagus. Thin Liquid via sequential sips:straw: Result: 1= does not enter airway Comment: Esophageal screen - Improved clearance of pudding from previous trial. Mild retention in upper-mid esophagus. 08/08 Cookie: Result: 1= does not enter airway Comment: Esophageal screen - retention in the upper and lower esophagus. Retrograde flow of barium in lower esophagus. Thin Liquid via sequential sips:straw Trial 2: Result: 2= enter airway/above vocal folds/ejected Comment: Esophageal screen - improved clearance of barium retention of previous trial with minimal retention of barium remaining in the upper-mid esophagus. 1/4 Cookie with Thin liquid wash: Result: 2= enter airway/above vocal folds/ejected (thin liquid wash) Oral Phase Labial Seal: Interlabial escape, no progression to anterior lip Tongue Control During Bolus Hold: Posterior escape of less than half of bolus Bolus Preparation/Mastication: Slow prolonged chewing/mashing with complete recollection (Bolus fully chewed, but chewing was disorganized) Bolus Transport/Lingual Motion: Repetitive/disorganized tongue motion Oral Residue: Residue collection on oral structures Pharyngeal Phase Initiation of Pharyngeal Swallow: Bolus head at posterior laryngeal surgace of epiglottis Soft Palate Elevation: Trace column of contrast/air between soft palate and pharyngeal wall Laryngeal Elevation: Comp. Superior move thyroid cart w/comp. apprx arytenoid cart-epig pet Anterior Hyoid Excursion: Partial anterior movement Epiglottic Movement: Complete inversion Laryngeal Vestibule Closure at Height of Swallow: Incomplete; narrow column of air/contrast in laryngeal vestibule Pharyngeal Stripping Wave: Present - diminished Pharyngoesophageal Segment Opening: Parital distension and partial duration; parital obstruction of flow (pudding) Tongue Base Retraction: Narrow column of contrast between tongue base & post. pharyngeal wall Pharyngeal Residue: Collection of residue within or on pharyngeal structures Esophageal Phase Esophageal Clearance: Esophageal retention w/ retrograde flow below pharyngoesophageal seg. Diagnosis/Impression Diagnosis: Mild-mod oropharyngeal dysphagia R13.12; Mild esophageal dysphagia R13.14 Impression: The oral phase is primarily marked by... -Disorganized tongue motion manipulating cookie bolus for mastication with cookie, which appeared to adhere to the patient's oral cavity contributing to difficulty manipulating the bolus. -Piecemeal deglutition of cookie requiring 4 swallows to clear 1/4 Lory Doone from the oral cavity. The pharyngeal phase is primarily marked by... -Mild pharyngeal residue due to mildly decreased tongue base retraction, pharyngeal stripping wave, and UES opening/duration. -Mildly decreased anterior hyoid excursion; however, complete laryngeal elevation. Trace laryngeal penetration of liquids with full ejection. No aspiration. The esophageal phase is primarily marked by... -Retention of cookie and pudding in the esophagus, which mostly clears with thin liquid washes. Retrograde flow of cookie from the lower to mid esophagus. 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 Need for Skilled Speech Therapy Services: Yes Comment: Will plan to resume dysphagia therapy to implement oropharyngeal strengthening, train in use of strategies to decrease risk for aspiration, and train in diet testing and preparation of recommended diet textures. HOOP EXPANDER informed CAR AND YARD SUPERVISOR, Abby Braun, and radiation oncologist, Dr. Cabello, of painful and red oral cavity, as well as occasional vomiting. RN, Ching, is setting up a patient visit with Dr. Cabello prior to dysphagia treatment session later this week. Recommended Referrals: GI Consult and Dietitian Consult Education Completed: 1. Described result of evaluation., 2. Pt understands evaluation & agrees with goals and treatment plan. and 7. Pt requires further education on strategies & risks. Status Active ST Patient: Active Contact Information [facility] Speech Therapy:: Saige Shine M.A. CCC-HOOP EXPANDER? Speech-Language Pathologist?? [place] [id number]?? [place] [address]?? [email or web address]?? [phone] 12/10/23 1045 <Electronically signed by Saige Shine M.A. CCC-HOOP EXPANDER> Date/Time Saige Shine M.A. CCC-HOOP EXPANDER Co-Signature Required for all Medicare patients Date/Time Co-Signature CC: ~ Initialized on 12/19/23 08:35 - END OF NOTE Swallowing Performance Scale Swallowing Performance Scale Swallowing Performance Scale Result: 4 Mild to Moderate Reference: Neuro-QoL instrument Radiation Oncology Patient FOIS Functional Oral Intake Scale Total oral diet with multiple consistencies, but requiring special preparation or compensations: Level 5 Plan Plan Plan: Will recommend continued dysphagia therapy services as the patient is at risk for continued weight loss, malnutrition, worsening dysphagia s/p chemoradiation, as well as increased risk for aspiration. POC to include diet texture preparation and management with education re: strategies to decrease risk for oral intake. Will instruct in selecting textures to optimize amount of oral intake consumed to decrease risk for continued weight loss and worsening malnutrition. Once patient has resumed adequate oral intake, will implement oropharyngeal exercise program to decrease risk for aspiration. Recommendations MBS: Yes Treatment Warranted: Yes Treatment Warranted: Dysphagia Comment: Repeat MBSS/FEES 6-12 months after previous MBSS (12/09/23). Progress Prognosis: Fair Frequency Frequency: Every Other Week Additional (Frequency): Frequency to change during POC based on patient's changing needs for ST during and after radiation treatment. Duration: 12 Months Goals that are Established Determination:: Goals will be added/modified as deemed necessary and appropriate. Therapy will be discontinued when results of re-evaluation indicate therapy is no longer needed or lack of progress has been documented. Goal #1-5 Goal #1: The patient will consume least restrictive diet textures without overt s/s of aspiration with minimal verbal cues for use of compensatory strategies to decrease risk for aspiration. Goal #2: The patient will participate in ongoing education re: long-term effects of chemoradiation treatment on swallow function and management of symptoms that contribute to dysphagia. Goal #3: The patient will complete an oropharyngeal exercise program X10-15 reps, 3-5X daily with minimal verbal cues to improve strength, ROM, and coordination of swallowing mechanism. Goal #4: The patient will participate in MBS study to objectively assess swallow function and provide recommendations for safest, least restrictive diet and compensatory strategies to reduce risk for aspiration.
--- NOTE | 2024-03-12 13:51 | NS ---
03/12/24: RD called pt and left voicemail. Encouraged to call with questions or concerns. Alexus Gipson RDN, LD
--- NOTE | 2024-03-12 16:22 | HP.SPREEV_ITS ---
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 From 07/01/2023 ? 08/13/2023 she completed definitive chemoradiation. BSE with INSTRUMENT AND ELECTRICAL TECHNICIAN (06/24/2023) recommending regular textures / thin liquids. MBSS 07/04/2023 revealing oropharyngeal swallow function grossly WNL and recommending Regular textures / Thin liquids. She followed with ST during chemoradiation treatment to manage dysphagia. She did not schedule for additional ST after treatment as she reported to her radiation oncologist that swallowing was giving her little difficulty. MBSS 12/09/23 revealed mild-moderate oropharyngeal dysphagia and esophageal dysphagia and recommended minced and moist textures / thin liquids with use of aspiration precautions. She has participated in continued dysphagia therapy as an OP at [facility] for training in diet texture preparation, strategies to decrease risk for aspiration, and implementing oropharyngeal exercise program. Currently, the patient is 108lbs, which is ~61lbs of weight loss since the start of her chemoradiation treatment. She is currently consuming a soft solid diet / thin liquids with 4-5 boost daily. She has consulted with the dehydration unit operator and feels she is greatly exceeding her recommended caloric intake; however, she continues to have weight loss. ENT suspects malabsorption per patient. INSTRUMENT AND ELECTRICAL TECHNICIAN recommended GI consult from MBSS 12/09/23, and the patient is planned for upper GI late March 2024. She has mild-moderate xerostomia. Moderate-severe hypogeusia. She uses baking soda and salt rinse. Patient has yellowish-white coating on her tongue, which is painful - INSTRUMENT AND ELECTRICAL TECHNICIAN recommended she see a physician regarding these symptoms. Other PMH: Anemia, Arthritis, Back pain, Former smoker, HTN, Malignant poorly differentiated neuroendocrine tumors, Neck abscess, Ocular proptosis, Primary cancer of paranasal sinus, Substance abuse, Thyroid disease, Wears dentures and glasses. Smoking Status: Former smoker Diagnosis Diagnosis: Malignant poorly differentiated neuroendocrine tumors C7A.1 Pain Is pain an issue with your current prescribed condition?: Yes Pain Tongue pain: Current Pain Intensity: 5 (When completing Taina exercise - exercise on hold until patient speaks w/ physician re: tongue pain and yellowish, whitish coating on tongue) Personal Preferred language: Greek Patient Allergies Allergies Allergies: Allergies No Known Allergies Allergy (Verified 02/17/24 08:41) Previous/Current Goals Goals 1-5 Previous Goal #1: The patient will consume least restrictive diet textures without overt s/s of aspiration with minimal verbal cues for use of compensatory strategies to decrease risk for aspiration. Goal 1 Status: Progressing - Pt is tolerating Easy to chew textures / thin liquids with minimal verbal cues for use of strategies to decrease aspiration risk. Min coughing during most recent ST session with thin liquids. Previous Goal #2: The patient will participate in ongoing education re: long- term effects of chemoradiation treatment on swallow function and management of symptoms that contribute to dysphagia. Goal 2 Status: Progressing - Recommend continued education re: long-term effects of chemoradiation treatment on swallow function in order to encourage good adherence to home oropharyngeal exercise program. Previous Goal #3: The patient will complete an oropharyngeal exercise program X10-15 reps, 3-5X daily with minimal verbal cues to improve strength, ROM, and coordination of swallowing mechanism. Goal 3 Status: Progressing - Patient executes return demonstration of Taina, effortful swallows, and Erasto with minimal-moderate verbal and visual cues. Patient requires continued training in oropharyngeal exercises to promote improved tongue base retraction, pharyngeal contraction, and airway closure during the swallow. Previous Goal #4: The patient will participate in MBS study to objectively assess swallow function and provide recommendations for safest, least restrictive diet and compensatory strategies to reduce risk for aspiration. Goal 4 Status: Progressing - Next MBSS planned 12/2024 to monitor risk for worsening dysphagia s/p chemoradiation treatment. Modified Barium Results Hx If Applicable Enter into a NOTE MBS Report Entered: Yes MBS Results (from prior exam): 12/19/23 08:35 Speech Therapy by Saige Shine [facility] Speech Pathology [address] [place] [address] Modified Barium Swallow Study MR#: [id number] Acct: [id number] Name: IMANI HENNING Rep #: [id number] : 1960 63 From: Saige Shine M.A., [facility]-INSTRUMENT AND ELECTRICAL TECHNICIAN Modified Barium Swallow Patient Information Study Date: 12/09/23 Study Time: 13:00 Direct Billable Minutes: 117 Total Minutes procedure & reportin Diagnosis: Malignant poorly differentiated neuroendocrine tumors C7A.1 Referring Physician: Shmuel Cabello Reason for Referral: Objectively assess swallow function, assess risk for aspiration, and determine recommendations for least restrictive diet textures and compensatory strategies to improve safety of swallow. 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 From 07/01/2023 ? 08/13/2023 she completed definitive chemoradiation. BSE with INSTRUMENT AND ELECTRICAL TECHNICIAN (06/24/2023) recommending regular textures / thin liquids. MBSS 07/04/2023 revealing oropharyngeal swallow function grossly WNL and recommending Regular textures / Thin liquids. She followed with ST during chemoradiation treatment to manage dysphagia. She did not schedule for additional ST after treatment as she reported to her radiation oncologist that swallowing was giving her little difficulty. Currently, the patient is 120lbs, which is ~49lbs of weight loss since the start of her chemoradiation treatment. She has severe xerostomia at night managed by 2 humidifiers at night, mild xerostomia otherwise. She has occasional vomiting. Moderate-severe hypogeusia. She uses baking soda and salt rinse 4-5X daily to manage her sore mouth, which is painful per patient report. INSTRUMENT AND ELECTRICAL TECHNICIAN observed oral mucosa to be red. Patient feels she has unresolved thrush. INSTRUMENT AND ELECTRICAL TECHNICIAN recommended addressing this concern with a physician. She is having difficulty swallowing most solid foods and feels they won't go down. She does consume lobster bisque with small pieces of meat. Otherwise, she consumes purees and liquids. She estimates consuming ~5-6 servings of food daily, 4 Boost, and >64oz of liquids daily. Other PMH: Anemia, Arthritis, Back pain, Former smoker, HTN, Malignant poorly differentiated neuroendocrine tumors, Neck abscess, Ocular proptosis, Primary cancer of paranasal sinus, Substance abuse, Thyroid disease, Wears dentures and glasses. Current Diet Ordered: Puree textures / Thin liquids Dentition: Natural Teeth and Missing Teeth Mental Status: WNL Respiratory Status: Oxygenating on Room Air Penetration-Aspiration Scale Penetration-Aspiration Scale: OBJECTIVE ASSESSMENT OF SWALLOW FUNCTION (QUANTITATIVE ? PER TRIAL): PENETRATION / ASPIRATION SCALE (VALERIO): 1 = does not enter airway 2 = enters airway/above vocal folds/ejected 3 = enters airway/above vocal folds/not ejected 4 = enters airway/contacts vocal folds/ejected 5 = enters airway/contacts vocal folds/not ejected 6 = enters airway/below vocal folds/ejected 7 = enters airway/below vocal folds/not ejected despite effort 8 = enters airway/below vocal folds/no effort VIDEOFLOROSCOPIC SCALE SCORE (VALERIO): Grade I = aspiration of material that has penetrated into the laryngeal vestibule, intact cough reflex Grade II = aspiration < 10 % of the bolus, intact cough reflex Grade III = aspiration of < 10 % of the bolus, reduced cough reflex or aspiration of > 10 % of the bolus, intact cough reflex Grade IV = aspiration of > 10 % of the bolus, reduced cough reflexPenetration- Aspiration Scale Score Thin Liquid via teaspoon: Result: 1= does not enter airway Thin Liquid via teaspoon Trial 2: Result: 1= does not enter airway Thin Liquid via small single sip: cup: Result: 1= does not enter airway Thin Liquid via sequential sips: cup: Result: 2= enter airway/above vocal folds/ejected Comment: Esophageal screen - Minimal retention in the upper esophagus. Indios Thick Liquid via small single sip: cup: Result: 1= does not enter airway Pudding via teaspoon: Result: 1= does not enter airway Comment: Esophageal screen - Mild retention of pudding in upper-mid esophagus. Thin Liquid via sequential sips:straw: Result: 1= does not enter airway Comment: Esophageal screen - Improved clearance of pudding from previous trial. Mild retention in upper-mid esophagus. 08/08 Cookie: Result: 1= does not enter airway Comment: Esophageal screen - retention in the upper and lower esophagus. Retrograde flow of barium in lower esophagus. Thin Liquid via sequential sips:straw Trial 2: Result: 2= enter airway/above vocal folds/ejected Comment: Esophageal screen - improved clearance of barium retention of previous trial with minimal retention of barium remaining in the upper-mid esophagus. 1/4 Cookie with Thin liquid wash: Result: 2= enter airway/above vocal folds/ejected (thin liquid wash) Oral Phase Labial Seal: Interlabial escape, no progression to anterior lip Tongue Control During Bolus Hold: Posterior escape of less than half of bolus Bolus Preparation/Mastication: Slow prolonged chewing/mashing with complete recollection (Bolus fully chewed, but chewing was disorganized) Bolus Transport/Lingual Motion: Repetitive/disorganized tongue motion Oral Residue: Residue collection on oral structures Pharyngeal Phase Initiation of Pharyngeal Swallow: Bolus head at posterior laryngeal surgace of epiglottis Soft Palate Elevation: Trace column of contrast/air between soft palate and pharyngeal wall Laryngeal Elevation: Comp. Superior move thyroid cart w/comp. apprx arytenoid cart-epig pet Anterior Hyoid Excursion: Partial anterior movement Epiglottic Movement: Complete inversion Laryngeal Vestibule Closure at Height of Swallow: Incomplete; narrow column of air/contrast in laryngeal vestibule Pharyngeal Stripping Wave: Present - diminished Pharyngoesophageal Segment Opening: Parital distension and partial duration; parital obstruction of flow (pudding) Tongue Base Retraction: Narrow column of contrast between tongue base & post. pharyngeal wall Pharyngeal Residue: Collection of residue within or on pharyngeal structures Esophageal Phase Esophageal Clearance: Esophageal retention w/ retrograde flow below pharyngoesophageal seg. Diagnosis/Impression Diagnosis: Mild-mod oropharyngeal dysphagia R13.12; Mild esophageal dysphagia R13.14 Impression: The oral phase is primarily marked by... -Disorganized tongue motion manipulating cookie bolus for mastication with cookie, which appeared to adhere to the patient's oral cavity contributing to difficulty manipulating the bolus. -Piecemeal deglutition of cookie requiring 4 swallows to clear 1/4 Lory Doone from the oral cavity. The pharyngeal phase is primarily marked by... -Mild pharyngeal residue due to mildly decreased tongue base retraction, pharyngeal stripping wave, and UES opening/duration. -Mildly decreased anterior hyoid excursion; however, complete laryngeal elevation. Trace laryngeal penetration of liquids with full ejection. No aspiration. The esophageal phase is primarily marked by... -Retention of cookie and pudding in the esophagus, which mostly clears with thin liquid washes. Retrograde flow of cookie from the lower to mid esophagus. Recommendations Diet: Mechanical Soft Textures (Minced and Moist Textures) and Thin Liquids Compensatory Strategies: Small Bites, Small Sips, Alternate bites/solids and sips/liquids (1:1 ratio), Sitting upright and Remain sitting upright for 30 minutes after PO intake Recommend Repeat Modified Barium Swallow: Yes Comment: Plan for repeat MBSS in 6-12 months to continue to monitor swallow function s/p chemoradiation, as pt is at increased risk for worsening dysphagia and aspiration risk secondary to terminal block assembler effects of chemoradiation. Need for Skilled Speech Therapy Services: Yes Comment: Will plan to resume dysphagia therapy to implement oropharyngeal strengthening, train in use of strategies to decrease risk for aspiration, and train in diet testing and preparation of recommended diet textures. INSTRUMENT AND ELECTRICAL TECHNICIAN informed PIN SETTER, Abby Braun, and radiation oncologist, Dr. Cabello, of painful and red oral cavity, as well as occasional vomiting. RN, Ching, is setting up a patient visit with Dr. Cabello prior to dysphagia treatment session later this week. Recommended Referrals: GI Consult and Dietitian Consult Education Completed: 1. Described result of evaluation., 2. Pt understands evaluation & agrees with goals and treatment plan. and 7. Pt requires further education on strategies & risks. Status Active ST Patient: Active Contact Information [facility] Speech Therapy:: Saige Shine M.A. CCC-INSTRUMENT AND ELECTRICAL TECHNICIAN? Speech-Language Pathologist?? [address] [place]?? [place] [address]?? [email or web address]?? [phone] 12/10/23 1045 <Electronically signed by Saige Shine M.A., CCC-INSTRUMENT AND ELECTRICAL TECHNICIAN> Date/Time Saige Shine M.A. CCC-INSTRUMENT AND ELECTRICAL TECHNICIAN Co-Signature Required for all Medicare patients Date/Time Co-Signature CC: ~ Initialized on 12/19/23 08:35 - END OF NOTE Swallowing Performance Scale Swallowing Performance Scale Swallowing Performance Scale Result: 4 Mild to Moderate Reference: Neuro-QoL instrument Radiation Oncology Patient FOIS Functional Oral Intake Scale Total oral diet with multiple consistencies, but requiring special preparation or compensations: Level 5 Plan Plan Plan: Will recommend continued dysphagia therapy services as the patient is at risk for continued weight loss, malnutrition, worsening dysphagia s/p chemoradiation, as well as increased risk for aspiration. POC to include education re: strategies to decrease risk for oral intake, terminal block assembler effects of chemoradiation on swallow function, as well as continued instruction in oropharyngeal exercise program. Recommendations MBS: Yes Treatment Warranted: Yes Treatment Warranted: Dysphagia Comment: Repeat MBSS/FEES 6-12 months after previous MBSS (12/09/23). Progress Prognosis: Good Frequency Frequency: Monthly Duration: 4-6 Months Goals that are Established Determination:: Goals will be added/modified as deemed necessary and appr opriate. Therapy will be discontinued when results of re-evaluation indicate therapy is no longer needed or lack of progress has been documented. Goal #1-5 Goal #1: The patient will consume least restrictive diet textures without overt s/s of aspiration with minimal verbal cues for use of compensatory strategies to decrease risk for aspiration. Goal #2: The patient will participate in ongoing education re: long-term effects of chemoradiation treatment on swallow function and management of symptoms that contribute to dysphagia. Goal #3: The patient will complete an oropharyngeal exercise program X10-15 reps, 3-5X daily with minimal verbal cues to improve strength, ROM, and coordination of swallowing mechanism. Goal #4: The patient will participate in MBS study to objectively assess swallow function and provide recommendations for safest, least restrictive diet and co mpensatory strategies to reduce risk for aspiration. Education Patient has Indicated that the Following Identified Educational Needs: None The Patient has indicated that they have no educational or learning abilities that may effect their care.: Yes Patient Instruction Patient Education: Treatment Plan, Goals, Safety Precautions and Diet Level Person Taught: Patient Teaching Method: Discussion, Demonstration and Handout Response to teaching: Return Demonstration, Verbalize Understanding and Reinforcement Needed
--- NOTE | 2024-09-01 10:49 | HP.SP.DC ---
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 The patient is independently completing oropharyngeal exercises. The patient denies current swallowing difficulty and has had no observed s/s of aspiration the previous two sessions. Weight is stable and room service food service attendant is still following. The patient will be discharged from at this time; however, pt is planned for annual MBSS in December 2024 to monitor risk for worsening dysphagia s/p chemoradiation treatment for head and neck cancer. Pt agreeable to discharge at this time. Please re-consult if concern for worsening swallow function or need for re-instruction in maintenance oropharyngeal exercise program.
== END 2024-08-25 19:00 | disposition home or self-care (01) ==
LOC: SP 08:30
PROVIDERS: PCP Nurse Practitioner Family; Referring Provider Student in an Organized Health Care Education/Training Program; Visit Provider Student in an Organized Health Care Education/Training Program
DX: C7A.1 Malignant poorly differentiated neuroendocrine tumors (principal)
CPT/HCPCS: 92526; 92610

== ENCOUNTER → 2024-08-31 | Outpatient (CLI) | payer MEDICAID, SELFPAY ==
--- NOTE | 2024-08-31 08:20 | BI_ITS ---
MAMMOGRAPHY - BILATERAL SCREENING REASON FOR EXAM: Female, 64 years old. Routine annual screening examination. PERTINENT HISTORY: Non-contributory. History of prior right ultrasound-guided breast biopsy. TECHNIQUE: Digital bilateral breast toy (3D mammographic acquisition) in the CC and MLO projections. 2-D mediolateral oblique (MLO) and craniocaudad (CC) views of both breasts were obtained. CAD: Full Field Digital Mammography with Computer Added Detection was performed. COMPARISON: Comparison is made with prior study dated August 08, 2022 FINDINGS: Breast Composition: There are scattered areas of fibroglandular density. There are no dominant masses or suspicious calcifications. No other significant abnormalities are identified. There has been no significant change since the prior study. BI/SCRN MAMM (CAD)W/TOY BILAT IMPRESSION: Stable bilateral screening mammogram. Yearly follow-up mammogram recommended. (A) ASSESSMENT CATEGORY: BIRADS Category 1: Negative. A letter regarding these results will be sent to the patient by the facility within 30 days. Approximately 10% of breast cancers are not detected by mammography. A normal mammogram should not delay biopsy of a clinically suspicious abnormality. [id number] Electronically Signed: Michel Kohler MD at 9:31 EST ,
== END | disposition home or self-care (01) ==
LOC: OPBI 08:19
PROVIDERS: PCP Nurse Practitioner Family; Referring Provider Internal Medicine Hematology & Oncology; Visit Provider Internal Medicine Hematology & Oncology
DX: Z12.31 Encounter for screening mammogram for malignant neoplasm of breast (principal)
CPT/HCPCS: 77063; 77067

== ENCOUNTER → 2024-10-22 | Outpatient (CLI) | payer MEDICAID, SELFPAY ==
--- NOTE | 2024-10-22 16:55 | RAD_ITS ---
PROCEDURE: CERV SPINE 2 OR 3 VIEWS 10/22/2024 REASON FOR EXAM: CERVICAL RADICULOPATHY TECHNIQUE: 3 views of the cervical spine. COMPARISON: None FINDINGS: Vertebrae: Cervical vertebral body heights are preserved. No acute fracture or subluxation. Mild anterior vertebral body osteophyte formation. disc spaces: Severe narrowing of C4-C5, C5-C6 and C6-C7 intervertebral disc spaces. Alignment: Straightening of the cervical alignment likely due to positioning. soft tissues: Unremarkable Other: Partially visualized right-sided Port-A-Cath. RAD/Cerv Spine 2 or 3 Views IMPRESSION: MODERATE CERVICAL DEGENERATIVE CHANGES. No acute fracture. Reading Location: [facility]
[2024-10-22 19:17] LABS: Amphetamine Urine NEGATIVE (<1000 ng/mL); Barbiturate Urine NEGATIVE (< 200 ng/mL); Benzodiazepine Urine NEGATIVE (< 200 ng/mL); Buprenorphine Urine NEGATIVE (< 200 ng/mL); Cocaine Urine NEGATIVE (< 300 ng/mL); Fentanyl, Urine NEGATIVE; Methadone Urine NEGATIVE (< 300 ng/mL); Opiates Urine PRESUMPTIVE POSITIVE (< 300 ng/mL); Oxycodone, Urine NEGATIVE (< 100 ng/mL); PCP Urine NEGATIVE (< 25 ng/mL); THC Urine PRESUMPTIVE POSITIVE (< 50 ng/mL)
== END | disposition home or self-care (01) ==
PROVIDERS: PCP Nurse Practitioner Family; Referring Provider Anesthesiology Pain Medicine; Visit Provider Anesthesiology Pain Medicine
DX: M47.812 Spondylosis without myelopathy or radiculopathy, cervical region (principal); F11.20 Opioid dependence, uncomplicated
CPT/HCPCS: 72040; 80307

== ENCOUNTER → 2024-11-16 | Outpatient (CLI) | payer MEDICAID, SELFPAY ==
--- NOTE | 2024-11-16 07:11 | CT_ITS ---
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 TECHNIQUE: Chest and abdomen CT with intravenous contrast. Coronal and Sagittal reconstruction series were provided. One or more dose reduction techniques were used (e.g., Automated exposure control, adjustment of the mA and/or kV according to patient size, use of iterative reconstruction technique. PATIENT PREPARATION: Per protocol ORAL CONTRAST TYPE: None. CONTRAST: Isovue 370 VOLUME: 100mL RADIATION DOSE SUMMARY: CTDlvol: 7 mGy DLP: 634.04 mGycm COMPARISON: Comparison is made with prior study dated May 12, 2024. FINDINGS: CT CHEST: Hardware: A right-sided port a catheter is once again seen with the tip in the superior vena cava. Lymph nodes: No mediastinal or hilar lymph node seen. Heart and Vasculature: Normal heart size. No pericardial effusion. No coronary artery calcification. Lungs and Airways: Stable mild degree of scarring in the anterior aspect of both lung apices in keeping with history of prior radiation. Pleura: Unremarkable. CT ABDOMEN: Liver: Normal size. No mass. Gallbladder: Unremarkable Spleen: Normal size. Pancreas: Normal size without evidence of mass surrounding inflammation or ductal dilation. Adrenals: Unremarkable Kidneys: Normal renal sizes. No hydronephrosis. Bowel: Scattered sigmoid diverticula. Lymph nodes: Unremarkable. Vasculature: The abdominal aorta and IVC are normal. Peritoneum / Retroperitoneum: Unremarkable Bones: Disc space narrowing and disc degeneration at the L5-S1 level with minimal anterior listhesis and spondylolysis of the pars interarticularis of the L5 vertebrae. CT/CT Chest AND Abd W/ Contrast IMPRESSION: Stable examination. Essentially no change as compared to prior study. Reading Location: [place] [id number]
--- NOTE | 2024-11-16 07:11 | CT_ITS ---
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 CONTRAST: Isovue 370 VOLUME: 100 mL One or more dose reduction techniques were used (e.g., Automated exposure control, adjustment of the mA and/or kV according to patient size, use of iterative reconstruction technique). RADIATION DOSE SUMMARY: CTDlvol: 7 mGy DLP: 634.04 mGycm COMPARISON: Comparison is made with prior study dated May 12, 2024. FINDINGS: A right-sided port a catheter is seen with the tip in the superior vena cava. Airway: Midline and patent. Salivary glands: Unremarkable. Lymph nodes: No cervical lymphadenopathy. Thyroid: Unremarkable. Vasculature: Carotid arteries and internal jugular veins are unremarkable. Orbits: Unremarkable at visualized levels. Paranasal sinuses and mastoids: Persistent opacification of the ethmoid sinuses with the erosion of the bony septations. There is opacification of both maxillary sinuses as well as the sphenoid sinuses worse on the right side. Opacification of the frontal sinuses. Lung apices: Mild emphysematous changes. Upper mediastinum: Visualized mediastinum is unremarkable. Bones: Multilevel degenerative changes of the spine. Other: CT/Soft Tissue Neck WITH Contrast IMPRESSION: Pansinusitis with bony erosion of the ethmoid sinus septations. Reading Location: [place] [id number]
[2024-11-16] MEDS: 0.9 % NaCl (Sterile) Posiflush 10 mL IV (07:20)
[2024-11-16] MEDS: 0.9% Saline Lock 10 ML Syringe IV (07:35)
== END | disposition home or self-care (01) ==
LOC: CT 07:11
PROVIDERS: PCP Nurse Practitioner Family; Referring Provider Internal Medicine Hematology & Oncology; Visit Provider Internal Medicine Hematology & Oncology
DX: C31.9 Malignant neoplasm of accessory sinus, unspecified (principal)
CPT/HCPCS: 70491; 71260; 74160; Q9967; A4216

== ENCOUNTER 2024-11-23 18:09 | Emergency (ER) | payer MEDICAID, SELFPAY ==
[2024-11-23] VITALS (8 sets, daily range): BP systolic 112–128; BP diastolic 64–94; PULSE 66–86; RESP 15–26; TEMP 36.9–37.1; O2SAT 97–99; BMI 19.8
--- NOTE | 2024-11-23 18:36 | EX.ED.DYSGE1 ---
HPI History of Present Illness Chief Complaint: General Illness Narrative Narrative: Patient has a history of paranasal sinus neoplasm. The tumor was very extensive extended into the orbit, frontal sinus and eroded through the anterior wall and into both anterior cranial fossa. 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 She had chemotherapy and radiation. Per ENT notes she had a significant response. Her last dose of chemoradiation was August 2023. MRI that was obtained November 2023 revealed significant blockage of the sphenoid and ethmoid sinuses. CAT scan in May 2024 revealed continued blockage of said sinuses. There is no evidence of any tumor. She also was seen by Dr. Casper Shen for endocrinology, hypothyroidism. Her office note was reviewed. Also reviewed oncology's note authored by Dr. Bazzi.. Patient presents because of myalgias arthralgias runny nose, congestion sore throat and cough. Cough is productive of colored sputum. Illness started Saturday. She took her mother to [facility] this past weekend. She was in the waiting room for 6 to 8 hours and exposed to many ill patients. She denies headache, double vision blurred vision. She does report constant congestion due to her sinus tumor. She states she has had no taste since 2022. 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 Patient denies change in voice or difficulty swallowing. Patient denies abdominal pain, nausea, vomiting or diarrhea. Patient denies urologic symptoms. 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 Neck abscess Hypertension Primary cancer of paranasal sinus Home Medications ?Medication ?Instructions ?Recorded ?Last Taken ?Type albuterol sulfate 90 mcg/actuation 2 puff inhalation Q6H PRN SOB 03/15/23 Unknown History aerosol inhaler fluticasone propionate 50 1 spray intranasal BID 02/17/24 Unknown History mcg/actuation nasal spray,suspension (Flonase Allergy Relief) atropine 0.01 % eye drops 1 drp ophthalmic (eye) DAILY 05/25/24 Unknown History difluprednate 0.05 % eye drops 1 drp ophthalmic (eye) BID 05/25/24 Unknown History oxymetazoline 0.05 % nasal spray 2 spray intranasal Q12H PRN nasal 05/25/24 Unknown History (12 Hour Nasal Relief [place]) congestion pantoprazole 20 mg tablet,delayed 20 mg PO QDAY 05/25/24 Unknown History release vitamin E acetate 134 mg (200 134 mg PO QDAY 05/25/24 Unknown History unit) capsule lidocaine-prilocaine 2.5 %-2.5 % 20 g topical ONCE #30 grams 08/12/24 Unknown Rx topical cream pilocarpine HCl 5 mg tablet 5 mg PO TID #90 tabs 08/25/24 Unknown Rx dorzolamide 22.3 mg-timolol 6.8 1 drp RIGHT EYE BID 11/05/24 Unknown History mg/mL eye drops levothyroxine 88 mcg tablet 88 mcg PO MOTUWETHSA 11/05/24 Unknown History dexamethasone 6 mg tablet 6 mg PO DAILY #7 tabs 11/23/24 Unknown Rx hydrocodone-acetaminophen 5-325mg 1 tab PO BID 11/23/24 Unknown History 5mg-325mg pentoxifylline 400 mg 400 mg PO BID 11/23/24 Unknown History tablet,extended release Allergy/AdvReac Type Severity Reaction Status Date / Time No Known Allergies Allergy Verified 11/23/24 18:09 Family History Mother Hypertension Diabetes Aunt Hypertension Father Diabetes Mother Hypertension Surgical History History of surgery History of esophagogastroduodenoscopy (EGD) History of eye surgery History of surgery History of hand surgery Social History household members: none current occupational status: unemployed Smoking Status: Former smoker alcohol intake: current alcohol intake frequency: holidays/special occasions only substance use type: does not use ROS ROS ED Constitutional Constitutional ED: Reports chills and subjective; Denies fever(s), sweats or weight loss Eyes Eyes: Denies blurry vision or change in vision ENT ENT ED: Reports rhinorrhea and sore throat; Denies ear pain Cardiovascular Cardiovascular: Denies chest pain, orthopnea, palpitations or paroxysmal nocturnal dyspnea Respiratory/Chest Respiratory/Chest: Reports cough, dyspnea and sputum; Denies dyspnea on exertion, orthopnea or paroxysmal nocturnal dyspnea Gastrointestinal Gastrointestinal: Denies abdominal pain, diarrhea, nausea or vomiting Genitourinary Genitourinary ED: Denies dysuria, hematuria or urinary frequency Musculoskeletal Musculoskeletal: Reports arthralgias and myalgias Integumentary Reports rash Neurologic Neurologic: Denies headache(s) or paresthesias Hematologic/Lymphatic Hematologic/Lymphatic: Reports systems reviewed and no addt'l complaints, except as documented EXAM Physical Exam Const Vital Signs: 11/23/24 18:10 11/23/24 18:33 11/23/24 19:34 Temperature 98.7 F Temperature Source Oral Pulse Rate 86 66 Respiratory Rate 18 21 H Respiratory Effort Normal Non-Labored Respiratory Pattern Normal Blood Pressure 128/94 H Blood Pressure Mean 105 Pulse Ox 97 99 Oxygen Delivery Method Room Air 11/23/24 19:45 11/23/24 19:46 11/23/24 20:00 Temperature Temperature Source Pulse Rate 72 67 67 Respiratory Rate 18 15 20 H Respiratory Effort Respiratory Pattern Blood Pressure 124/75 H 113/70 Blood Pressure Mean 87 82 Pulse Ox 98 99 98 Oxygen Delivery Method 11/23/24 20:15 11/23/24 20:30 Temperature 98.4 F Temperature Source Oral Pulse Rate 67 81 Respiratory Rate 26 H 22 H Respiratory Effort Respiratory Pattern Blood Pressure 112/64 Blood Pressure Mean 80 Pulse Ox 97 99 Oxygen Delivery Method Positive well nourished and well developed General Appearance ED: well developed and NAD; Negative for cyanotic, diaphoretic or pallor HEENT Reports moist mucous membranes HEENT Narrative: Head is atraumatic no cephalic. Ears normal. Nares patent with some drainage noted. Posterior pharynx unremarkable. Eyes Eyes Narrative: Patient right eye is abnormal appearance due to spread of the neoplasm. She does not have any site on the right side. General Eye ED: Negative for pale conjunctiva or scleral icterus Neck no lymphadenopathy, supple and no JVD Resp normal respiratory effort and clear to auscultation bilaterally Cardio regular rate, regular rhythm, S1 normal heart sound, S2 normal heart sound and no murmurs Extremity normal to inspection Neuro oriented x3 and CN's II-XII intact bilaterally Sensorium / Orientation: alert Psych mental status grossly normal Skin no rashes or lesions noted, no wounds and skin turgor normal General Skin Exam: Negative for jaundice or pallor MDM MDM MDM Narrative Medical decision making narrative: Concern patient has a viral upper respiratory infection. Also need to consider pneumonia. Will obtain appropriate blood work to assess white count, H&H, renal function and chest x-ray. She was swabbed for COVID, RSV and influenza. If she has an infiltrate on x-ray and her rapid antigen is negative we will treat with antibiotics. History & Record Review Additional record(s) reviewed:: Prior outpatient record, Prior ED visit and Prior labs Lab Data Attestation: I reviewed the patient's lab results. Lab results narrative: Patient is neutropenic. This would suggest a viral illness. Competence of metabolic panel is unremarkable. Rapid antigen for COVID, influenza and RSV was positive for COVID. This would explain her constellation of symptoms. Labs: Laboratory Results - last 24 hr 11/23/24 18:36 WBC 3.0 L RBC 4.25 Hgb 11.6 L Hct 34.7 L MCV 81.6 MCH 27.3 MCHC 33.4 RDW Std Deviation 45.3 H RDW Coeff of Stan 15.2 H Plt Count 203 MPV 10.1 Immature Gran % (Auto) 0.300 Neut % (Auto) 58.7 Lymph % (Auto) 14.0 L [place] % (Auto) 24.0 H Eos % (Auto) 2.0 Baso % (Auto) 1.0 Absolute Neuts (auto) 1.8 L Absolute Lymphs (auto) 0.42 L Nucleated RBC % 0 Sodium 135 Potassium 4.0 Chloride 100 Carbon Dioxide 25.3 Anion Gap 10 BUN 8 Creatinine 0.75 Estim Creat Clear Calc 60.77 Est GFR (MDRD) Non-Af 89 BUN/Creatinine Ratio 10.3 Glucose 94 Calcium 9.8 Total Bilirubin 0.35 AST 21 ALT 13 Alkaline Phosphatase 96 Total Protein 8.4 Albumin 3.6 Globulin 4.8 H Albumin/Globulin Ratio 0.8 L Radiography Chest X-Ray - ED: 2 View and Read by ED Physician (Port is noted on the right side. There is some chronic changes. There is no evidence of infiltrate, effusion, pneumothorax, cardiac silhouette size normal. Hilum is unremarkable. Osseous structures reveal some chronic changes otherwise unremarkable. This is dependently reviewed interpreted by m) Diagnostic Testing: Clinical Impression(s) from Imaging Studies Chest X-Ray 11/23/24 18:48 IMPRESSION: No active disease. Reading Location: [facility] Treatment and Re-Evaluation :: Since patient is COVID-positive she was prescribed Decadron. Discharge Plan Triage Chief Complaint: General Illness ED Provider: Octavio Diaz Dx/Rx/DC Orders Clinical Impression: COVID-19, Pituitary disorder NEC, Hypothyroidism (acquired), Neutropenia Instructions: Coronavirus Disease 2019 (COVID-19): Caring for Yourself or Others Prescriptions: New dexamethasone 6 mg tablet 6 mg PO DAILY Qty: 7 0RF No Action albuterol sulfate 90 mcg/actuation HFA aerosol inhaler 2 puff inhalation Q6H PRN (Reason: SOB ) fluticasone propionate [Flonase Allergy Relief] 50 mcg/actuation spray,suspension 1 spray intranasal BID Rx Instructions: administer into each nostril pantoprazole 20 mg tablet,delayed release (DR/EC) 20 mg PO QDAY difluprednate 0.05 % drops 1 drp ophthalmic (eye) BID Rx Instructions: start on Day 15 of therapy vitamin E acetate 134 mg (200 unit) capsule 134 mg PO QDAY atropine 0.01 % drops 1 drp ophthalmic (eye) DAILY oxymetazoline [12 Hour Nasal Relief [place]] 0.05 % spray,non-aerosol 2 spray intranasal Q12H PRN (Reason: nasal congestion) pilocarpine HCl 5 mg tablet 5 mg PO TID Qty: 90 0RF Rx Instructions: take 1 tab PO tid hydrocodone-acetaminophen 5-325 mg tablet 1 tab PO BID pentoxifylline 400 mg tablet extended release 400 mg PO BID dorzolamide-timolol 22.3-6.8 mg/mL drops 1 drp RIGHT EYE BID levothyroxine 88 mcg tablet 88 mcg PO MOTUWETHSA lidocaine-prilocaine 2.5-2.5 % cream 20 g topical ONCE Qty: 30 1RF Rx Instructions: as a single dose 60 min before procedure over area Primary Care Provider: David Case NP Referrals: David Case FLATTENING PRESS OPERATOR, FLATTENING PRESS OPERATOR-C [Primary Care Provider] - 1 Week if not improving Print Language: Monegasque Disposition Disposition: Home, Self Care
--- NOTE | 2024-11-23 18:48 | RAD_ITS ---
PROCEDURE: CHEST PA AND LATERAL 11/23/2024 REASON FOR EXAM: COUGH TECHNIQUE: Frontal and lateral views of the chest. FINDINGS: Hardware: Right internal jugular chest port. Heart: The heart size is normal. Mediastinum: The mediastinal contour is unremarkable. Lungs: The lungs are clear. Bones: The bones are unremarkable. RAD/Chest PA and Lateral IMPRESSION: No active disease. Reading Location: [id number]
[2024-11-23 19:06] LABS: Absolute Lymphocyte Count 0.42 X10^3/uL (0.83-4.51); Absolute Neutrophil Count 1.8 X10^3/uL (2.0-7.7); Basophil# 0.03 X10^3/uL; Eosinophil# 0.06 X10^3/uL; Hematocrit 34.7 % (37-47); Hemoglobin 11.6 g/dL (12.0-15.0); Lymphocyte # 0.42 X10^3/ul (0.83-4.51); Mean Corp Hgb Conc 33.4 g/dL (32-36); Mean Corpuscular Hgb 27.3 pg (27.0-32.0); Mean Corpuscular Volume 81.6 fL (81-99); Mean Platelet Vol. 10.1 fl (6.2-12.0); Monocyte# 0.72 X10^3/uL; NRBC Flagged by Analyzer 0 % (0-5); Neutrophil # 1.76 X10^3/uL (2.7-7.7); Neutrophil % 58.7 % (47-70); POSITIVE DIFFERENTIAL YES; Platelet Count 203 K/mm3 (150-450); RBC Distribution Width CV 15.2 % (11.6-14.6); RBC Distribution Width SD 45.3 fl (35.1-43.9); Red Blood Count 4.25 M/mm3 (4.2-5.4)
[2024-11-23 19:35] LABS: ALB/GLOB Ratio 0.8 RATIO (0.9-2.4); AST(SGOT) 21 U/L (<=31); Alanine Aminotransfer ALT/SGPT 13 U/L (<=34); Albumin, Serum 3.6 g/dL (3.4-4.8); Alkaline Phosphatase 96 U/L (35-104); Anion Gap 10 (5-15); BUN 8 mg/dL (4-19); BUN/Creat Ratio 10.3 RATIO (10-20); Calcium,Total 9.8 mg/dL (7.6-11.0); Carbon Dioxide 25.3 mmol/L (21.0-32.0); Chloride 100 mmol/L (98-108); Creatinine, Serum 0.75 mg/dL (0.70-1.20); EST Glomerular Filtration Rate 89 (>60); Estimated Creatinine Clearance 60.77 ml/min (50-250); Globulin 4.8 g/dL (2.2-4.2); Glucose 94 mg/dL (70-99); Protein, Total 8.4 g/dL (5.9-8.4); Sodium Level 135 mmol/L (133-145); Total Bilirubin 0.35 mg/dL (0.00-1.30)
[2024-11-23] MEDS: 0.9% Saline Lock 10 ML Syringe IV (20:54)
== END 2024-11-23 20:58 | disposition home or self-care (01) ==
PROVIDERS: Internal Medicine Hematology & Oncology; Emergency Provider Emergency Medicine; PCP Nurse Practitioner Family; Visit Provider Emergency Medicine
DX: U07.1 COVID-19 (principal); D70.9 Neutropenia, unspecified; E03.9 Hypothyroidism, unspecified; Z87.891 Personal history of nicotine dependence; Z92.3 Personal history of irradiation; I10 Essential (primary) hypertension; E23.7 Disorder of pituitary gland, unspecified; Z85.22 Personal history of malignant neoplasm of nasal cavities, middle ear, and accessory sinuses; Z92.21 Personal history of antineoplastic chemotherapy; K21.9 Gastro-esophageal reflux disease without esophagitis; Z79.899 Other long term (current) drug therapy; Z79.890 Hormone replacement therapy
CPT/HCPCS: 36591; 71046; 80053; 84439; 84443; 85025; 87631; 99285; A4216

== ENCOUNTER 2024-12-01 16:25 | Outpatient (RCR) | payer MEDICAID, SELFPAY | END 2024-12-02 23:59 | LOC: NS 16:25 | PROVIDERS: PCP Nurse Practitioner Family; Visit Provider Internal Medicine Hematology & Oncology | DX: Z71.3 Dietary counseling and surveillance (principal); R63.4 Abnormal weight loss | CPT/HCPCS: 97803 ==

== ENCOUNTER → 2024-12-15 | Outpatient (CLI) | payer MEDICAID, SELFPAY ==
--- NOTE | 2024-12-15 09:32 | ST.MBS ---
Modified Barium Swallow Patient Information Study Date: 12/15/24 Study Time: 09:30 Direct Billable Minutes: 90 Total Minutes procedure & reportin Diagnosis: Malignant poorly differentiated neuroendocrine tumors C7A.1 Referring Physician: Shmuel Cabello Reason for Referral: Annual MBSS recommended s/p chemoradiation treatment for malignant neuroendocrine tumors as the patient is at risk for worsening dysphagia due to rodent exterminator effects of radiation treatment.? 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 From 07/01/2023 ? 08/13/2023 she completed definitive chemoradiation. BSE with OUTSIDE DEALER SALES REPRESENTATIVE (06/24/2023) recommending regular textures / thin liquids. MBSS 07/04/2023 revealing oropharyngeal swallow function grossly WNL and recommending Regular textures / Thin liquids. The patient followed w/ OP ST during and following chemoradiation treatment. MBSS 12/09/2023 revealed mild-mod oropharyngeal dysphagia, mild esophageal dysphagia and recommended minced and moist Texture / thin liquids and the following Compensatory Strategies: Small Bites, Small Sips, Alternate bites/solids and sips/liquids (1:1 ratio), Sitting upright and Remain sitting upright for 30 minutes after PO intake. She underwent GI work up w/ esophageal dilation this past year. Since chemoradiation treatment, she has lost a great deal of weight, but continues to follow w/ the inside sales representative. She reports her weight has been stable w/ the exception of losing 5lbs from recent COVID-19. Currently, she is tolerating a minced/pureed diet due to inability to chew and constipation concerns with solids. Most of her teeth have fallen out and she is referred to an oral surgeon in [place] who specializes in HNC patients. She denies difficulty swallowing foods once they are chewed. She reports severe hypogeusia (tastes very few things, and they are nasty foods, mild-severe xerostomia (managed by mouthwash). She swallows liquids and pills without difficulty. Other PMH: Anemia, Arthritis, Back pain, Former smoker, HTN, Malignant poorly differentiated neuroendocrine tumors, Neck abscess, Ocular proptosis, Primary cancer of paranasal sinus, Substance abuse, Thyroid disease, Wears dentures and glasses. Current Diet Ordered: Puree textures / Thin liquids Dentition: Natural Teeth and Missing Teeth Mental Status: WNL Respiratory Status: Oxygenating on Room Air Penetration-Aspiration Scale Penetration-Aspiration Scale: OBJECTIVE ASSESSMENT OF SWALLOW FUNCTION (QUANTITATIVE ? PER TRIAL): PENETRATION / ASPIRATION SCALE (VALERIO): 1 = does not enter airway 2 = enters airway/above vocal folds/ejected 3 = enters airway/above vocal folds/not ejected 4 = enters airway/contacts vocal folds/ejected 5 = enters airway/contacts vocal folds/not ejected 6 = enters airway/below vocal folds/ejected 7 = enters airway/below vocal folds/not ejected despite effort 8 = enters airway/below vocal folds/no effort VIDEOFLOROSCOPIC SCALE SCORE (VALERIO): Grade I = aspiration of material that has penetrated into the laryngeal vestibule, intact cough reflex Grade II = aspiration < 10 % of the bolus, intact cough reflex Grade III = aspiration of < 10 % of the bolus, reduced cough reflex or aspiration of > 10 % of the bolus, intact cough reflex Grade IV = aspiration of > 10 % of the bolus, reduced cough reflex Penetration-Aspiration Scale Score Thin Liquid via teaspoon: Result: 2= enter airway/above vocal folds/ejected Thin Liquid via teaspoon Trial 2: Result: 2= enter airway/above vocal folds/ejected Thin Liquid via small single sip: cup: Result: 2= enter airway/above vocal folds/ejected Arcade Thick Liquid via small single sip: cup: Result: 1= does not enter airway Pudding via teaspoon: Result: 1= does not enter airway Comment: Esophageal screen - Minimal retention in the upper esophagus. Complete clearance, otherwise. Thin Liquid via sequential sips:straw: Result: 2= enter airway/above vocal folds/ejected 1/4 Cookie: Result: 1= does not enter airway Thin Liquid via sequential sips:straw Trial 2: Result: 2= enter airway/above vocal folds/ejected Comment: Esophageal screen - Minimal retention in UES; otherwise, complete clearance. Oral Phase Labial Seal: No Labial Escape Tongue Control During Bolus Hold: Posterior escape of greater than half of bolus Bolus Preparation/Mastication: Slow prolonged chewing/mashing with complete recollection Bolus Transport/Lingual Motion: Delayed initiation of tongue motion Oral Residue: Majority of bolus remaining (piecemeal deglutition of cookie) Pharyngeal Phase Initiation of Pharyngeal Swallow: Bolus head in pyriforms Soft Palate Elevation: Trace column of contrast/air between soft palate and pharyngeal wall Laryngeal Elevation: Comp. Superior move thyroid cart w/comp. apprx arytenoid cart-epig pet Anterior Hyoid Excursion: Partial anterior movement Epiglottic Movement: Complete inversion Laryngeal Vestibule Closure at Height of Swallow: Incomplete; narrow column of air/contrast in laryngeal vestibule Pharyngeal Stripping Wave: Present - diminished Pharyngoesophageal Segment Opening: Parital distension and partial duration; parital obstruction of flow Tongue Base Retraction: Narrow column of contrast between tongue base & post. pharyngeal wall Pharyngeal Residue: Collection of residue within or on pharyngeal structures Esophageal Phase Esophageal Clearance: Esophageal retention Diagnosis/Impression Diagnosis: Mild-mod oropharyngeal dysphagia R13.12 Impression: C4-C6 appeared to have anterior bony protrusions w/ minimal retention of barium at the level of C6 during the study consistent with findings of cervical spine X-ray from 10/22/2024. The oral phase is primarily marked by... -Posterior loss of <1/2 of thin liquid boluses to the pyriforms prior to swallow onset. -Delayed tongue motion for A-P transport. -Piecemeal deglutition of cookie requiring multiple swallows and a liquid wash to clear 1/4 Lory Doone from the oral cavity. Good oral clearance of pudding on the first swallow. The pharyngeal phase is primarily marked by... -Mild delay initiating the swallow. -Trace-mild pharyngeal residue of pudding due to mildly decreased tongue base retraction, pharyngeal stripping wave, and UES opening/duration. -Mildly decreased anterior hyoid excursion; however, complete laryngeal elevation. Trace laryngeal penetration of liquids with full ejection. No aspiration. The esophageal phase is primarily marked by... -Minimal retention of barium in the upper esophagus. Overall, the patient demonstrates very similar oropharyngeal swallow function as compared to last year's study with improved esophageal phase findings as compared to last year. Recommendations Diet: Soft and Bite Sized Textures and Thin Liquids Compensatory Strategies: Small Bites, Small Sips, Slow Rate, Alternate bites/solids and sips/liquids, Sitting upright and Remain sitting upright for 30 minutes after PO intake Recommend Repeat Modified Barium Swallow: Yes Comment: Repeat MBS study in 6-12 months to monitor swallow function as the patient is at risk for worsening dysphagia and aspiration risk s/p chemoradiation treatment Need for Skilled Speech Therapy Services: No Comment: OUTSIDE DEALER SALES REPRESENTATIVE recommends continuing maintenance oropharyngeal exercise program. If concern for worsening swallow function prior to repeat annual MBSS, please contact this OUTSIDE DEALER SALES REPRESENTATIVE via [facility], [place]'s front end software developer. Education Completed: 1. Described result of evaluation. Status Active ST Patient: Active Contact Information [facility] Speech Therapy:: Saige Shine M.A. CCC-OUTSIDE DEALER SALES REPRESENTATIVE? Speech-Language Pathologist?? [id number]?? [place] [address]?? [email or web address]?? [phone]
== END | disposition home or self-care (01) ==
LOC: RAD 09:29
PROVIDERS: PCP Nurse Practitioner Family; Referring Provider Student in an Organized Health Care Education/Training Program; Visit Provider Student in an Organized Health Care Education/Training Program
DX: C7A.1 Malignant poorly differentiated neuroendocrine tumors (principal)
CPT/HCPCS: 74230; 92611

== ENCOUNTER → 2025-03-12 | Outpatient (CLI) | payer MEDICARE, MEDICAID, SELFPAY ==
[2025-03-12 18:25] LABS: Hematocrit 32.2 % (37-47); Hemoglobin 10.4 g/dL (12.0-15.0); Immature Reticulocyte Fraction 4.60 % (3.00-15.90); Mean Corp Hgb Conc 32.3 g/dL (32-36); Mean Corpuscular Volume 85.4 fL (81-99); Mean Platelet Vol. 10.5 fl (6.2-12.0); Platelet Count 231 K/mm3 (150-450); RBC Distribution Width CV 14.9 % (11.6-14.6); RBC Distribution Width SD 46.8 fl (35.1-43.9); Red Blood Count 3.77 M/mm3 (4.2-5.4); Reticulocyte Count 0.62 % (0.5-1.5); White Blood Count 2.6 K/mm3 (4.4-11.0)
[2025-03-12 18:37] LABS: Prothrombin Time (Protime)PT. 14.0 SECONDS (11.7-14.9)
[2025-03-12 18:38] LABS: Partial Thromboplast Time 30.2 Seconds (24.1-36.2)
[2025-03-12 19:08] LABS: AST(SGOT) 19 U/L (<=31); Alanine Aminotransfer ALT/SGPT 13 U/L (<=34); Albumin, Serum 3.7 g/dL (3.4-4.8); Alkaline Phosphatase 92 U/L (35-104); Anion Gap 9 (5-15); BUN 11 mg/dL (4-19); BUN/Creat Ratio 16.9 RATIO (10-20); Calcium,Total 9.7 mg/dL (7.6-11.0); Carbon Dioxide 25.3 mmol/L (21.0-32.0); Chloride 100 mmol/L (98-108); Ferritin 678 ng/mL (22-378); Globulin 4.2 g/dL (2.2-4.2); Glucose 101 mg/dL (70-99); Iron 24 ug/dL (50-170); Iron Binding Capacity,Unsat 211 ug/dL (228-428); Potassium 3.4 mmol/L (3.3-5.1)
[2025-03-12 19:09] LABS: Iron Binding Capacity,Total 235 ug/dL (250-450)
[2025-03-17 16:09] LABS: Protein C, Functional 99 % (73-180); Protein S, Funtional 85 % (63-140)
== END | disposition home or self-care (01) ==
PROVIDERS: PCP Nurse Practitioner Family; Visit Provider Nurse Practitioner Family
DX: D50.9 Iron deficiency anemia, unspecified (principal); C31.9 Malignant neoplasm of accessory sinus, unspecified; M86.8X8 Other osteomyelitis, other site; R04.0 Epistaxis
CPT/HCPCS: 80053; 82728; 83540; 83550; 85027; 85045; 85240; 85303; 85306; 85610; 85730

== ENCOUNTER → 2025-03-12 | Outpatient (CLI) | payer MEDICARE, MEDICAID, SELFPAY ==
--- NOTE | 2025-03-12 16:58 | CT_ITS ---
PROCEDURE: CT SINUS/FACIAL BONE WITH CONTRAST 03/12/2025 REASON FOR EXAM: Epistaxis; history of small-cell carcinoma, completed chemoradiation therapy. TECHNIQUE: CT SINUS/FACIAL BONE WITH CONTRAST. Coronal and Sagittal reconstruction series were provided. CONTRAST: Isovue 370 VOLUME: 98 mL One or more dose reduction techniques were used (e.g., Automated exposure control, adjustment of the mA and/or kV according to patient size, use of iterative reconstruction technique). RADIATION DOSE SUMMARY: DLP: 789.87 mGycm COMPARISON: MRI face 11/14/2023. CT neck 11/16/2024. FINDINGS: Redemonstrated aggressive appearing chronic diffuse paranasal sinus disease, with near-complete opacification of bilateral frontal sinuses, right ethmoid air cells, bilateral maxillary sinuses, and right sphenoid sinus, with subtotal opacification/mucosal thickening in left sphenoid sinus and posterior left ethmoids. Associated prominent peripheral osseous remodeling/osteitis with multiple areas of cortical erosion and thinning/dehiscence, particularly along the medial estrada of the orbits/lamina papyracea bilaterally, inner table right frontal sinus, and outer table of the midline frontal sinus cavity. No infiltration of the retrobulbar or retromaxillary fat planes is appreciated. No definite intracranial extension such as subdural/epidural empyema along the frontal convexities is seen, although subtle intracranial extension/dural disease can not be excluded on this exam. No drainable fluid collection/abscess within the overlying frontal scalp subcutaneous tissues. Findings are overall similar to the most recent prior exams, with no findings suspicious for recurrence/progression of sinonasal tumor. 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 Extensive chronic peripheral osseous remodeling/osteitis with multiple areas of cortical thinning/erosion and dehiscence particularly along the medial orbital rims bilaterally, and the inner and outer tables of the frontal sinus cavities. No findings suspicious for tumor recurrence/progression. No evident intracranial extension at the frontal convexity, or the overlying frontal scalp soft tissues. Reading Location: [id number]
== END | disposition home or self-care (01) ==
LOC: CT 16:55
PROVIDERS: PCP Nurse Practitioner Family; Referring Provider Nurse Practitioner Family; Visit Provider Nurse Practitioner Family
DX: C31.9 Malignant neoplasm of accessory sinus, unspecified (principal); M86.8X8 Other osteomyelitis, other site; R04.0 Epistaxis
CPT/HCPCS: 70487; Q9967; A4216

== ENCOUNTER → 2025-03-19 | Outpatient (CLI) | payer MEDICARE, MEDICAID, SELFPAY ==
--- NOTE | 2025-03-19 07:50 | RAD_ITS ---
PROCEDURE: CHEST PA AND LATERAL 03/19/2025 REASON FOR EXAM: HBO THERAPY TECHNIQUE: CHEST PA AND LATERAL COMPARISON: Chest x-ray study dated 11/23/[address] scan of the chest dated 11/16/2024 FINDINGS: Hardware: A right internal jugular central venous line tip is seen in the region of the distal superior vena cava/ proximal right atrium. A radiopaque clip is projected over the right breast from a prior biopsy. Heart: Heart size and configuration are within normal limits. Mediastinum: Pulmonary vasculature and hilar structures are unremarkable. Trachea is midline. Mediastinal silhouette is within normal limits. Lungs: Lungs are expanded and clear without evidence of atelectasis, consolidation, effusion, pneumonic infiltrate, or pneumothoraces. Bones: Diffuse osteopenia of the bony thorax is seen. There is increased kyphotic curvature and degenerative changes of the thoracic spine. RAD/Chest PA and Lateral IMPRESSION: No acute cardiopulmonary process is identified radiographically. Reading Location: [id number]
--- NOTE | 2025-04-05 14:37 | PCM.WC.HP ---
History of Present Illness Date of Service: 03/30/25 Chief Complaint: Osteoradionecrosis of the mandible History of Wound: This is a 64-year-old female who was referred to the [facility] for evaluation relative to possible treatment with hyperbaric oxygen therapy for osteoradionecrosis of the mandible. The patient's medical history is nicely summarized by her Radiation Oncologist, Dr. 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 She had post-chemotherapy MRI brain and PET scan demonstrating very favorable response to treatment. From 07/01/2023 ? 08/13/2023 she completed definitive chemoradiation. History of Present Illness: 02/12/2023: CT sinus without contrast was performed. There is evidence for right-sided proptosis there is soft tissue extending into the right medial periorbital space as well as the olfactory sulcus from the frontal sinus. There is right preseptal stranding and right frontal scalp soft tissue irregularity. There is permeative destruction of the right posterior and central frontal sinus estrada and replacement of the right lamina papyracea. Recommend MRI to further evaluate this lesion. 02/13/2023: CT head/brain without contrast was performed. This demonstrated a 4.4 x 2.4 x 5.1 cm masslike soft tissue lesion predominantly involving the right ethmoid and both frontal sinuses. 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 Recommend MRI and ENT consultation. 02/15/2023: MRI brain with and without contrast was performed. This demonstrated an expansile T2 hypointense heterogeneously diffusion restricting enhancing mass involving the right middle and superior nasal cavity, medial aspect of the right maxillary sinus, right ethmoid air cells, medial wall and superior wall and very medial portions of the inferior wall of the right orbit, right nasolacrimal duct, extraconal portion of the right orbit medially and superiorly with extension anteriorly to along the anterior medial aspect of the superior portion of the globe in the region of the preseptal soft tissues. Left anterior ethmoid air cells, and bilateral frontal sinuses through anterior skull base and into the extra-axial spaces adjacent to the anterior inferior bilateral frontal lobes as well as through the anterior portion of the frontal bone and frontal sinuses into the adjacent superficial soft tissues. There is mild edema of the right anterior inferior frontal lobe. In addition to the extra-axial intracranial portions of this mass there is a smooth thin dural thickening predominantly along the anterior aspect of the frontal lobes and along the falx. The majority of the right sided extraocular muscles appear to be displaced and not definitively involved. The intraconal fat is preserved. The optic nerves and optic nerve canals do not appear to be involved. The globe does not appear to be involved although there is abutment of the right globe medially and superiorly. There are similar changes involving the left medial orbital wall suspicious for left intraorbital involvement, the left infraorbital fissure, superior orbital fissures and pterygopalatine fossa do not appear to be involved. No abnormal enhancement of the intracranial portions of the cranial nerves is identified. No other abnormalities are noted. 03/04/2023: Patient was evaluated by ENT. Patient is unable to open the right eye due to considerable cutaneous tumor involvement at the superior medial orbit causing mass effect. Clinical type low back. Neurologically stable except for some cranial nerve V2 and V1 diminished sensation at the right greater than left. Significant tenderness is noted to palpation of firm subcutaneous nodules overlying midline and right frontal sinus and right superior medial cutaneous orbit lesion. 03/04/2023: Patient completed nasal endoscopy and biopsy. There is evidence of a friable mass on the right side in the area of the middle turbinate, biopsies were obtained. Left side demonstrated no evidence of disease. Pathology demonstrated poorly differentiated carcinoma with neuroendocrine features. 03/08/2023: Patient was presented at head and neck tumor board at . Recommendation was to proceed with induction chemotherapy. Patient is felt to have a clinical T4b N0 poorly differentiated carcinoma with neuroendocrine features. Disease appears to be emanating from the right paranasal sinuses and involves meningeal and brain as well as soft tissue. 03/25/2023: initiated neoadjuvant chemotherapy with carboplatin/etoposide 04/09/2023: PET scan was performed. This demonstrated increased glucose metabolism found in the anterior skull base involving the superior aspect of the left and to a lesser extent to the right orbit, the calculated maximum SUV is 5.2 with a maximum diameter of 7.8 cm. 06/14/2023: MRI brain with and without contrast was performed. 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 There is still abnormal soft tissue opacification enhancement across the frontal sinuses and the right ethmoid air cells which may represent residual malignancy in these regions. The previously seen intensely enhancing 4.9 x 2.3 cm extra-axial lobular pleural-based mass in the anterior floor of the bilateral frontal lobe/gyrus recti demonstrates 90% interval resolution decreased in size with only minimal dural thickening and enhancement seen in these regions. 06/18/2023: PET scan was performed. This demonstrated no evidence of viable neoplasm. Compared to the prior exam there has been a complete response of the previously identified abnormalities. From 07/01/2023 ? 08/13/2023: received definitive chemoradiation consisting of 6000 cGy delivered to the current abnormality on MRI which is PET negative involving the paranasal sinuses and abutting the orbit as well as into the frontal sinus abutting the brain parenchyma and 5400 cGy delivered to the bilateral neck all in 30 fractions with concurrent chemotherapy. She was treated using a VMAT plan with 6 MV photons. She was treated with concurrent weekly cisplatin. 11/06/2023: eval by ENT. CHARLI AMOS in 2 months. 11/12/2023: PET scan was performed. This demonstrated no evidence of recurrent neoplasm, no evidence of metastatic disease. 11/14/2023: Patient completed MRI of the orbits with and without contrast. This demonstrated evidence of pansinusitis but no other abnormalities noted. 05/12/2024: CT neck showed pansinusitis, stable, no new findings. Radiation Treatment History: 1) From 07/01/2023 ? 08/13/2023: received definitive chemoradiation consisting of 6000 cGy delivered to the current abnormality on MRI which is PET negative involving the paranasal sinuses and abutting the orbit as well as into the frontal sinus abutting the brain parenchyma and 5400 cGy delivered to the bilateral neck all in 30 fractions with concurrent chemotherapy. She was treated using a VMAT plan with 6 MV photons. She was treated with concurrent weekly cisplatin. The patient's history is negative for myocardial infarction, congestive heart failure, hypertension, diabetes mellitus, cerebrovascular accident, pulmonary disease, and renal disease. The patient has lost approximately 100 pounds due to dysphagia and loss of her dentition, requiring her to consume a soft and pur?ed diet. 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 Additionally, the patient has experienced recent nosebleeds from the right nostril. She is a former smoker, but occasionally uses marijuana products. The patient does not suffer from seizures, claustrophobia, has no untreated cancer, has no history of barotrauma, and does not have a cardiac pacemaker. 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 Malignant neuroendocrine neoplasm Gout Gastric reflux Hypothyroidism (acquired) Port-A-Cath in place Shingles Anemia Weight loss Diarrhea Constipation Drug induced neutropenia Thrush Dehydration Pituitary disorder NEC Wears glasses Wears dentures Post-menopausal Substance abuse History of steroid therapy Thyroid disease Arthritis Back pain Former smoker Leg cramps Cancer Encounter for chemotherapy management Anemia Ocular proptosis Malignant poorly differentiated neuroendocrine tumors Neck abscess Hypertension Primary cancer of paranasal sinus Home Medications ?Medication ?Instructions ?Recorded ?Last Taken ?Type atropine 0.01 % eye drops 1 drp ophthalmic (eye) DAILY 05/25/24 Unknown History difluprednate 0.05 % eye drops 1 drp ophthalmic (eye) BID 05/25/24 Unknown History oxymetazoline 0.05 % nasal spray 2 spray intranasal Q12H PRN nasal 05/25/24 Unknown History (12 Hour Nasal Relief [place]) congestion pantoprazole 20 mg tablet,delayed 20 mg PO QDAY 05/25/24 Unknown History release Held on 03/16/25. Instructions: STARTED PEPCID vitamin E acetate 134 mg (200 134 mg PO QDAY 05/25/24 Unknown History unit) capsule lidocaine-prilocaine 2.5 %-2.5 % 20 g topical ONCE #30 grams 08/12/24 Unknown Rx topical cream dorzolamide 22.3 mg-timolol 6.8 1 drp RIGHT EYE BID 11/05/24 Unknown History mg/mL eye drops levothyroxine 88 mcg tablet 88 mcg PO MOTUWETHSA 11/05/24 Unknown History hydrocodone-acetaminophen 5-325mg 1 tab PO BID PRN pain 11/23/24 Unknown History 5mg-325mg multivitamin 1 tab PO QAM 12/01/24 Unknown History pentoxifylline 400 mg 400 mg PO BID 03/11/25 Unknown History tablet,extended release pilocarpine HCl 7.5 mg tablet 7.5 mg PO ONCE #90 tabs 03/11/25 Unknown Rx dexamethasone 4 mg tablet 4 mg PO DAILY 03/16/25 Unknown History doxycycline monohydrate 100 mg 100 mg PO BID 03/16/25 Unknown History capsule famotidine 40 mg tablet 40 mg PO QHS 03/16/25 Unknown History Allergy/AdvReac Type Severity Reaction Status Date / Time No Known Allergies Allergy Verified 03/16/25 10:34 Family History Mother Hypertension Diabetes Aunt Hypertension Father Diabetes Mother Hypertension Surgical History History of surgery History of esophagogastroduodenoscopy (EGD) History of eye surgery History of surgery History of hand surgery Social History household members: none current occupational status: unemployed Smoking Status: Light Smoker (<10/day) alcohol intake: current alcohol intake frequency: holidays/special occasions only substance use type: does not use Physical Exam Const alert, oriented x3, no apparent distress, average body habitus and no limitations Constitutional Narrative: The patient's BMI is 20.4. General Appearance: cooperative, comfortable, well kempt and well developed Orientation / Consciousness: awake, oriented to person, oriented to place and oriented to time Exam Limitations: no limitations HEENT normocephalic and head/scalp atraumatic Head and Scalp: normal to inspection, normocephalic and atraumatic Face and Sinus: normal facial exam Nose: external nose normal External Ear: external ears normal External Auditory Canal: EAC's normal Tympanic Membrane: TM's normal bilaterally Mouth: other Other Details: The patient is nearly edentulous. Nearly all of her teeth are absent from the mandible and maxilla, with only a few scattered fractured remnants of teeth. Teeth and Gingiva: poor dentition Eyes Eyes Narrative: Ptosis is noted involving the right eye. Neck full ROM Chest inspection of chest normal Chest Narrative: A subcutaneous intravenous port is noted in the right upper anterior chest. Resp normal respiratory effort, normal air movement, no retractions, no use of accessory muscles and clear to auscultation bilaterally Effort and Inspection: able to speak in complete sentences and symmetric chest movement Auscultation: clear to auscultation bilaterally Cardio regular rate, regular rhythm, S1 normal heart sound, S2 normal heart sound, no murmurs, no rub and no gallops Rate: regular rate Rhythm: regular rhythm Heart Sounds: S1 normal and S2 normal Extremity normal to inspection and no calf tenderness General Extremity: Negative for clubbing or cyanosis Neuro oriented x3, CN's II-XII intact bilaterally, moves all extremities, no focal motor deficits and no sensory deficits noted Sensorium / Orientation: awake, alert, oriented to person, oriented to place and oriented to time Speech: speech normal Psych Appearance: grossly normal and appropriate Attitude: calm Activity / Motor Behavior: appropriate eye contact Speech: normal speech Mood & Affect: euthymic mood Thought Process: normal thought process Thought Content: normal thought content Attention / Concentration: attention grossly intact Charges/Coding Visit Charges Office Visits / Consults: [id number] OV L3 Est 20min Assessment/Plan Assessment/Plan (1) Osteoradionecrosis of mandible: CODE(S): M27.2 - Inflammatory conditions of jaws; Y84.2 - Radiological procedure and radiotherapy as the cause of abnormal reaction of the patient, or of later complication, without mention of misadventure at the time of the procedure (2) Xerostomia due to radiotherapy: CODE(S): K11.7 - Disturbances of salivary secretion; Y84.2 - Radiological procedure and radiotherapy as the cause of abnormal reaction of the patient, or of later complication, without mention of misadventure at the time of the procedure (3) Hypothyroidism (acquired): CODE(S): E03.9 - Hypothyroidism, unspecified (4) Anemia: CODE(S): D64.9 - Anemia, unspecified QUALIFIERS: Anemia type: other cause Other causes of anemia: chronic disease, other Qualified Code(s): D63.8 - Anemia in other chronic diseases classified elsewhere (5) Weight loss: CODE(S): R63.4 - Abnormal weight loss (6) Primary cancer of paranasal sinus: CODE(S): C31.9 - Malignant neoplasm of accessory sinus, unspecified (7) Ocular proptosis: CODE(S): H05.20 - Unspecified exophthalmos (8) Hypertension: CODE(S): I10 - Essential (primary) hypertension (9) Malignant poorly differentiated neuroendocrine tumors: CODE(S): C7A.1 - Malignant poorly differentiated neuroendocrine tumors (10) 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: CODE(S): H54.61 - Unqualified visual loss, right eye, normal vision left eye (11) History of substance abuse: CODE(S): F19.11 - Other psychoactive substance abuse, in remission (12) Marijuana use, episodic: CODE(S): F12.90 - Cannabis use, unspecified, uncomplicated (13) Gout: CODE(S): M10.9 - Gout, unspecified (14) Gastric reflux: CODE(S): K21.9 - Gastro-esophageal reflux disease without esophagitis (15) Port-A-Cath in place: CODE(S): Z95.828 - Presence of other vascular implants and grafts (16) History of steroid therapy: CODE(S): Z92.241 - Personal history of systemic steroid therapy (17) History of hand surgery: CODE(S): Z98.890 - Other specified postprocedural states (18) History of surgery: CODE(S): Z98.890 - Other specified postprocedural states (19) History of eye surgery: CODE(S): Z98.890 - Other specified postprocedural states (20) History of esophagogastroduodenoscopy (EGD): CODE(S): Z98.890 - Other specified postprocedural states (21) History of surgery: CODE(S): Z98.890 - Other specified postprocedural states (22) Cancer: CODE(S): C80.1 - Malignant (primary) neoplasm, unspecified (23) Former smoker: CODE(S): Z87.891 - Personal history of nicotine dependence (24) Dysphagia: CODE(S): R13.10 - Dysphagia, unspecified PLAN: Plan This is a 64-year-old female who was 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 She subsequently received chemoradiation consisting of 6000 cGy delivered to the right paranasal sinuses and abutting the orbit as well as into the frontal sinus abutting the brain parenchyma. 5400 cGy were delivered to the bilateral neck with concurrent chemotherapy. She was treated using a VMAT plan with 6 MV photons. She did well following therapy, and is felt to be in remission. However, she has had recent severe nosebleeds from the right nostril. She has had persistent changes in taste as well as dysphagia, which has resulted in a weight loss of approximately 100 pounds. She is existing on pur?ed and soft food. She has lost nearly all of her dentition, with only several fragments of teeth remaining in the upper and lower dentition. She also suffers from decreased saliva production which creates dryness in her oral cavity. She has been evaluated by an oral surgeon, who anticipates removal of the remaining tooth fragments, and has recommended that hyperbaric oxygen therapy is an indicated modality pre and post dental extraction. The patient also has developed ptosis of the right eye as well as right eye blindness as a result of her radiation treatments. Indeed, it appears as though the patient is a candidate for hyperbaric oxygen therapy, with a diagnosis of osteoradionecrosis affecting the mandible and maxilla. A thorough review of the patient's history reveals no significant contraindications to proceeding with hyperbaric oxygen treatments. The indications and risks have been discussed with the patient in detail. The potential benefits have been thoroughly explained. The nature of hyperbaric oxygen therapy treatments have been discussed, and the patient has been given a tourl of the hyperbaric unit at our facility. The patient has had an EKG, dated March 29, 2025, which was normal. A chest x-ray was performed over March 19, 2025, which revealed no acute cardiopulmonary abnormalities. The patient has also been cleared by her helicopter technician, Dr. Queen. It is anticipated that the patient will undergo a total of 30 hyperbaric treatments, at 100% oxygen and 2 radha, for a total of 90 minutes with no air breaks. As per our facility protocol, it would be anticipated that the patient would receive 20 treatments prior to her oral surgery intervention, and 10 treatments afterwards. In this regard, efforts will be made to coordinate the patient's hyperbaric oxygen treatments with her oral surgeon. Insurance preauthorization will be obtained. Total time: 25 minutes
== END | disposition home or self-care (01) ==
LOC: RAD 07:47
PROVIDERS: PCP Nurse Practitioner Family; Referring Provider Surgery; Visit Provider Surgery
DX: M85.88 Other specified disorders of bone density and structure, other site (principal)
CPT/HCPCS: 71046

== ENCOUNTER → 2025-03-29 | Outpatient (CLI) | payer MEDICARE, MEDICAID, SELFPAY ==
--- NOTE | 2025-03-29 06:52 | EKG12_ITS ---
Test Reason : PREOP Blood Pressure : */* mmHG Vent. Rate : 67 BPM Atrial Rate : 67 BPM P-R Int : 162 ms QRS Dur : 82 ms QT Int : 392 ms P-R-T Axes : 71 63 52 degrees QTcB Int : 414 ms Normal sinus rhythm Normal ECG Confirmed by ROLY MCKENZIE ([id number]), digital editor MARY LEVIN ([id number]) on 03/30/2025 5:56:12 AM Referred By: Mike Turner Confirmed By: ROLY MCKENZIE
== END | disposition home or self-care (01) ==
LOC: PSN 06:51
PROVIDERS: PCP Nurse Practitioner Family; Referring Provider Surgery; Visit Provider Surgery
DX: I10 Essential (primary) hypertension (principal)
CPT/HCPCS: 93005

== ENCOUNTER 2025-03-30 08:15 | Outpatient (RCR) | payer MEDICARE, MEDICAID, SELFPAY ==
[2025-03-16 10:14] VITALS: BP 130/72; PULSE 60; RESP 16; TEMP 36.5; BMI 20.3
--- NOTE | 2025-03-18 15:26 | PCM.WC.HP ---
History of Present Illness Date of Service: 03/16/25 Chief Complaint: Osteoradionecrosis of the mandible History of Wound: This is a 64-year-old female who was referred to the [facility] for evaluation relative to possible treatment with hyperbaric oxygen therapy for osteoradionecrosis of the mandible. The patient's medical history is nicely summarized by her Radiation Oncologist, Dr. 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 She had post-chemotherapy MRI brain and PET scan demonstrating very favorable response to treatment. From 07/01/2023 – 08/13/2023 she completed definitive chemoradiation. History of Present Illness: 02/12/2023: CT sinus without contrast was performed. There is evidence for right-sided proptosis there is soft tissue extending into the right medial periorbital space as well as the olfactory sulcus from the frontal sinus. There is right preseptal stranding and right frontal scalp soft tissue irregularity. There is permeative destruction of the right posterior and central frontal sinus estrada and replacement of the right lamina papyracea. Recommend MRI to further evaluate this lesion. 02/13/2023: CT head/brain without contrast was performed. This demonstrated a 4.4 x 2.4 x 5.1 cm masslike soft tissue lesion predominantly involving the right ethmoid and both frontal sinuses. 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 Recommend MRI and ENT consultation. 02/15/2023: MRI brain with and without contrast was performed. This demonstrated an expansile T2 hypointense heterogeneously diffusion restricting enhancing mass involving the right middle and superior nasal cavity, medial aspect of the right maxillary sinus, right ethmoid air cells, medial wall and superior wall and very medial portions of the inferior wall of the right orbit, right nasolacrimal duct, extraconal portion of the right orbit medially and superiorly with extension anteriorly to along the anterior medial aspect of the superior portion of the globe in the region of the preseptal soft tissues. Left anterior ethmoid air cells, and bilateral frontal sinuses through anterior skull base and into the extra-axial spaces adjacent to the anterior inferior bilateral frontal lobes as well as through the anterior portion of the frontal bone and frontal sinuses into the adjacent superficial soft tissues. There is mild edema of the right anterior inferior frontal lobe. In addition to the extra-axial intracranial portions of this mass there is a smooth thin dural thickening predominantly along the anterior aspect of the frontal lobes and along the falx. The majority of the right sided extraocular muscles appear to be displaced and not definitively involved. The intraconal fat is preserved. The optic nerves and optic nerve canals do not appear to be involved. The globe does not appear to be involved although there is abutment of the right globe medially and superiorly. There are similar changes involving the left medial orbital wall suspicious for left intraorbital involvement, the left infraorbital fissure, superior orbital fissures and pterygopalatine fossa do not appear to be involved. No abnormal enhancement of the intracranial portions of the cranial nerves is identified. No other abnormalities are noted. 03/04/2023: Patient was evaluated by ENT. Patient is unable to open the right eye due to considerable cutaneous tumor involvement at the superior medial orbit causing mass effect. Clinical type low back. Neurologically stable except for some cranial nerve V2 and V1 diminished sensation at the right greater than left. Significant tenderness is noted to palpation of firm subcutaneous nodules overlying midline and right frontal sinus and right superior medial cutaneous orbit lesion. 03/04/2023: Patient completed nasal endoscopy and biopsy. There is evidence of a friable mass on the right side in the area of the middle turbinate, biopsies were obtained. Left side demonstrated no evidence of disease. Pathology demonstrated poorly differentiated carcinoma with neuroendocrine features. 03/08/2023: Patient was presented at head and neck tumor board at . Recommendation was to proceed with induction chemotherapy. Patient is felt to have a clinical T4b N0 poorly differentiated carcinoma with neuroendocrine features. Disease appears to be emanating from the right paranasal sinuses and involves meningeal and brain as well as soft tissue. 03/25/2023: initiated neoadjuvant chemotherapy with carboplatin/etoposide 04/09/2023: PET scan was performed. This demonstrated increased glucose metabolism found in the anterior skull base involving the superior aspect of the left and to a lesser extent to the right orbit, the calculated maximum SUV is 5.2 with a maximum diameter of 7.8 cm. 06/14/2023: MRI brain with and without contrast was performed. 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 There is still abnormal soft tissue opacification enhancement across the frontal sinuses and the right ethmoid air cells which may represent residual malignancy in these regions. The previously seen intensely enhancing 4.9 x 2.3 cm extra-axial lobular pleural-based mass in the anterior floor of the bilateral frontal lobe/gyrus recti demonstrates 90% interval resolution decreased in size with only minimal dural thickening and enhancement seen in these regions. 06/18/2023: PET scan was performed. This demonstrated no evidence of viable neoplasm. Compared to the prior exam there has been a complete response of the previously identified abnormalities. From 07/01/2023 – 08/13/2023: received definitive chemoradiation consisting of 6000 cGy delivered to the current abnormality on MRI which is PET negative involving the paranasal sinuses and abutting the orbit as well as into the frontal sinus abutting the brain parenchyma and 5400 cGy delivered to the bilateral neck all in 30 fractions with concurrent chemotherapy. She was treated using a VMAT plan with 6 MV photons. She was treated with concurrent weekly cisplatin. 11/06/2023: eval by ENT. CHARLI AMOS in 2 months. 11/12/2023: PET scan was performed. This demonstrated no evidence of recurrent neoplasm, no evidence of metastatic disease. 11/14/2023: Patient completed MRI of the orbits with and without contrast. This demonstrated evidence of pansinusitis but no other abnormalities noted. 05/12/2024: CT neck showed pansinusitis, stable, no new findings. Radiation Treatment History: 1) From 07/01/2023 – 08/13/2023: received definitive chemoradiation consisting of 6000 cGy delivered to the current abnormality on MRI which is PET negative involving the paranasal sinuses and abutting the orbit as well as into the frontal sinus abutting the brain parenchyma and 5400 cGy delivered to the bilateral neck all in 30 fractions with concurrent chemotherapy. She was treated using a VMAT plan with 6 MV photons. She was treated with concurrent weekly cisplatin." The patient's history is negative for myocardial infarction, congestive heart failure, hypertension, diabetes mellitus, cerebrovascular accident, pulmonary disease, and renal disease. The patient has lost approximately 100 pounds due to dysphagia and loss of her dentition, requiring her to consume a soft and puréed diet. 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 Additionally, the patient has experienced recent nosebleeds from the right nostril. She is a former smoker, but occasionally uses marijuana products. The patient does not suffer from seizures, claustrophobia, has no untreated cancer, has no history of barotrauma, and does not have a cardiac pacemaker. 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 Malignant neuroendocrine neoplasm Gout Gastric reflux Hypothyroidism (acquired) Port-A-Cath in place Shingles Anemia Weight loss Diarrhea Constipation Drug induced neutropenia Thrush Dehydration Pituitary disorder NEC Wears glasses Wears dentures Post-menopausal Substance abuse History of steroid therapy Thyroid disease Arthritis Back pain Former smoker Leg cramps Cancer Encounter for chemotherapy management Anemia Ocular proptosis Malignant poorly differentiated neuroendocrine tumors Neck abscess Hypertension Primary cancer of paranasal sinus Home Medications Medication Instructions Recorded Last Taken Type atropine 0.01 % eye drops 1 drp ophthalmic (eye) DAILY 05/25/24 Unknown History difluprednate 0.05 % eye drops 1 drp ophthalmic (eye) BID 05/25/24 Unknown History oxymetazoline 0.05 % nasal spray 2 spray intranasal Q12H PRN nasal 05/25/24 Unknown History (12 Hour Nasal Relief [place]) congestion pantoprazole 20 mg tablet,delayed 20 mg PO QDAY 05/25/24 Unknown History release Held on 03/16/25. Instructions: STARTED PEPCID vitamin E acetate 134 mg (200 134 mg PO QDAY 05/25/24 Unknown History unit) capsule lidocaine-prilocaine 2.5 %-2.5 % 20 g topical ONCE #30 grams 08/12/24 Unknown Rx topical cream dorzolamide 22.3 mg-timolol 6.8 1 drp RIGHT EYE BID 11/05/24 Unknown History mg/mL eye drops levothyroxine 88 mcg tablet 88 mcg PO MOTUWETHSA 11/05/24 Unknown History hydrocodone-acetaminophen 5-325mg 1 tab PO BID PRN pain 11/23/24 Unknown History 5mg-325mg multivitamin 1 tab PO QAM 12/01/24 Unknown History pentoxifylline 400 mg 400 mg PO BID 03/11/25 Unknown History tablet,extended release pilocarpine HCl 7.5 mg tablet 7.5 mg PO ONCE #90 tabs 03/11/25 Unknown Rx dexamethasone 4 mg tablet 4 mg PO DAILY 03/16/25 Unknown History doxycycline monohydrate 100 mg 100 mg PO BID 03/16/25 Unknown History capsule famotidine 40 mg tablet 40 mg PO QHS 03/16/25 Unknown History Allergy/AdvReac Type Severity Reaction Status Date / Time No Known Allergies Allergy Verified 03/16/25 10:34 Family History Mother Hypertension Diabetes Aunt Hypertension Father Diabetes Mother Hypertension Surgical History History of surgery History of esophagogastroduodenoscopy (EGD) History of eye surgery History of surgery History of hand surgery Social History household members: none current occupational status: unemployed Smoking Status: Light Smoker (<10/day) alcohol intake: current alcohol intake frequency: holidays/special occasions only substance use type: does not use Vital Signs Vital Signs Vital Signs: Weight Weight: 115 lb Body Mass Index (BMI) 20.3 Physical Exam Const alert, oriented x3, no apparent distress, average body habitus and no limitations Constitutional Narrative: The patient's BMI is 20.4. General Appearance: cooperative, comfortable, well kempt and well developed Orientation / Consciousness: awake, oriented to person, oriented to place and oriented to time Exam Limitations: no limitations HEENT normocephalic and head/scalp atraumatic Head and Scalp: normal to inspection, normocephalic and atraumatic Face and Sinus: normal facial exam Nose: external nose normal External Ear: external ears normal External Auditory Canal: EAC's normal Tympanic Membrane: TM's normal bilaterally Mouth: other Other Details: The patient is nearly edentulous. Nearly all of her teeth are absent from the mandible and maxilla, with only a few scattered fractured remnants of teeth. Teeth and Gingiva: poor dentition Eyes Eyes Narrative: Ptosis is noted involving the right eye. Neck full ROM Chest inspection of chest normal Chest Narrative: A subcutaneous intravenous port is noted in the right upper anterior chest. Resp normal respiratory effort, normal air movement, no retractions, no use of accessory muscles and clear to auscultation bilaterally Effort and Inspection: able to speak in complete sentences and symmetric chest movement Auscultation: clear to auscultation bilaterally Cardio regular rate, regular rhythm, S1 normal heart sound, S2 normal heart sound, no murmurs, no rub and no gallops Rate: regular rate Rhythm: regular rhythm Heart Sounds: S1 normal and S2 normal Extremity normal to inspection and no calf tenderness General Extremity: Negative for clubbing or cyanosis Neuro oriented x3, CN's II-XII intact bilaterally, moves all extremities, no focal motor deficits and no sensory deficits noted Sensorium / Orientation: awake, alert, oriented to person, oriented to place and oriented to time Speech: speech normal Psych Appearance: grossly normal and appropriate Attitude: calm Activity / Motor Behavior: appropriate eye contact Speech: normal speech Mood & Affect: euthymic mood Thought Process: normal thought process Thought Content: normal thought content Attention / Concentration: attention grossly intact Debridement Note Debridement Note Post-Debridement Measurements and Additional Note: Post-Debridement Measurements/Treatment - Nurse 1 - General Ulcer Assessment Start: 03/16/25 10:12 Freq: Status: Active Protocol: NERY Activity Type Activity Date Activity User E-sign Co-sign Detail Recorded Client Recorded Date Recorded By Document 03/16/25 10:14 [facility] [id number] 03/16/25 10:33 [facility] 03/16/25 10:14 - Today's Visit Information Type of service HBO Consult Arrival Mode Ambulatory Transfer Assistance None Patient Identification Verified (Name & Yes ) Patient Requires Transmission-Based No Precautions Height and Weight Height 5 ft 3 in Weight 115 lb Weight in Pounds 115.0 lbs Weight Measurement Method Stated by Patient Body Mass Index (BMI) 20.3 BMI Classification Normal Vital Signs Temperature (97.8 F-99.1 F) 97.7 F L Temperature Source Temporal Pulse Rate (60-100) 60 Pulse Location Monitor Respiratory Rate (12-18) 16 Respiratory rate source Observation Oxygen Delivery Method Room Air Blood Pressure (90/60-120/80) 130/72 H Blood Pressure Mean 91 Source Monitor Position Sitting Blood Pressure Location Left Arm History Since Last Visit- (Skip if this is Patient's initial visit) Left Footwear Regular Shoe Right Footwear Regular Shoe Pain Scale: 0-10 Numeric Is Patient Pain Free? Yes WC - Nurse 3 - General Ulcer D/C NN Start: 03/16/25 10:12 Freq: Status: Active Protocol: Activity Type Activity Date Activity User E-sign Co-sign Detail Recorded Client Recorded Date Recorded By Document 03/16/25 11:33 J[facility] [id number] 03/16/25 11:34 03/16/25 11:33 Is Patient Pain Free? Yes WC - Visit Discharge Discharge Condition Stable Ambulatory Status Ambulatory Transportation Private Auto Medication Reconcilliation completed & Yes provided to patient/care provider Clinical Summary of Care Provided Yes Lab / Micro Data Attestation: I reviewed the patient's lab results. Labs: Laboratory Tests 03/12/25 17:50 WBC 2.6 L Hgb 10.4 L Hct 32.2 L Plt Count 231 PT 14.0 INR 1.1 Sodium 134 Potassium 3.4 Chloride 100 Carbon Dioxide 25.3 Anion Gap 9 BUN 11 Creatinine 0.66 L Glucose 101 H Calcium 9.7 Iron 24 L TIBC 235 L Iron Saturation 10.0 L Unsaturated IBC 211 L Ferritin 678 H Total Bilirubin 0.37 AST 19 ALT 13 Alkaline Phosphatase 92 Total Protein 7.9 Albumin 3.7 Globulin 4.2 Albumin/Globulin Ratio 0.9 Charges/Coding Visit Charges Office Visits / Consults: [id number] OV L4 New 45min Assessment/Plan Assessment/Plan (1) Osteoradionecrosis of mandible: CODE(S): M27.2 - Inflammatory conditions of jaws; Y84.2 - Radiological procedure and radiotherapy as the cause of abnormal reaction of the patient, or of later complication, without mention of misadventure at the time of the procedure (2) Xerostomia due to radiotherapy: CODE(S): K11.7 - Disturbances of salivary secretion; Y84.2 - Radiological procedure and radiotherapy as the cause of abnormal reaction of the patient, or of later complication, without mention of misadventure at the time of the procedure (3) Hypothyroidism (acquired): CODE(S): E03.9 - Hypothyroidism, unspecified (4) Anemia: CODE(S): D64.9 - Anemia, unspecified QUALIFIERS: Anemia type: other cause Other causes of anemia: chronic disease, other Qualified Code(s): D63.8 - Anemia in other chronic diseases classified elsewhere (5) Weight loss: CODE(S): R63.4 - Abnormal weight loss (6) Primary cancer of paranasal sinus: CODE(S): C31.9 - Malignant neoplasm of accessory sinus, unspecified (7) Ocular proptosis: CODE(S): H05.20 - Unspecified exophthalmos (8) Hypertension: CODE(S): I10 - Essential (primary) hypertension (9) Malignant poorly differentiated neuroendocrine tumors: CODE(S): C7A.1 - Malignant poorly differentiated neuroendocrine tumors (10) 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: CODE(S): H54.61 - Unqualified visual loss, right eye, normal vision left eye (11) History of substance abuse: CODE(S): F19.11 - Other psychoactive substance abuse, in remission (12) Marijuana use, episodic: CODE(S): F12.90 - Cannabis use, unspecified, uncomplicated (13) Gout: CODE(S): M10.9 - Gout, unspecified (14) Gastric reflux: CODE(S): K21.9 - Gastro-esophageal reflux disease without esophagitis (15) Port-A-Cath in place: CODE(S): Z95.828 - Presence of other vascular implants and grafts (16) History of steroid therapy: CODE(S): Z92.241 - Personal history of systemic steroid therapy (17) History of hand surgery: CODE(S): Z98.890 - Other specified postprocedural states (18) History of surgery: CODE(S): Z98.890 - Other specified postprocedural states (19) History of eye surgery: CODE(S): Z98.890 - Other specified postprocedural states (20) History of esophagogastroduodenoscopy (EGD): CODE(S): Z98.890 - Other specified postprocedural states (21) History of surgery: CODE(S): Z98.890 - Other specified postprocedural states (22) Cancer: CODE(S): C80.1 - Malignant (primary) neoplasm, unspecified (23) Former smoker: CODE(S): Z87.891 - Personal history of nicotine dependence (24) Dysphagia: CODE(S): R13.10 - Dysphagia, unspecified PLAN: Plan This is a 64-year-old female who was 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 She subsequently received chemoradiation consisting of 6000 cGy delivered to the right paranasal sinuses and abutting the orbit as well as into the frontal sinus abutting the brain parenchyma. 5400 cGy were delivered to the bilateral neck with concurrent chemotherapy. She was treated using a VMAT plan with 6 MV photons. She did well following therapy, and is felt to be in remission. However, she has had recent severe nosebleeds from the right nostril. She has had persistent changes in taste as well as dysphagia, which has resulted in a weight loss of approximately 100 pounds. She is existing on puréed and soft food. She has lost nearly all of her dentition, with only several fragments of teeth remaining in the upper and lower dentition. She also suffers from decreased saliva production which creates dryness in her oral cavity. She has been evaluated by an oral surgeon, who anticipates removal of the remaining tooth fragments, and has recommended that hyperbaric oxygen therapy is an indicated modality pre and post dental extraction. The patient also has developed ptosis of the right eye as well as right eye blindness as a result of her radiation treatments. Indeed, it appears as though the patient is a candidate for hyperbaric oxygen therapy, with a diagnosis of osteoradionecrosis affecting the mandible and maxilla. A thorough review of the patient's history reveals no significant contraindications to proceeding with hyperbaric oxygen treatments. The indications and risks have been discussed with the patient in detail. The potential benefits have been thoroughly explained. The nature of hyperbaric oxygen therapy treatments have been discussed, and the patient has been given a total of the hyperbaric unit at our facility. It is anticipated that the patient would undergo a total of 30 hyperbaric treatments, at 100% oxygen and 2 radha for a total of 90 minutes with no air breaks. As per our facility protocol, it would be anticipated that the patient would receive 20 treatments prior to her oral surgery intervention, and 10 treatments afterwards. Insurance preauthorization will be sought. A chest x-ray, EKG, and echocardiogram will be obtained for review. 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 Total time: 48 minutes
--- NOTE | 2025-03-18 19:57 | PCM.WC.HP ---
History of Present Illness Chief Complaint: Osteoradionecrosis of the mandible History of Wound: This is a 64-year-old female who was referred to the [facility] for evaluation relative to possible treatment with hyperbaric oxygen therapy for osteoradionecrosis of the mandible. The patient's medical history is nicely summarized by her Radiation Oncologist, Dr. 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 She had post-chemotherapy MRI brain and PET scan demonstrating very favorable response to treatment. From 07/01/2023 – 08/13/2023 she completed definitive chemoradiation. History of Present Illness: 02/12/2023: CT sinus without contrast was performed. There is evidence for right-sided proptosis there is soft tissue extending into the right medial periorbital space as well as the olfactory sulcus from the frontal sinus. There is right preseptal stranding and right frontal scalp soft tissue irregularity. There is permeative destruction of the right posterior and central frontal sinus estrada and replacement of the right lamina papyracea. Recommend MRI to further evaluate this lesion. 02/13/2023: CT head/brain without contrast was performed. This demonstrated a 4.4 x 2.4 x 5.1 cm masslike soft tissue lesion predominantly involving the right ethmoid and both frontal sinuses. 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 Recommend MRI and ENT consultation. 02/15/2023: MRI brain with and without contrast was performed. This demonstrated an expansile T2 hypointense heterogeneously diffusion restricting enhancing mass involving the right middle and superior nasal cavity, medial aspect of the right maxillary sinus, right ethmoid air cells, medial wall and superior wall and very medial portions of the inferior wall of the right orbit, right nasolacrimal duct, extraconal portion of the right orbit medially and superiorly with extension anteriorly to along the anterior medial aspect of the superior portion of the globe in the region of the preseptal soft tissues. Left anterior ethmoid air cells, and bilateral frontal sinuses through anterior skull base and into the extra-axial spaces adjacent to the anterior inferior bilateral frontal lobes as well as through the anterior portion of the frontal bone and frontal sinuses into the adjacent superficial soft tissues. There is mild edema of the right anterior inferior frontal lobe. In addition to the extra-axial intracranial portions of this mass there is a smooth thin dural thickening predominantly along the anterior aspect of the frontal lobes and along the falx. The majority of the right sided extraocular muscles appear to be displaced and not definitively involved. The intraconal fat is preserved. The optic nerves and optic nerve canals do not appear to be involved. The globe does not appear to be involved although there is abutment of the right globe medially and superiorly. There are similar changes involving the left medial orbital wall suspicious for left intraorbital involvement, the left infraorbital fissure, superior orbital fissures and pterygopalatine fossa do not appear to be involved. No abnormal enhancement of the intracranial portions of the cranial nerves is identified. No other abnormalities are noted. 03/04/2023: Patient was evaluated by ENT. Patient is unable to open the right eye due to considerable cutaneous tumor involvement at the superior medial orbit causing mass effect. Clinical type low back. Neurologically stable except for some cranial nerve V2 and V1 diminished sensation at the right greater than left. Significant tenderness is noted to palpation of firm subcutaneous nodules overlying midline and right frontal sinus and right superior medial cutaneous orbit lesion. 03/04/2023: Patient completed nasal endoscopy and biopsy. There is evidence of a friable mass on the right side in the area of the middle turbinate, biopsies were obtained. Left side demonstrated no evidence of disease. Pathology demonstrated poorly differentiated carcinoma with neuroendocrine features. 03/08/2023: Patient was presented at head and neck tumor board at . Recommendation was to proceed with induction chemotherapy. Patient is felt to have a clinical T4b N0 poorly differentiated carcinoma with neuroendocrine features. Disease appears to be emanating from the right paranasal sinuses and involves meningeal and brain as well as soft tissue. 03/25/2023: initiated neoadjuvant chemotherapy with carboplatin/etoposide 04/09/2023: PET scan was performed. This demonstrated increased glucose metabolism found in the anterior skull base involving the superior aspect of the left and to a lesser extent to the right orbit, the calculated maximum SUV is 5.2 with a maximum diameter of 7.8 cm. 06/14/2023: MRI brain with and without contrast was performed. 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 There is still abnormal soft tissue opacification enhancement across the frontal sinuses and the right ethmoid air cells which may represent residual malignancy in these regions. The previously seen intensely enhancing 4.9 x 2.3 cm extra-axial lobular pleural-based mass in the anterior floor of the bilateral frontal lobe/gyrus recti demonstrates 90% interval resolution decreased in size with only minimal dural thickening and enhancement seen in these regions. 06/18/2023: PET scan was performed. This demonstrated no evidence of viable neoplasm. Compared to the prior exam there has been a complete response of the previously identified abnormalities. From 07/01/2023 – 08/13/2023: received definitive chemoradiation consisting of 6000 cGy delivered to the current abnormality on MRI which is PET negative involving the paranasal sinuses and abutting the orbit as well as into the frontal sinus abutting the brain parenchyma and 5400 cGy delivered to the bilateral neck all in 30 fractions with concurrent chemotherapy. She was treated using a VMAT plan with 6 MV photons. She was treated with concurrent weekly cisplatin. 11/06/2023: eval by KLEBER. CHARLI AMOS in 2 months. 11/12/2023: PET scan was performed. This demonstrated no evidence of recurrent neoplasm, no evidence of metastatic disease. 11/14/2023: Patient completed MRI of the orbits with and without contrast. This demonstrated evidence of pansinusitis but no other abnormalities noted. 05/12/2024: CT neck showed pansinusitis, stable, no new findings. Radiation Treatment History: 1) From 07/01/2023 – 08/13/2023: received definitive chemoradiation consisting of 6000 cGy delivered to the current abnormality on MRI which is PET negative involving the paranasal sinuses and abutting the orbit as well as into the frontal sinus abutting the brain parenchyma and 5400 cGy delivered to the bilateral neck all in 30 fractions with concurrent chemotherapy. She was treated using a VMAT plan with 6 MV photons. She was treated with concurrent weekly cisplatin. Interval History: Patient returns for routine follow-up approximately 18 months after completing definitive chemoradiation. She reports doing fairly well overall. She does report having right-sided nosebleed on Saturday and also yesterday this week where she had it dripping out and it eventually stopped when she used a Kleenex, she had been blowing her nose prior to this. She denies nasal obstruction or pain. She reports some persistent taste changes, she is eating and drinking by mouth, taking supplements (boost) in addition to her diet, weight improved, pureed food and soft foods. 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 Malignant neuroendocrine neoplasm Gout Gastric reflux Hypothyroidism (acquired) Port-A-Cath in place Shingles Anemia Weight loss Diarrhea Constipation Drug induced neutropenia Thrush Dehydration Pituitary disorder NEC Wears glasses Wears dentures Post-menopausal Substance abuse History of steroid therapy Thyroid disease Arthritis Back pain Former smoker Leg cramps Cancer Encounter for chemotherapy management Anemia Ocular proptosis Malignant poorly differentiated neuroendocrine tumors Neck abscess Hypertension Primary cancer of paranasal sinus Home Medications Medication Instructions Recorded Last Taken Type atropine 0.01 % eye drops 1 drp ophthalmic (eye) DAILY 05/25/24 Unknown History difluprednate 0.05 % eye drops 1 drp ophthalmic (eye) BID 05/25/24 Unknown History oxymetazoline 0.05 % nasal spray 2 spray intranasal Q12H PRN nasal 05/25/24 Unknown History (12 Hour Nasal Relief [place]) congestion pantoprazole 20 mg tablet,delayed 20 mg PO QDAY 05/25/24 Unknown History release Held on 03/16/25. Instructions: STARTED PEPCID vitamin E acetate 134 mg (200 134 mg PO QDAY 05/25/24 Unknown History unit) capsule lidocaine-prilocaine 2.5 %-2.5 % 20 g topical ONCE #30 grams 08/12/24 Unknown Rx topical cream dorzolamide 22.3 mg-timolol 6.8 1 drp RIGHT EYE BID 11/05/24 Unknown History mg/mL eye drops levothyroxine 88 mcg tablet 88 mcg PO MOTUWETHSA 11/05/24 Unknown History hydrocodone-acetaminophen 5-325mg 1 tab PO BID PRN pain 11/23/24 Unknown History 5mg-325mg multivitamin 1 tab PO QAM 12/01/24 Unknown History pentoxifylline 400 mg 400 mg PO BID 03/11/25 Unknown History tablet,extended release pilocarpine HCl 7.5 mg tablet 7.5 mg PO ONCE #90 tabs 03/11/25 Unknown Rx dexamethasone 4 mg tablet 4 mg PO DAILY 03/16/25 Unknown History doxycycline monohydrate 100 mg 100 mg PO BID 03/16/25 Unknown History capsule famotidine 40 mg tablet 40 mg PO QHS 03/16/25 Unknown History Allergy/AdvReac Type Severity Reaction Status Date / Time No Known Allergies Allergy Verified 03/16/25 10:34 Family History Mother Hypertension Diabetes Aunt Hypertension Father Diabetes Mother Hypertension Surgical History History of surgery History of esophagogastroduodenoscopy (EGD) History of eye surgery History of surgery History of hand surgery Social History household members: none current occupational status: unemployed Smoking Status: Light Smoker (<10/day) alcohol intake: current alcohol intake frequency: holidays/special occasions only substance use type: does not use Vital Signs Vital Signs Vital Signs: Weight Weight: 115 lb Body Mass Index (BMI) 20.3 Debridement Note Debridement Note Post-Debridement Measurements and Additional Note: Post-Debridement Measurements/Treatment - Nurse 1 - General Ulcer Assessment Start: 03/16/25 10:12 Freq: Status: Active Protocol: NERY Activity Type Activity Date Activity User E-sign Co-sign Detail Recorded Client Recorded Date Recorded By Document 03/16/25 10:14 [facility] [id number] 03/16/25 10:33 [facility] 03/16/25 10:14 - Today's Visit Information Type of service HBO Consult Arrival Mode Ambulatory Transfer Assistance None Patient Identification Verified (Name & Yes ) Patient Requires Transmission-Based No Precautions Height and Weight Height 5 ft 3 in Weight 115 lb Weight in Pounds 115.0 lbs Weight Measurement Method Stated by Patient Body Mass Index (BMI) 20.3 BMI Classification Normal Vital Signs Temperature (97.8 F-99.1 F) 97.7 F L Temperature Source Temporal Pulse Rate (60-100) 60 Pulse Location Monitor Respiratory Rate (12-18) 16 Respiratory rate source Observation Oxygen Delivery Method Room Air Blood Pressure (90/60-120/80) 130/72 H Blood Pressure Mean 91 Source Monitor Position Sitting Blood Pressure Location Left Arm History Since Last Visit- (Skip if this is Patient's initial visit) Left Footwear Regular Shoe Right Footwear Regular Shoe Pain Scale: 0-10 Numeric Is Patient Pain Free? Yes WC - Nurse 3 - General Ulcer D/C NN Start: 03/16/25 10:12 Freq: Status: Active Protocol: Activity Type Activity Date Activity User E-sign Co-sign Detail Recorded Client Recorded Date Recorded By Document 03/16/25 11:33 [facility] [id number] 03/16/25 11:34 03/16/25 11:33 Is Patient Pain Free? Yes WC - Visit Discharge Discharge Condition Stable Ambulatory Status Ambulatory Transportation Private Auto Medication Reconcilliation completed & Yes provided to patient/care provider Clinical Summary of Care Provided Yes
[2025-03-30 08:07] VITALS: BP 127/78; PULSE 60; RESP 14; TEMP 35.9; BMI 20.3
--- NOTE | 2025-03-30 08:32 | WC ---
follow up for HBO clearance
--- NOTE | 2025-03-30 10:46 | WC ---
Called to get [facility] approval for HBOT. Awaiting a return call.
--- NOTE | 2025-03-30 11:07 | WC ---
ENT returned call stating he has no issues with pt starting HBOT.There was no evidence of any remaining disease.
--- NOTE | 2025-03-30 11:38 | WC ---
Tiny from [facility] ' office returned called stating the doctor has no issues with patient starting HBO treatments.
--- NOTE | 2025-03-31 09:46 | WC ---
Spoke with himself and he will fax over something in writing stating it is fine for patient to start HBO treatments. Also called 's office and and requested clearance in writing and they as well agreed to fax it raciel.
--- NOTE | 2025-04-02 09:51 | WC ---
Spoke with Jaylene at concerning appt. She stated pt has an appt there 04-06-25 and they will touch base with me after the appt. to discuss her treatment plan to adjust HBO treatments accordingly.
== END 2025-04-04 23:59 | disposition home or self-care (01) ==
LOC: WC 08:15
PROVIDERS: PCP Nurse Practitioner Family; Referring Provider Student in an Organized Health Care Education/Training Program; Visit Provider Surgery
DX: M27.2 Inflammatory conditions of jaws (principal); C79.49 Secondary malignant neoplasm of other parts of nervous system; C7A.1 Malignant poorly differentiated neuroendocrine tumors; C31.9 Malignant neoplasm of accessory sinus, unspecified; F19.11 Other psychoactive substance abuse, in remission; R63.4 Abnormal weight loss; Z95.828 Presence of other vascular implants and grafts; R13.10 Dysphagia, unspecified; D63.8 Anemia in other chronic diseases classified elsewhere; M10.9 Gout, unspecified; H54.7 Unspecified visual loss; Z92.3 Personal history of irradiation; K21.9 Gastro-esophageal reflux disease without esophagitis; E03.9 Hypothyroidism, unspecified; I10 Essential (primary) hypertension; F12.90 Cannabis use, unspecified, uncomplicated; Z82.49 Family history of ischemic heart disease and other diseases of the circulatory system; F17.200 Nicotine dependence, unspecified, uncomplicated; K11.7 Disturbances of salivary secretion; Y84.2 Radiological procedure and radiotherapy as the cause of abnormal reaction of the patient, or of later complication, without mention of misadventure at the time of the procedure; Z92.241 Personal history of systemic steroid therapy; H05.20 Unspecified exophthalmos; Z68.20 Body mass index [BMI] 20.0-20.9, adult
CPT/HCPCS: 99213; 99214; G0463

== ENCOUNTER 2025-04-13 10:24 | Outpatient (RCR) | payer MEDICARE, MEDICAID, SELFPAY ==
--- NOTE | 2025-04-13 15:29 | WC ---
Several attempts to coordinate care of patient has been met with resistance from [facility]. I last spoke with Martine who is the airport operations coordinator who refused to give email, phone number or any contact information for herself to make this coordination smoother. They stated the patient would have to call in giving permission for this facility to receive any information regarding care. Pt called spoke with Francesca and gave this permission. Martine stated she would call back in 1 day concerning any information on this patient.
--- NOTE | 2025-04-19 09:48 | WC ---
Called patient and left a message on her machine asking her response to returning to [facility] for dental care. Asked her to return call when she finds out possible procedure date and prior auth status.
== END 2025-05-04 23:59 | disposition home or self-care (01) ==
LOC: WC 10:24
PROVIDERS: PCP Nurse Practitioner Family; Referring Provider Student in an Organized Health Care Education/Training Program; Visit Provider Surgery
DX: Z09 Encounter for follow-up examination after completed treatment for conditions other than malignant neoplasm (principal)

== ENCOUNTER 2025-05-06 07:43 | Outpatient (CLI) | payer MEDICARE, MEDICAID, SELFPAY ==
[2025-05-06 08:07] LABS: Hematocrit 35.5 % (37-47); Hemoglobin 11.8 g/dL (12.0-15.0); Mean Corp Hgb Conc 33.2 g/dL (32-36); Mean Corpuscular Volume 84.3 fL (81-99); Mean Platelet Vol. 9.8 fl (6.2-12.0); Platelet Count 211 K/mm3 (150-450); RBC Distribution Width CV 14.9 % (11.6-14.6); RBC Distribution Width SD 45.9 fl (35.1-43.9); Red Blood Count 4.21 M/mm3 (4.2-5.4); White Blood Count 2.8 K/mm3 (4.4-11.0)
[2025-05-06 08:41] LABS: AST(SGOT) 30 U/L (<=31); Alanine Aminotransfer ALT/SGPT 19 U/L (<=34); Albumin, Serum 3.9 g/dL (3.4-4.8); Alkaline Phosphatase 102 U/L (35-104); Anion Gap 10 (5-15); BUN 8 mg/dL (4-19); BUN/Creat Ratio 13.2 RATIO (10-20); Calcium,Total 9.5 mg/dL (7.6-11.0); Carbon Dioxide 25.2 mmol/L (21.0-32.0); Chloride 99 mmol/L (98-108); Globulin 4.0 g/dL (2.2-4.2); Glucose 93 mg/dL (70-99); Magnesium 1.8 mg/dL (1.5-2.2); Potassium 4.2 mmol/L (3.3-5.1); Vitamin B12 933 pg/mL (180-914)
== END 2025-05-06 23:59 | disposition home or self-care (01) ==
PROVIDERS: PCP Nurse Practitioner Family; Referring Provider Nurse Practitioner Family; Visit Provider Nurse Practitioner Family
DX: C31.9 Malignant neoplasm of accessory sinus, unspecified (principal); D50.9 Iron deficiency anemia, unspecified; R53.82 Chronic fatigue, unspecified
CPT/HCPCS: 36591; 80053; 82607; 83735; 84443; 85027; A4216

== ENCOUNTER → 2025-05-27 | Outpatient (CLI) | payer MEDICARE, MEDICAID, SELFPAY ==
--- NOTE | 2025-05-27 13:39 | CT_ITS ---
PROCEDURE: CT CHEST AND ABD W/ CONTRAST 05/27/2025 REASON FOR EXAM: F/U PARANASAL SINUSES CANCER IV CONTRAST ONLY TECHNIQUE: Chest and abdomen CT with intravenous contrast. Coronal and Sagittal reconstruction series were provided. One or more dose reduction techniques were used (e.g., Automated exposure control, adjustment of the mA and/or kV according to patient size, use of iterative reconstruction technique. PATIENT PREPARATION: Per protocol ORAL CONTRAST TYPE: None. Later CONTRAST: Isovue-300 VOLUME: 100mL RADIATION DOSE SUMMARY: CTDlvol: 14 mGy DLP: 1462.55 mGycm COMPARISON: Prior study dated November 16, 2024. FINDINGS: CT CHEST: Hardware: A right-sided port a catheter is seen with the tip in the superior vena cava. Lymph nodes: No evidence of mediastinal or hilar lymphadenopathy. Heart and Vasculature: Atherosclerotic calcification of the aortic arch. No significant coronary artery calcification is seen. Lungs and Airways: The lungs are clear. Stable mild scarring at the lung apices bilaterally. Pleura: No pleural effusion. CT ABDOMEN: Liver: Normal size. No mass. Gallbladder: Small amount of sludge seen along the dependent portion of the gallbladder lumen. Spleen: Normal size. Pancreas: Normal size without evidence of mass surrounding inflammation or ductal dilation. Adrenals: Unremarkable Kidneys: Normal renal sizes. No hydronephrosis. Bowel: Unremarkable Lymph nodes: Unremarkable. Vasculature: Mild diffuse atherosclerotic calcifications are noted. Peritoneum / Retroperitoneum: Unremarkable Bones: Degenerative changes of the spine. CT/CT Chest AND Abd W/ Contrast IMPRESSION: Coronary artery calcification (CAC) is is absent Stable seen. Reading Location: [id number]
--- NOTE | 2025-05-27 13:39 | CT_ITS ---
PROCEDURE: SINUS/FACIAL BONE WITH CONTRAS 05/27/2025 REASON FOR EXAM: F/U PARANASAL SINUSES CANCER TECHNIQUE: Procedure Code: CTSIW Modality: CT Procedure: SINUS/FACIAL BONE WITH CONTRAS Coronal and Sagittal reconstruction series were provided. CONTRAST: VOLUME: mL One or more dose reduction techniques were used (e.g., Automated exposure control, adjustment of the mA and/or kV according to patient size, use of iterative reconstruction technique). COMPARISON: 03/12/2025. FINDINGS: Mucosal opacification completely fills all of the paranasal sinuses, with the exception of the left sphenoid sinus which demonstrates mild mucosal thickening. Inspissated mucus is noted along the periphery of the bilateral maxillary sinuses, further suggestive of chronic sinusitis. Fluid is noted within several right mastoid air cells. These findings are not significantly changed from the previous CT. Included in these erosive changes included erosion of the inner wall of the right frontal sinus, unchanged from the previous study and concerning for intracranial extension. Stable postsurgical changes of bilateral nasoantral windows. Moderate degenerative changes of the cervical spine. CT/Sinus/Facial Bone WITH Contras IMPRESSION: Stable chronic paranasal sinusitis and right mastoid effusion. Osseous erosive changes involving the sinuses, as described above and also unchanged from the previous study. Included in these erosive changes include erosion of the inner wall of the right frontal sinus, unchanged from the previous study and concerning for intracrania l extension. These erosive changes may be due to radiation necrosis or chronic invasive sinusitis. Reading Location: [id number]
--- NOTE | 2025-05-27 13:39 | CT_ITS ---
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 COMPARISON: CT dated 11/16/2024. FINDINGS: The parapharyngeal soft tissues appear symmetric and unremarkable. The visualized airway is patent. The major salivary glands appear symmetric and unremarkable. No cervical lymphadenopathy. The hyoid bone, thyroid cartilage, and cricoid cartilage appear intact. The epiglottis and aryepiglottic folds appear unremarkable. The vocal cords are symmetric. The thyroid gland appears unremarkable. The orbits and their contents appear unremarkable. The visualized lung apices are clear. A right-sided MediPort is in place. Severe mucosal thickening is noted throughout the paranasal sinuses, with multiple areas of osseous erosion involving the estrada and septations within the paranasal sinuses, including erosion of the posterior wall of the right frontal sinus and the right planum sphenoidale, which may represent intracranial communication. Erosive changes may also result in bilateral intraorbital communication with the bilateral ethmoid air cells. There are areas of inspissated mucus, most evident in the bilateral maxillary sinuses. Fluid is noted within several right mastoid air cells. Moderate cervical spondylosis, not significantly changed. CT/Soft Tissue Neck WITH Contrast IMPRESSION: Severe mucosal thickening throughout the paranasal sinuses, as described above and not significantly changed from the previous study. Multiple areas of osseous erosion involving the estrada and septations within the paranasal sinuses, similar to the previous study. 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 Please correlate clinicall y. Findings concerning for communication of the right frontal and right ethmoid sinuses with the intracranial contents, and araceli ateral intraorbital communication with the bilateral ethmoid sinuses. Reading Location: [id number]
[2025-05-27] MEDS: 0.9 % NaCl (Sterile) Posiflush 10 mL IV (14:10)
== END | disposition home or self-care (01) ==
LOC: CT 13:38
PROVIDERS: PCP Nurse Practitioner Family; Referring Provider Internal Medicine Hematology & Oncology; Visit Provider Internal Medicine Hematology & Oncology
DX: C31.9 Malignant neoplasm of accessory sinus, unspecified (principal); C7A.1 Malignant poorly differentiated neuroendocrine tumors
CPT/HCPCS: 70487; 70491; 71260; 74160; Q9967; A4216